=== PATIENT | female | born 1960 | race Caucasian/White ===

== ENCOUNTER → 2017-01-16 | Outpatient (CLI) | payer BC ==
[~2017-01-16] MED LIST: ESTCR VA
--- NOTE | 2017-01-17 07:39 | MAMMOGRAPHY REPORT ---
BILATERAL DIGITAL SCREENING MAMMOGRAM TOMOSYNTHESIS WITH CAD: 01/16/2017 CLINICAL HISTORY: Routine screening. Patient has no complaints. TECHNIQUE: Breast tomosynthesis in addition to standard 2D mammography was performed. Current study was also evaluated with a Computer Aided Detection (CAD) system. COMPARISON: Comparison is made to exams dated: 01/11/2016 mammogram, 01/07/2015 mammogram, 01/05/2014 josé luis mogram, 01/02/2013 mammogram, 01/02/2012 mammogram, and 12/28/2010 mammogram - [facility] ter. BREAST COMPOSITION: The tissue of both breasts is heterogeneously dense, which may obscure small mas ses. FINDINGS: The parenchymal pattern is unchanged. No developing mass, architectural distortion or clus ter of suspicious microcalcifications is seen in either breast. IMPRESSION: ACR BI-RADS CATEGORY 2: BENIGN There is no mammographic evidence of malignancy. A 1 year screening mammogram is recommended. The pa tient will receive written notification of the results. Approximately 10% of breast cancers are not detected with mammography. A negative mammographic report should not delay biopsy if a clinically suggestive mass is present. Rhoda Grajeda M.D. ay/:01/16/2017 16:22:47 Housing Project Manager: Tammy DAVIS(Andie)(M), [facility] letter sent: Normal 1/2 BI-RADS Code: ACR BI-RADS Category 2: Benign
== END | disposition home or self-care (01) ==
LOC: C.MAMM 09:01
PROVIDERS: ATTEND Obstetrics & Gynecology
DX: Z12.31 Encounter for screening mammogram for malignant neoplasm of breast (principal)

== ENCOUNTER 2018-10-25 01:44 | Observation (INO) ==
[2018-10-25] MEDS ORDERED: NITROGLYCERIN 2% OINTMENT 30GM TUBE EXT STA (01:59)
[2018-10-25] MEDS ORDERED: ASPIRIN CHEW 324 MG PO STA (01:59)
[2018-10-25 02:22] LABS: Hematocrit (blood only) 43.1 % (37-47); Hemoglobin 15.1 g/dL (12.0-16.0); Mean Platelet Volume 10.1 fL (7.4-10.4); Platelet Count 284 K/uL (130-400); RDW Coefficient of Variation 13.4 % (11.5-14.5); RDW Standard Deviation 43.4 fL (36.4-46.3); White Blood Count 6.54 K/uL (4.8-10.8)
[2018-10-25 02:31] LABS: iSTAT Hemoglobin 14.6 g/dl (12.0-16.0); iSTAT Ionized Calcium 1.2 mmol/l (1.12-1.32)
[2018-10-25 02:34] LABS: INR 1.2 (0.9-1.1); Partial Thromboplastin Time 28.3 Seconds (21.0-31.0); Prothrombin Time 11.9 Seconds (9.0-12.0)
[2018-10-25 02:44] LABS: Alanine Aminotransferase 34 U/L (12-78); Albumin Level 3.8 gm/dl (3.4-5.0); Aspartate Aminotransferase 26 U/L (15-37); BUN Creatinine Ratio 25.7 (10-20); Blood Urea Nitrogen 27 mg/dl (7-18); Calcium 9.2 mg/dl (8.5-10.1); Carbon Dioxide 28 mmol/L (21-32); Chloride 103 mmol/L (98-107); Creatinine Clr Calc Pharmacy 59.2 ml/min; Est GFR (African American) 67.3; Est GFR (Non-African American) 58.1; Glucose 93 mg/dl (70-99); Potassium 3.8 mmol/L (3.5-5.1); Sodium 136 mmol/L (136-145)
[2018-10-25 02:48] LABS: ALC (manual) 3.76 K/uL (1.2-3.4); Basophils # (manual) 0.17 K/uL (0-0.2); Basophils % (manual) 2.6 %; Eosinophils # (manual) 0.11 K/uL (0-0.5); Eosinophils % (manual) 1.7 %; Lymphocytes # (manual) 2.68 K/uL (1.2-3.4); Monocytes # (manual) 0.68 K/uL (0.11-0.59); Monocytes % (manual) 10.4 %; Neutrophils % (manual) 27.8 %; RBC Morphology Unremarkable; Reactive Lymphocytes # (manual) 1.08 K/uL
[2018-10-25 02:55] LABS: Albumin Globulin Ratio 0.9 (0.9-2); Alkaline Phosphatase 172 U/L (45-117); Bilirubin,Total 0.2 mg/dl (0.2-1); Globulin 4.1 gm/dl (2.5-4.0); Total Protein 7.9 gm/dl (6.4-8.2); Troponin I < 0.015 ng/ml (0-0.045)
[2018-10-25 03:07] LABS: T4 Free Thyroxine 1.15 ng/dl (0.8-1.6)
[2018-10-25 03:53] LABS: D Dimer 240 ug/L FEU (0-500)
--- NOTE | 2018-10-25 04:27 | Emergency Department Note ---
History of Present Illness General Chief complaint: Arrhythmia/Palpitations Stated complaint: HEART RACING Time Seen by Provider: 10/25/18 01:51 History of Present Illness Maximum Pain Intensity: 6 This is a 58-year-old female that presents to the emergency department with a past medical history for that of hypertension and hypercholesterolemia with complaints of "heart racing". The patient notes that around 11:30 PM she was awoken from sleep feeling short of breath, a pounding sensation in her chest and chest pressure that extended up to the left side of the jaw. She states that she has had something similar a few years ago but not this severe. She notes that her mother had her first heart attack in her late 50s and early 60s. She currently rates the discomfort in the region as a 6/10. She notes a pressure sensation in the chest. Home Medications Home Medications Medication Instructions Recorded Confirmed Type Multiple Suppliments/Vitamins 1 dose PO DAILY 10/25/18 10/25/18 History conjugated estrogens [Premarin] 1 dose VAGINAL DIRECTED 10/25/18 10/25/18 History mupirocin 1 applic TOPICAL BID PRN 10/25/18 10/25/18 History Allergies Allergy/AdvReac Type Severity Reaction Status Date / Time iodine Allergy Intermediate rash Verified 10/25/18 02:18 adhesive Allergy Mild SKIN Verified 10/25/18 02:18 IRRITATION Past Med/Surg History Medical History HTN (hypertension) (Chronic) Hypercholesterolemia Surgical History Previous section (Resolved) Social History Feels Safe at Home: Yes Smoking Status: Former smoker Review of Systems A total of 10 systems reviewed and were otherwise negative Physical Exam Vital Signs Vital Signs - 24 hr 10/25/18 01:48 10/25/18 02:10 10/25/18 02:49 Temperature 36.8 C Temperature Source Oral Sepsis Action Taken by Nursing No Action Required Pulse Rate 83 Pulse Rate [Apical] 71 Respiratory Rate 18 16 Respiratory Effort / Characteristics Non-Labored Spontaneous Respiratory Depth Normal Respiratory Pattern Regular Blood Pressure 136/72 Blood Pressure [Right Arm] 136/96 Blood Pressure Mean 93 Blood Pressure Mean [Right Arm] 109 Blood Pressure Position Sitting Pulse Oximetry 97 96 Oxygen Delivery Method Room Air Room Air 10/25/18 04:22 10/25/18 05:23 Temperature Temperature Source Sepsis Action Taken by Nursing Pulse Rate Pulse Rate [Apical] 63 71 Respiratory Rate 18 16 Respiratory Effort / Characteristics Respiratory Depth Respiratory Pattern Blood Pressure Blood Pressure [Right Arm] 145/90 H 125/81 Blood Pressure Mean Blood Pressure Mean [Right Arm] 108 95 Blood Pressure Position Pulse Oximetry 96 100 Oxygen Delivery Method Room Air Room Air VITAL SIGNS - Vital signs and nursing notes were reviewed. Stable and afebrile. GENERAL - 58-year-old female appearing her stated age who is in no acute distress but appears anxious and tearful. Communicates well with provider and answers questions appropriately. SKIN - Without rashes. HEAD - NC/AT. EYES - PERRL with EOMI bilaterally. Sclera anicteric. EARS - No deformities of external structures noted on gross examination bilaterally. No pain elicited with palpation of the tragus bilaterally. MOUTH/OROPHARYNX - Without perioral cyanosis. Buccal mucosa pink and moist and without leukoplakia. Tongue midline with equal elevation of palate bilaterally. No tonsillar hypertrophy, erythema, or exudates noted. Good dentition noted. NECK - Neck with FROM. Supple to palpation. No nuchal rigidity. LUNGS - Chest wall symmetric without accessory muscle use, intercostals retractions, or central cyanosis. Normal vesicular breath sounds CTA B/L. No wheezes, rales, or rhonchi appreciated. CARDIAC - RRR with S1/S2. No murmur, rubs, or gallops appreciated. ABDOMEN - Abdominal contour normal without pulsations or visible masses. BS normoactive all four quadrants. No tenderness, palpable masses, hepatosplenomegaly, or ascites noted. EXTREMITIES - No clubbing or peripheral cyanosis. No pretibial edema present. +5/5 strength noted in UE/LE bilaterally. NEUROLOGIC - Cranial nerves II through XII grossly intact. Sensory intact to light touch throughout. PSYCH - A&Ox3 and cooperates fully with examiner. Pt is very pleasant and interacts well with examiner. Course Administered Medications Discontinued Medications Aspirin (Aspirin) 324 mg PO NOW STA Stop: 10/25/18 02:00 Last Admin: 10/25/18 02:21 Dose: 324 mg Documented by: [id number] Nitroglycerin (Nitro-Bid 2%) 0.5 inch EXT NOW STA Stop: 10/25/18 02:00 Last Admin: 10/25/18 02:17 Dose: 0.5 inch Documented by: [id number] Medical Decision Making Laboratory Data Result diagrams: 10/25/18 02:05 10/25/18 02:05 Lab Results 10/25/18 10/25/18 10/25/18 Range/Units 02:05 02:05 02:05 WBC 6.54 (4.8-10.8) K/uL RBC 4.90 (4.2-5.4) M/uL Hgb 15.1 (12.0-16.0) g/dL POC Hgb (12.0-16.0) g/dl Hct 43.1 (37-47) % POC Hct (37-47) % MCV 88.0 (80-100) fL MCH 30.8 (25-34) pg MCHC 35.0 (32-36) g/dL RDW Std Deviation 43.4 (36.4-46.3) fL RDW Coeff of Jaymie 13.4 (11.5-14.5) % Plt Count 284 (130-400) K/uL MPV 10.1 (7.4-10.4) fL Neutrophils % (Manual) 27.8 % Lymphocytes % (Manual) 41.0 % Reactive Lymphs % (Man) 16.5 % Monocytes % (Manual) 10.4 % Eosinophils % (Manual) 1.7 % Basophils % (Manual) 2.6 % Neutrophils # (Manual) 1.82 (1.4-6.5) K/uL Total Absolute Neuts 1.82 (1.4-6.5) K/uL Lymphocytes # (Manual) 2.68 (1.2-3.4) K/uL Reactive Lymphs # 1.08 K/uL Total Abs Lymphocytes 3.76 H (1.2-3.4) K/uL Monocytes # (Manual) 0.68 H (0.11-0.59) K/uL Eosinophils # (Manual) 0.11 (0-0.5) K/uL Basophils # (Manual) 0.17 (0-0.2) K/uL RBC Morphology Unremarkable PT 11.9 (9.0-12.0) Seconds INR 1.2 H (0.9-1.1) APTT 28.3 (21.0-31.0) Seconds PTT Ratio 1.0 D-Dimer (0-500) ug/L FEU POC Sodium (135-144) mEq/L Sodium 136 (136-145) mmol/L POC Potassium (3.3-5.0) mEq/L Potassium 3.8 (3.5-5.1) mmol/L POC Chloride (101-112) mEq/L Chloride 103 (98-107) mmol/L Carbon Dioxide 28 (21-32) mmol/L POC Total CO2 (24-31) mEq/l Anion Gap 5.0 (3-11) POC Anion Gap (16-25) mmol/L POC BUN (7-18) mg/dl BUN 27 H (7-18) mg/dl Creatinine 1.05 (0.6-1.2) mg/dl POC Creatinine (0.6-1.3) mg/dl Est Cr Clr Drug Dosing 59.2 ml/min Est GFR ( Amer) 67.3 Est GFR (Non-Af Amer) 58.1 BUN/Creatinine Ratio 25.7 H (10-20) Glucose 93 (70-99) mg/dl POC Glucose (other) (70-99) mg/dl Calcium 9.2 (8.5-10.1) mg/dl POC Ioniz Calcium Monique (1.12-1.32) mmol/l Total Bilirubin 0.2 (0.2-1) mg/dl AST 26 (15-37) U/L ALT 34 (12-78) U/L Alkaline Phosphatase 172 H (45-117) U/L POC Troponin I (0-0.045) ng/ml Troponin I < 0.015 (0-0.045) ng/ml Total Protein 7.9 (6.4-8.2) gm/dl Albumin 3.8 (3.4-5.0) gm/dl Globulin 4.1 H (2.5-4.0) gm/dl Albumin/Globulin Ratio 0.9 (0.9-2) Lipase 283 (73-393) U/L TSH 4.960 H (0.300-4.500) uIu/ml Free T4 1.15 (0.8-1.6) ng/dl 10/25/18 10/25/18 10/25/18 Range/Units 02:14 02:14 03:36 WBC (4.8-10.8) K/uL RBC (4.2-5.4) M/uL Hgb (12.0-16.0) g/dL POC Hgb 14.6 (12.0-16.0) g/dl Hct (37-47) % POC Hct 43 (37-47) % MCV (80-100) fL MCH (25-34) pg MCHC (32-36) g/dL RDW Std Deviation (36.4-46.3) fL RDW Coeff of Jaymie (11.5-14.5) % Plt Count (130-400) K/uL MPV (7.4-10.4) fL Neutrophils % (Manual) % Lymphocytes % (Manual) % Reactive Lymphs % (Man) % Monocytes % (Manual) % Eosinophils % (Manual) % Basophils % (Manual) % Neutrophils # (Manual) (1.4-6.5) K/uL Total Absolute Neuts (1.4-6.5) K/uL Lymphocytes # (Manual) (1.2-3.4) K/uL Reactive Lymphs # K/uL Total Abs Lymphocytes (1.2-3.4) K/uL Monocytes # (Manual) (0.11-0.59) K/uL Eosinophils # (Manual) (0-0.5) K/uL Basophils # (Manual) (0-0.2) K/uL RBC Morphology PT (9.0-12.0) Seconds INR (0.9-1.1) APTT (21.0-31.0) Seconds PTT Ratio D-Dimer 240 (0-500) ug/L FEU POC Sodium 138 (135-144) mEq/L Sodium (136-145) mmol/L POC Potassium 4.0 (3.3-5.0) mEq/L Potassium (3.5-5.1) mmol/L POC Chloride 100 L (101-112) mEq/L Chloride (98-107) mmol/L Carbon Dioxide (21-32) mmol/L POC Total CO2 25 (24-31) mEq/l Anion Gap (3-11) POC Anion Gap 18.0 (16-25) mmol/L POC BUN 27 H (7-18) mg/dl BUN (7-18) mg/dl Creatinine (0.6-1.2) mg/dl POC Creatinine 1.0 (0.6-1.3) mg/dl Est Cr Clr Drug Dosing ml/min Est GFR ( Amer) Est GFR (Non-Af Amer) BUN/Creatinine Ratio (10-20) Glucose (70-99) mg/dl POC Glucose (other) 98 (70-99) mg/dl Calcium (8.5-10.1) mg/dl POC Ioniz Calcium Monique 1.20 (1.12-1.32) mmol/l Total Bilirubin (0.2-1) mg/dl AST (15-37) U/L ALT (12-78) U/L Alkaline Phosphatase (45-117) U/L POC Troponin I < 0.03 (0-0.045) ng/ml Troponin I (0-0.045) ng/ml Total Protein (6.4-8.2) gm/dl Albumin (3.4-5.0) gm/dl Globulin (2.5-4.0) gm/dl Albumin/Globulin Ratio (0.9-2) Lipase (73-393) U/L TSH (0.300-4.500) uIu/ml Free T4 (0.8-1.6) ng/dl 10/25/18 Range/Units 04:16 WBC (4.8-10.8) K/uL RBC (4.2-5.4) M/uL Hgb (12.0-16.0) g/dL POC Hgb (12.0-16.0) g/dl Hct (37-47) % POC Hct (37-47) % MCV (80-100) fL MCH (25-34) pg MCHC (32-36) g/dL RDW Std Deviation (36.4-46.3) fL RDW Coeff of Jaymie (11.5-14.5) % Plt Count (130-400) K/uL MPV (7.4-10.4) fL Neutrophils % (Manual) % Lymphocytes % (Manual) % Reactive Lymphs % (Man) % Monocytes % (Manual) % Eosinophils % (Manual) % Basophils % (Manual) % Neutrophils # (Manual) (1.4-6.5) K/uL Total Absolute Neuts (1.4-6.5) K/uL Lymphocytes # (Manual) (1.2-3.4) K/uL Reactive Lymphs # K/uL Total Abs Lymphocytes (1.2-3.4) K/uL Monocytes # (Manual) (0.11-0.59) K/uL Eosinophils # (Manual) (0-0.5) K/uL Basophils # (Manual) (0-0.2) K/uL RBC Morphology PT (9.0-12.0) Seconds INR (0.9-1.1) APTT (21.0-31.0) Seconds PTT Ratio D-Dimer (0-500) ug/L FEU POC Sodium (135-144) mEq/L Sodium (136-145) mmol/L POC Potassium (3.3-5.0) mEq/L Potassium (3.5-5.1) mmol/L POC Chloride (101-112) mEq/L Chloride (98-107) mmol/L Carbon Dioxide (21-32) mmol/L POC Total CO2 (24-31) mEq/l Anion Gap (3-11) POC Anion Gap (16-25) mmol/L POC BUN (7-18) mg/dl BUN (7-18) mg/dl Creatinine (0.6-1.2) mg/dl POC Creatinine (0.6-1.3) mg/dl Est Cr Clr Drug Dosing ml/min Est GFR ( Amer) Est GFR (Non-Af Amer) BUN/Creatinine Ratio (10-20) Glucose (70-99) mg/dl POC Glucose (other) (70-99) mg/dl Calcium (8.5-10.1) mg/dl POC Ioniz Calcium Monique (1.12-1.32) mmol/l Total Bilirubin (0.2-1) mg/dl AST (15-37) U/L ALT (12-78) U/L Alkaline Phosphatase (45-117) U/L POC Troponin I (0-0.045) ng/ml Troponin I < 0.015 (0-0.045) ng/ml Total Protein (6.4-8.2) gm/dl Albumin (3.4-5.0) gm/dl Globulin (2.5-4.0) gm/dl Albumin/Globulin Ratio (0.9-2) Lipase (73-393) U/L TSH (0.300-4.500) uIu/ml Free T4 (0.8-1.6) ng/dl Imaging Data My Impression: Chest one view portable per my interpretation: No pneumothorax, consolidation or pneumothorax. No acute process. MDM Narrative Patient was seen and evaluated as above in room B12. Review was performed of nursing notes and vital signs. After obtaining a thorough history and physical examination the above work up was performed. She presents to us today with nuno st pressure that radiates up the left side of the neck. She is nontoxic on exam. Vital signs are stable. She notes a family history, specifically her mother with a heart attack around the same age. A bedside EKG was performed and reveals normal sinus rhythm, rate of 75 bpm. No ectopy or ischemic change. The patient's history is concerning for that of possible ACS/paroxysmal atrial fibrillation. Certainly there are other possible less life-threatening causes such as reflux as well. Decision was made to give aspirin as well as nitroglycerin paste. She was reevaluated with resolution of her symptoms. At this time her heart score is a 4 given the concerning history and family history as well. I will also note that she has a history of hypertension and high cholesterol which although the hypertension at this time is well controlled with diet and exercise still will consider this a risk factor. In review of her labs, there is no leukocytosis or concerning anemia. No evidence of kidney or liver failure. There is no evidence of hypercoagulable state. INR 1.2 d-dimer 240. She is not on anticoagulants. She appears slightly dehydrated. Troponin negative. TSH is elevated. Free T4 appropriate. I did thoroughly discussed with the patient benefit versus risk of inpatient versus outpatient management. At this time it is felt that she would be better served in the inpatient setting for further cardiac workup. Case was discussed with the attending physician and subsequently the hospitalist, Dr. Martin. Please refer to further documentation regarding her stay. In the evaluation and treatment of this patient, the following differential diagnoses were considered: FL, ASC, Dysrhythmia, Angina, Mediastinitis, GERD, Esophagitis, PE, Pneumonia, Bronchitis, Costochondritis, Rib Fracture, Zoster. Impression & Plan Chest pressure, Heart palpitations Discharge Plan Visit Data Chief Complaint: Arrhythmia/Palpitations Stated Complaint: HEART RACING ED Provider: Sean Ann ED Midlevel Provider: Terence Augustine Discharge Problem: Chest pressure, Heart palpitations Patient Disposition: Admitted As Inpatient Condition: Good Discharge Instructions Interventions: ED Discharge Assessment Last Done: 10/25/18 05:39
--- NOTE | 2018-10-25 05:13 | History & Physical Report ---
Date of Service October 25, 2018 Assessment & Plan (1) HTN (hypertension): 58-year-old female with a past medical history of weight controlled hypertension presents with chest tightness and heart palpitations. Patient has a significant family historyMI in her mother and fatal MO in her grandmother. She states that she has borderline hyperlipidemia and exercise controlled hypertension. She denies diabetes. Chest tightness lasted for approximately 2 hours, relieved with nitro. Chest tightness/heart palpitations EKG showed normal sinus rhythm, initial troponins were negative During history the patient was having occasional PVCs on heart monitor Is being admitted to rule out acute coronary syndrometrending troponins, morning EKG Received aspirin 324, Nitropaste Keep the patient n.p.o. DVT prophylaxis SCDs/ambulate CODE STATUS Full (2) Previous section: (3) Heart palpitations: (4) Chest tightness: History of Present Illness Primary Care Provider: Eugene Sutton, 58-year-old female with a past medical history of weight controlled hypertension and borderline hyperlipidemia presents with pressure-like chest tightness and heart palpitations. She states that the symptoms began at 1130 tonight. She describes being suddenly awoken by her who had arrived home from a business tripshortly after she went back to bed and was again awoken with her presenting symptoms. She describes the symptoms as heart palpitations associated with chest tightness that radiates up into her neck. She describes that the symptoms were relieved approximately 2 hours later when she received nitro in the ED. She describes a family history significant for coronary artery diseaseher mother had an MO in her 60s and of CHF, her grandmother had a fatal MO. She describes being under excessive amounts of stress recently and became tearful during the historyshe states that she is taking on a lot at home and at work. Allergies Allergy/AdvReac Type Severity Reaction Status Date / Time iodine Allergy Intermediate rash Verified 10/25/18 02:18 adhesive Allergy Mild SKIN Verified 10/25/18 02:18 IRRITATION Home Medications Home Medications Medication Instructions Recorded Confirmed Type Multiple Suppliments/Vitamins 1 dose PO DAILY 10/25/18 10/25/18 History conjugated estrogens [Premarin] 1 dose VAGINAL DIRECTED 10/25/18 10/25/18 History mupirocin 1 applic TOPICAL BID PRN 10/25/18 10/25/18 History Past Med/Surg History Medical History HTN (hypertension) (Chronic) Hypercholesterolemia Surgical History Previous section (Resolved) Social History Feels Safe at Home: Yes Smoking Status: Former smoker Review of Systems Review of Systems: All systems reviewed & are unremarkable except as noted in HPI & below Physical Exam Constitutional: WD/WN, vitals as above Eyes: PERRL, conjunctivae normal, anicteric sclerae ENMT: external ear and nose normal, oropharynx normal Neck: trachea midline, no thyromegaly Respiratory: normal respiratory effort, lungs clear to auscultation Cardiovascular: RRR, no murmur, no edema Gastrointestinal (Abdomen): normal bowel sounds, soft, nontender, no hepatosplenomegaly Musculoskeletal: no cyanosis or clubbing, extremities motor strength 5/5 Skin: no rashes, warm and dry Neurologic: patellar DTR's 2+ bilat, sensation intact and PERRL, EOMI, accommodation nl, no face palsy, no dysarthria Psychiatric: A+Ox3, euthymic affect Results & Data Vital Signs (Past 12 Hours) Vital Signs Temp Pulse Pulse Resp BP BP Pulse Ox 10/25/18 04:22 63 18 145/90 H 96 10/25/18 02:49 71 16 136/96 96 10/25/18 01:48 36.8 C 83 18 136/72 97 Supervising Physician Co-Signing Physician Notes Attending addendum: I have physically seen this patient, have supervised the medical residents activities, and agree with the H&P unless as otherwise noted. Assessment and Plan: Heart palpitations/chest tightness- The patient will be admitted to telemetry for serial cardiac enzymes, serial EKG's, cardiac rhythm monitoring and a 2-D echocardiogram with Dopplers. Mother with history of coronary disease, father has history of atrial fibrillation. We will assess for acute coronary syndrome, but symptoms are more suggestive of PAF. Continue aspirin and Nitropaste. Order a fasting lipid panel and hemoglobin A1c. Potassium level 4.0. Add magnesium level to ED labs Remainder of orders and notations as noted. Resident Activity Tracking Resident Involvement: Resident Care Provided Care Provided: [facility]
--- NOTE | 2018-10-25 06:22 | XRay Report ---
XR chest 1V portable CLINICAL HISTORY: chest discomfort pain COMPARISON STUDY: 05/12/2013 FINDINGS: The bones soft tissues and hemidiaphragms are normal. The cardiomediastinal silhouette is n ormal. The lungs are clear. The pulmonary vasculature is normal. IMPRESSION: Negative chest. The above report was generated using voice recognition software. It may contain grammatical, syntax or spelling errors. Electronically signed by: Mark Chang M.D. 10/25/2018 6:21 AM
[2018-10-25] MEDS ORDERED: ACETAMINOPHEN 325 MG TAB PO PRN (07:35)
[2018-10-25] MEDS ORDERED: NITROGLYCERIN SL 0.4 MG/TAB TAB SL PRN (07:35)
--- NOTE | 2018-10-25 13:45 | Discharge Summary ---
Date of Service October 25, 2018 Admission HPI Per Admitting Provider 58-year-old female with a past medical history of weight controlled hypertension and borderline hyperlipidemia presents with pressure-like chest tightness and heart palpitations. She states that the symptoms began at 1130 tonight. She describes being suddenly awoken by her who had arrived home from a business tripshortly after she went back to bed and was again awoken with her presenting symptoms. She describes the symptoms as heart palpitations associated with chest tightness that radiates up into her neck. She describes that the symptoms were relieved approximately 2 hours later when she received nitro in the ED. She describes a family history significant for coronary artery diseaseher mother had an DE in her 60s and of CHF, her grandmother had a fatal DE. She describes being under excessive amounts of stress recently and became tearful during the historyshe states that she is taking on a lot at home and at work. Principal Diagnosis Chest pain Discharge Exam Constitutional WD/WN, vitals as above Respiratory normal respiratory effort, lungs clear to auscultation Cardiovascular RRR, no murmur, no edema Gastrointestinal (Abdomen) normal bowel sounds, soft, nontender, no hepatosplenomegaly Musculoskeletal no cyanosis or clubbing, extremities motor strength 5/5 Skin no rashes, warm and dry Neurologic moves all extremities and awake Psychiatric A+Ox3, euthymic affect Discharge Data Allergies Allergy/AdvReac Type Severity Reaction Status Date / Time iodine Allergy Intermediate rash Verified 10/25/18 02:18 adhesive Allergy Mild SKIN Verified 10/25/18 02:18 IRRITATION Consultations 10/25/18 04:07 ED Decision to Admit Stat Hospital Course (1) HTN (hypertension): Chest tightness/heart palpitations EKG showed normal sinus rhythm, troponins negative x3 Occasional PVCs on monitor Received aspirin 324, Nitropaste - D dimer normal at 240 - Stress echo negative for ischemia on stress echo and exercise ECG a 97% MPHR. EF 65%, no wall motion abnormalities. Mild concentric left ventricular hypertrophy. - She did mention having palpitations at times and felt them during her stress test. No inducible arrhythmia during stress test, no cardiomyopathy. Review of telemetry did show brief section of what appears to be artifact. If these palp itations continue, may want to consider a Holter monitor study. - She is no longer having symptoms of sob or chest pain since admission (2) Previous section: (3) Heart palpitations: (4) Chest tightness: Total Time Total Time Spent Total Time Spent (In Minutes): greater than 30 minutes Discharge Plan Discharge Items Patient Disposition: Home - Self-Care Reason For Visit: ACS RULE OUT Discharge Diagnosis: Chest pain Condition: Good Discharge Goals: Diagnostic testing Activity: Resume your previous activity Non-emergency contact: Primary Care Provider Call non-emergency contact if: you have any medication questions and your symptoms worsen Follow-up/Referrals: Eugene Sutton, DO [Primary Care Provider] - Diet: Regular Addtl Provider Instructions: Please follow up with your primary care provider next week. Your stress echo showed that you have good exercise tolerance without any signs of your heart being deprived of oxygen. There was indication of mild effect on your heart muscle due to hypertension. It is important to continue monitoring your blood pressure and working with your provider to keep them well managed. Prescriptions: Continued Premarin 0.625 mg/gram Cream 1 dose vaginal DIRECTED RF: 0 mupirocin 2 % Ointment 1 applic TOPICAL BID PRN (Reason: AFFECTED SKIN AREAS) RF: 0 Multiple Suppliments/Vitamins 1 dose PO DAILY RF: 0 Stand-Alone Forms: [facility] Discharge Orders: Discharge Order (Routine); Ordered 10/25/18 Ordered By: Crissy Sears Admission Data Admit Date/Time: 10/25/18 05:01 Attending Provider: Cruz Herman Admit Provider: Daren Abdullahi Primary Care Provider: Eugene Sutton Other Providers: Cruz Herman Service: Telemetry
== END 2018-10-25 14:34 | disposition home or self-care (01) ==
LOC: ED 01:44 → 2S 01:44

== ENCOUNTER 2019-05-29 12:00 | Inpatient (IN) ==
[2019-05-29] MEDS ORDERED: SODIUM CHLORIDE 0.9% 1000ML 1,000 ML IV SCH (12:30)
[2019-05-29 12:45] LABS: Basophils # (auto) 0.07 K/uL (0-0.2); Basophils % (auto) 1.1 %; Eosinophils # (auto) 0.22 K/uL (0-0.5); Eosinophils % (auto) 3.5 %; Hematocrit (blood only) 41.4 % (37-47); Hemoglobin 14.4 g/dL (12.0-16.0); Immature Granulocytes # (auto) 0.02 K/uL (0.00-0.02); Immature Granulocytes % (auto) 0.3 %; Lymphocytes % (auto) 30.3 %; Mean Corpuscular Hemoglobin 30.7 pg (25-34); Mean Corpuscular Hgb Conc 34.8 g/dL (32-36); Mean Corpuscular Volume 88.3 fL (80-100); Mean Platelet Volume 9.7 fL (7.4-10.4); Monocytes # (auto) 0.62 K/uL (0.11-0.59); Monocytes % (auto) 9.9 %; Neutrophils # (auto) 3.44 K/uL (1.4-6.5); Neutrophils % (auto) 54.9 %; Platelet Count 293 K/uL (130-400); RDW Coefficient of Variation 13.6 % (11.5-14.5); RDW Standard Deviation 43.6 fL (36.4-46.3); Red Blood Count 4.69 M/uL (4.2-5.4); White Blood Count 6.27 K/uL (4.8-10.8)
--- NOTE | 2019-05-29 12:51 | XRay Report ---
XR chest 1V portable CLINICAL HISTORY: 58 years-old Female presenting with Chest Pain. TECHNIQUE: Portable upright AP view of the chest was obtained. COMPARISON: 10/25/2018. FINDINGS: Cardiomediastinal silhouette normal. No focal opacity. No large effusion or pneumothorax. Osseous str uctures normal. Upper abdomen normal. IMPRESSION: 1. No acute cardiopulmonary disease. Electronically signed by: Narciso Dye M.D. 05/29/2019 12:50 PM
[2019-05-29 12:58] LABS: INR 1.3 (0.9-1.1); Partial Thromboplastin Ratio 1.1; Partial Thromboplastin Time 29.3 Seconds (21.0-31.0)
[2019-05-29 13:04] LABS: Albumin Level 4.1 gm/dl (3.4-5.0); BUN Creatinine Ratio 17.8 (10-20); Calcium 9.8 mg/dl (8.5-10.1); Creatinine Clr Calc Pharmacy 54.4 ml/min; Est GFR (African American) 69.7; Est GFR (Non-African American) 60.2; Potassium 3.6 mmol/L (3.5-5.1)
[2019-05-29 13:09] LABS: Bilirubin,Total 0.6 mg/dl (0.2-1); Globulin 4.2 gm/dl (2.5-4.0); Total Protein 8.3 gm/dl (6.4-8.2); Troponin I 0.015 ng/ml (0-0.045)
[2019-05-29] MEDS ORDERED: GI COCKTAIL ED USE PO ONE (14:13)
[2019-05-29] MEDS ORDERED: ASPIRIN CHEW 324 MG PO STA (14:13)
[2019-05-29] MEDS ORDERED: FAMOTIDINE 20 MG TAB PO ONE (14:13)
--- NOTE | 2019-05-29 16:53 | Cardiology Consultation ---
Date of Consultation May 29, 2019 Assessment & Plan (1) Chest pain: I am concerned that this chest discomfort is due to coronary artery disease. She had it earlier this year, now it is recurrent only this time the cardiac enzymes are slightly abnormal and rising. I am not going to do a stress test, I believe she should be treated with intravenous heparin as well as nitrates to try to control her discomfort. With recurrent discomfort and electrocardiographic changes we may want to do an urgent catheterization. If the discomfort is relieved with medical therapy I would still plan on doing catheterization, probably tomorrow morning. History of Present Illness Reason for Consultation: Chest pain History of Present Illness This is a 58-year-old woman who has a history of hypertension as well as a strong family history of heart disease. She developed chest discomfort in October 2018 and presented here, her symptoms were relieved after about 2 hours in the ED. Her troponin measurements at that time were unremarkable and she went on to have a treadmill stress echocardiogram which was normal. She presents now with recurrent chest discomfort which she describes as a burning sensation in her chest. It had been relieved after her initial presentation, and her initial troponins were below the abnormal range although the second was slightly increased compared to the first therefore we contemplated a stress test following a third enzyme. The enzymes were drawn close together, however the third enzyme reading is 0.047, technically positive, therefore we canceled the stress test. I saw her in the echo lab. She is complaining of the substernal burning type sensation. This started several days ago, however this morning she noticed that it was much more pronounced and if she would exert herself such as walking it would tend to be present, if she stopped and rested and did not move it would tend to resolve. She therefore came into the emergency room. The episodes would probably last about 20 minutes or less when she had them. Recently she was in [place] and was bike riding and did not have any difficulty, she has not been walking very much because she is having trouble with her feet at the moment. When she came up to the lab she was having a little bit of that burning sensation, but time we finish the echo that had resolved. Allergies Allergy/AdvReac Type Severity Reaction Status Date / Time iodine Allergy Intermediate rash Verified 05/29/19 13:51 adhesive Allergy Mild SKIN Verified 05/29/19 13:51 IRRITATION Home Medications Home Medications Medication Instructions Recorded Confirmed Type Premarin 1 dose VAGINAL DIRECTED 10/25/18 05/29/19 History mupirocin 1 applic TOPICAL BID PRN 10/25/18 05/29/19 History calcium carb-magnesium oxide-vit 1 tab PO BID tab 04/01/19 05/29/19 History D3 400 mg-167 mg-133 unit tablet coenzyme Q10 100 mg capsule 100 mg PO QAM cap 04/01/19 05/29/19 History vitamin A 8,000 unit capsule 8,000 unit PO QAM cap 04/01/19 05/29/19 History vitamin B complex 1 cap PO QPM 04/01/19 05/29/19 History vitamin E (dl, acetate) 400 unit 400 units PO HS 04/01/19 05/29/19 History capsule Vitamin D Drops 1 drp PO DAILY 05/29/19 05/29/19 History ascorbic [id number] 1,000 mg PO QAM 05/29/19 05/29/19 History [Emergen-C] Patient History Medical History (Updated 05/29/19 @ 16:51 by Jose Butterfield MD) Anorexia nervosa Diverticulosis Dysfunctional uterine bleeding Heart palpitations (Acute) HTN (hypertension) (Chronic) Hypercholesterolemia Macular edema Migraine Spinal stenosis (Acute) Spondylolisthesis, acquired (Acute) Surgical History (Updated 05/08/19 @ 09:25 by Sana Sen MD, FACOG) Cataract H/O foot surgery H/O hand surgery History of colposcopy History of dental surgery History of dilation and curettage Previous section (Resolved) S/P tonsillectomy S/P tubal ligation Family History (Updated 04/01/19 @ 09:07 by Tammy Shukla) Aunt Breast cancer paternal Uncle Breast cancer maternal Mother Heart disease Hypertension Kidney disease Myocardial infarction Sister Kidney disease Father Lung cancer Social History (Updated 05/08/19 @ 09:03 by Lisa Scott) Preferred Language: Polish Communication Ability: Effective Beliefs That Will Affect Care: None Current Living Situation: Spouse Feels Safe at Home: Yes Smoking Status: Former smoker Hx Alcohol Use: No Hx Substance Use: No Dental Care, Regularly: Yes Physical Exam Physical Exam: Constitutional: Alert, cooperative and in no distress. HEENT: Unremarkable Neck: No jugular venous distention, carotid pulses are normal and equal bilaterally without bruits. Pulmonary: Clear to auscultation bilaterally. Cardiac: Regular rhythm with no murmur, gallop or rub. Abdomen: Soft, nontender with normal bowel sounds. Extremities: No edema. Distal pulses intact. Neurologic: No focal findings. Gait is steady. Skin: No rash, ecchymoses or petechiae. Results & Data Vital Signs (Past 12 Hours) Vital Signs Temp Pulse Pulse Resp BP BP Pulse Ox 05/29/19 16:00 62 16 125/75 97 05/29/19 14:00 64 16 136/83 96 05/29/19 12:24 61 16 99 05/29/19 12:19 36.8 C 65 20 167/99 H 100 Diagnostic Findings She has had 2 electrocardiograms here, the first is nearly normal, the second suggest some slight inferior ST-T abnormalities although is not far from normal. PG Care Time/CCT Total # of Minutes Spent Total Time Spent with Patient: Total time spent is greater than 50% in coordination of care (as documented) at patient's floor/unit and/or counseling patient:
[2019-05-29] MEDS ORDERED: HEPARIN SODIUM/DEXTROSE 25,000 UNITS/500 ML BAG IV SCH ×2 (17:00→18:30)
--- NOTE | 2019-05-29 17:29 | History & Physical Report ---
Date of Service May 29, 2019 Assessment & Plan (1) Chest pain: Sublingual nitroglycerin as needed basis. Patient will be monitored on the telemetry floor. Rule out WI. Add Nitropaste. Present on Admission?: Yes (2) ACS (acute coronary syndrome): Monitor EKG and cardiac enzymes per protocol Cardiology consulted. Plan for cardiac cath in a.m. Patient started on IV heparin drip. Present on Admission?: Yes (3) Anxiety: Ativan as needed basis (4) HTN (hypertension): Add beta-blockers (5) Dyslipidemia: Check fasting lipid profile in am. History of Present Illness Chief Complaint: Chest pain Primary Care Provider: Eugene Sutton, This is a 58-year-old woman who has a history of borderline hypertension as well as a strong family history of heart disease. She developed chest discomfort in October 2018 and presented here, her symptoms were relieved after about 2 hours in the ED. Her troponin measurements at that time were unremarkable and she went on to have a treadmill stress echocardiogram which was normal. She presents now with recurrent chest discomfort which she describes as a burning sensation in her chest, which started last evening. It had been relieved after her initial presentation, and her initial troponins were below the abnormal range although the second was slightly increased compared to the first therefore we contemplated a stress test following a third enzyme. The enzymes were drawn close together, however the third enzyme reading is 0.047, technically positive. She is complaining of the substernal burning type sensation. This started several days ago, however this morning she noticed that it was much more pronounced and if she would exert herself such as walking it would tend to be present, if she stopped and rested and did not move it would tend to resolve. She therefore came into the emergency room. The episodes would probably last about 20 minutes or less when she had them. Recently she was in [place] and was bike riding and did not have any difficulty, she has not been walking very much because she is having trouble with her feet at the moment. She will be admitted for further evaluation and management. Cardiology was consulted and plan is for cardiac cath in the a.m. Allergies Allergy/AdvReac Type Severity Reaction Status Date / Time iodine Allergy Intermediate rash Verified 05/29/19 13:51 adhesive Allergy Mild SKIN Verified 05/29/19 13:51 IRRITATION Home Medications Home Medications Medication Instructions Recorded Confirmed Type Premarin 1 dose VAGINAL DIRECTED 10/25/18 05/29/19 History mupirocin 1 applic TOPICAL BID PRN 10/25/18 05/29/19 History calcium carb-magnesium oxide-vit 1 tab PO BID tab 04/01/19 05/29/19 History D3 400 mg-167 mg-133 unit tablet coenzyme Q10 100 mg capsule 100 mg PO QAM cap 04/01/19 05/29/19 History vitamin A 8,000 unit capsule 8,000 unit PO QAM cap 04/01/19 05/29/19 History vitamin B complex 1 cap PO QPM 04/01/19 05/29/19 History vitamin E (dl, acetate) 400 unit 400 units PO HS 04/01/19 05/29/19 History capsule Vitamin D Drops 1 drp PO DAILY 05/29/19 05/29/19 History ascorbic [id number]-iln 1,000 mg PO QAM 05/29/19 05/29/19 History [Emergen-C] Past Med/Surg History Medical History (Updated 05/29/19 @ 17:52 by Michael Chang MD) Anorexia nervosa Anxiety Diverticulosis Dysfunctional uterine bleeding Dyslipidemia Heart palpitations (Acute) HTN (hypertension) (Chronic) HTN (hypertension) Hypercholesterolemia Macular edema Migraine Spinal stenosis (Acute) Spondylolisthesis, acquired (Acute) Surgical History Cataract H/O foot surgery H/O hand surgery History of colposcopy History of dental surgery History of dilation and curettage Previous section (Resolved) S/P tonsillectomy S/P tubal ligation Family History Aunt Breast cancer paternal Uncle Breast cancer maternal Mother Heart disease Hypertension Kidney disease Myocardial infarction Sister Kidney disease Father Lung cancer Social History Preferred Language: Slovak Communication Ability: Effective Beliefs That Will Affect Care: None Current Living Situation: Spouse Feels Safe at Home: Yes Smoking Status: Former smoker Hx Alcohol Use: No Hx Substance Use: No Dental Care, Regularly: Yes Review of Systems Review of Systems: All systems reviewed & are unremarkable except as noted in HPI & below Physical Exam Physical Exam: GENERAL : No acute distress EYES: No icterus, gaze conjugate NOSE: No evidence of epistaxis MOUTH: No lesions or candidiasis, mucosa moist NECK: Supple LUNGS: CTA B/L, no wheezes, rales or rhonchi HEART: Regular, rate controlled ABDOMEN: Soft, NT, ND, BS Present EXTREMITIES: No LE edema, pedal pulses intact NEURO: A&OX3 Results & Data Vital Signs (Past 12 Hours) Vital Signs Temp Pulse Pulse Resp BP BP Pulse Ox 05/29/19 16:00 62 16 125/75 97 05/29/19 14:00 64 16 136/83 96 05/29/19 12:24 61 16 99 05/29/19 12:19 98.2 F 65 20 167/99 H 100 Laboratory Results 05/29/19 12:34 05/29/19 12:34 Diagnostic Findings XR chest 1V portable CLINICAL HISTORY: 58 years-old Female presenting with Chest Pain. TECHNIQUE: Portable upright AP view of the chest was obtained. COMPARISON: 10/25/2018. FINDINGS: Cardiomediastinal silhouette normal. No focal opacity. No large effusion or pneumothorax. Osseous structures normal. Upper abdomen normal. IMPRESSION: 1. No acute cardiopulmonary disease. Code Status & VTE Plan Code Status full code VTE Prophylaxis Plan VTE Prophylaxis will be ordered: Yes PG Care Time/CCT Total # of Minutes Spent Total Time Spent with Patient: Total time spent is greater than 50% in coordination of care (as documented) at patient's floor/unit and/or counseling patient:
[2019-05-29] MEDS ORDERED: ACETAMINOPHEN 325 MG TAB PO PRN (18:23)
[2019-05-29] MEDS ORDERED: MAGNESIUM HYDROXIDE SUSP 30 ML UDC PO PRN (18:23)
[2019-05-29] MEDS ORDERED: MUPIROCIN 2% OINT 22 GM TUBE EXT PRN (18:23)
[2019-05-29] MEDS ORDERED: ZOLPIDEM TARTRATE 5 MG TAB PO PRN (18:23)
[2019-05-29] MEDS ORDERED: NITROGLYCERIN SL 0.4 MG/TAB TAB SL PRN (18:23)
[2019-05-29] MEDS ORDERED: ONDANSETRON INJ 2 MG/ML 2 ML VIAL IV PRN (18:23)
[2019-05-29] MEDS ORDERED: LORazepam 1 MG TAB PO PRN (18:23)
[2019-05-29] MEDS ORDERED: POLYETHYLENE (MIRALAX) 17 GM PACK PO PRN (18:23)
[2019-05-29] MEDS ORDERED: ALUMINUM/MAGNESIUM SUSP 30 ML UDC PO PRN (18:23)
[2019-05-29] MEDS ORDERED: HEPARIN IV BOLUS 5,000 UNITS in SYRINGE 0 ML IV STA (18:30)
--- NOTE | 2019-05-29 19:06 | Emergency Department Note ---
Entered by Aparan Beth acting as a scribe for Walker Grace MD History of Present Illness General Chief complaint: Chest Pain Stated complaint: SOB CHEST PAIN TINGLING DOWN ARM AND UP NECK Time Seen by Provider: 05/29/19 12:23 Source: patient History of Present Illness Onset (ago): day(s) (last night) Location: chest Radiation: back and other (left shoulder, left armpit) Pain Consistency: + intermittent Maximum Pain Intensity: 4 Relieved By: + rest Exacerbated By: + movement (exertion) Associated symptoms: + other (upper abdominal discomfort); no cough, no diaphoresis, no fever/chills (fever) and no nausea/vomiting The patient is a 58 year old female w/ PMHx anorexia nervosa, anxiety, diverticulosis, dyslipidemia, HTN, hypercholesterolemia, macular edema, spinal stenosis, and tubal ligation who presents to the ED w/ CC of intermittent chest pain starting last night. The patient states that last night she noticed this left sided chest pain that radiates into her left shoulder, left armpit, and back. She reports that she didnt think much of it, but this morning, anytime she would exert herself, she would have the pain. She notes that it is more intense than it was last night. She states that even walking across the room it came on. The patient notes that rest makes it better. The patient notes that her mother did have an SC at the age of 58. The patient complains of a little upper abdominal discomfort this morning. The patient notes that she does drink a lcohol occasionally. The patient denies a history of a heart attack, a history of blood clots, a cough, fever, nausea, vomiting, diaphoresis, and ever being a smoker. Home Medications Home Medications Medication Instructions Recorded Confirmed Type Premarin 1 dose VAGINAL 2XWK 10/25/18 05/29/19 History mupirocin 1 applic TOPICAL BID PRN 10/25/18 05/29/19 History calcium carb-magnesium oxide-vit 1 tab PO BID tab 04/01/19 05/29/19 History D3 400 mg-167 mg-133 unit tablet coenzyme Q10 100 mg capsule 100 mg PO QAM cap 04/01/19 05/29/19 History vitamin A 8,000 unit capsule 8,000 unit PO QAM cap 04/01/19 05/29/19 History vitamin B complex 1 cap PO QPM 04/01/19 05/29/19 History vitamin E (dl, acetate) 400 unit 400 units PO HS 04/01/19 05/29/19 History capsule Vitamin D Drops 1 drp PO DAILY 05/29/19 05/29/19 History ascorbic uvst-nphygsar-nky 1,000 mg PO QAM 05/29/19 05/29/19 History [Emergen-C] Allergies Allergy/AdvReac Type Severity Reaction Status Date / Time iodine Allergy Intermediate rash Verified 05/29/19 13:51 adhesive Allergy Mild SKIN Verified 05/29/19 13:51 IRRITATION Past Med/Surg History Medical History Anorexia nervosa Anxiety Diverticulosis Dysfunctional uterine bleeding Dyslipidemia Heart palpitations (Acute) HTN (hypertension) (Chronic) HTN (hypertension) Hypercholesterolemia Macular edema Migraine Spinal stenosis (Acute) Spondylolisthesis, acquired (Acute) Surgical History Cataract H/O foot surgery H/O hand surgery History of colposcopy History of dental surgery History of dilation and curettage Previous section (Resolved) S/P tonsillectomy S/P tubal ligation Family History Aunt Breast cancer paternal Uncle Breast cancer maternal Mother Heart disease Hypertension Kidney disease Myocardial infarction Sister Kidney disease Father Lung cancer Social History Preferred Language: Upper Sorbian Communication Ability: Effective 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 and A total of 10 systems reviewed and were otherwise negative Physical Exam Vital Signs Vital Signs - 24 hr 05/29/19 12:19 05/29/19 12:24 05/29/19 14:00 Temperature 36.8 C Temperature Source Oral Pulse Rate 65 61 Pulse Rate [Apical] 64 Pulse Rhythm Regular Pulse Rhythm [Apical] Regular Pulse Strength [Apical] Normal Respiratory Rate 20 16 16 Respiratory Effort / Characteristics Non-Labored Spontaneous Respiratory Depth Normal Respiratory Pattern Regular Blood Pressure 167/99 H Blood Pressure [Right Arm] 136/83 Blood Pressure Mean 121 Blood Pressure Mean [Right Arm] 100 Blood Pressure Position [Right Arm] Pulse Oximetry 100 99 96 Oxygen Delivery Method Room Air Room Air Room Air Sepsis Recent Fever Within 48 Hours No Sepsis Action Taken by Nursing No Action Required 05/29/19 16:00 Temperature Temperature Source Pulse Rate Pulse Rate [Apical] 62 Pulse Rhythm Pulse Rhythm [Apical] Regular Pulse Strength [Apical] Normal Respiratory Rate 16 Respiratory Effort / Characteristics Non-Labored Spontaneous Respiratory Depth Normal Respiratory Pattern Regular Blood Pressure Blood Pressure [Right Arm] 125/75 Blood Pressure Mean Blood Pressure Mean [Right Arm] 91 Blood Pressure Position [Right Arm] Lying Pulse Oximetry 97 Oxygen Delivery Method Room Air Sepsis Recent Fever Within 48 Hours Sepsis Action Taken by Nursing GENERAL: Well appearing, well nourished, NAD, non-toxic. EYE EXAM: Normal conjunctiva. PERRL, no anisocoria and EOM's grossly intact w/o pain. OROPHARYNX: Moist mucous membranes. Grossly normal dentition. NECK: Supple, no nuchal rigidity, no adenopathy, non-tender. No signs of meningismus. LUNGS: Clear to auscultation. Normal chest wall mechanics. HEART: NSR, no MRG. ABDOMEN: Abdomen soft, non-tender, normo-active bowel sounds, no masses, no rebound or guarding. BACK: No CVA TTP. SKIN: No rashes and no bruising. UPPER EXTREMITIES: Upper extremities are grossly normal. LOWER EXTREMITIES: No pitting edema. No calf pain. Negative Nela's sign. NEURO EXAM: A&O x3, cranial nerves II-XII grossly intact, normal speech, moves all 4 extremities on command w/o issue. Course Course 1223: I reviewed the EMR at this time. In October 2018, the patient had a negative stress echo, 97% of MPHR, and an EF of 60-65%. 1235: The patient was evaluated in room A3. A complete history and physical exam was performed. 1237: Orders were placed and the patient was placed on a equipment monitor phototypesetting. 1402: I reevaluated the patient and updated her on the results of her EKG. 1447: I discussed the patient's case with Dr. Butterfield- Cardiology. He would like to do another repeat troponin and order the stress echo at this time. 1532: I reevaluated the patient and updated her on her test results. 1644: I discussed the patient's case with Dr. [facility]. He recommends that since her troponin is positive, to start her on Heparin and admit her. She is getting her echo done now. 1723: I discussed the patient's case with Dr. Chang- [facility]. He will evaluate the patient for further management. 1727: I reevaluated the patient and updated her on her test results. I discussed the treatment plan with her. She verbally agrees and understands. Administered Medications Discontinued Medications Al Hydrox/Mg Hydrox/Simethicone () 1 dose PO ONE ONE Stop: 05/29/19 14:14 Last Admin: 05/29/19 14:42 Dose: 1 dose Documented by: [id number] Aspirin (Aspirin) 324 mg PO NOW STA Stop: 05/29/19 14:14 Last Admin: 05/29/19 14:42 Dose: 324 mg Documented by: [id number] Famotidine (Pepcid) 20 mg PO NOW ONE Stop: 05/29/19 14:14 Last Admin: 05/29/19 14:42 Dose: 20 mg Documented by: [id number] Sodium Chloride (Nss 1000ml) 1,000 mls @ 999 mls/hr IV .Q1H1M JOSE LUIS Stop: 05/29/19 13:30 Last Infusion: 05/29/19 14:07 Dose: 0 mls/hr Documented by: [id number] Admin: 05/29/19 12:59 Dose: 999 mls/hr Documented by: [id number] Critical Care Time Critical Care Time: Yes Total Critical Care Time: 82 I have personally spent 120 minutes of critical care time in the direct management of this patient. This includes bedside care, interpretation of diagnostic studies, and testing, discussion with consultants, patient, and family members, and other required patient management activities. This 120 minutes is in excess of all separately billable procedures. Medical Decision Making Differential Diagnosis Differential diagnoses includes but is not limited to acute coronary syndrome, myocardial infarction, pericarditis, pulmonary embolus, aortic dissection, pneumonia, pneumothorax, musculoskeletal, shingles, esophageal. Medical Records Attestation: I reviewed the patient's medical records. Home Medications Current Medication List: was personally reviewed by me Laboratory Data Attestation: I reviewed the patient's lab results. Result diagrams: 05/29/19 12:34 05/29/19 12:34 Lab Results 05/29/19 05/29/19 05/29/19 Range/Units 12:34 12:34 12:34 WBC 6.27 (4.8-10.8) K/uL RBC 4.69 (4.2-5.4) M/uL Hgb 14.4 (12.0-16.0) g/dL Hct 41.4 (37-47) % MCV 88.3 (80-100) fL MCH 30.7 (25-34) pg MCHC 34.8 (32-36) g/dL RDW Std Deviation 43.6 (36.4-46.3) fL RDW Coeff of Jaymie 13.6 (11.5-14.5) % Plt Count 293 (130-400) K/uL MPV 9.7 (7.4-10.4) fL Immature Gran % (Auto) 0.3 % Neut % (Auto) 54.9 % Lymph % (Auto) 30.3 % Greer % (Auto) 9.9 % Eos % (Auto) 3.5 % Baso % (Auto) 1.1 % Immature Gran # (Auto) 0.02 (0.00-0.02) K/uL Neut # (Auto) 3.44 (1.4-6.5) K/uL Lymph # (Auto) 1.90 (1.2-3.4) K/uL Greer # (Auto) 0.62 H (0.11-0.59) K/uL Eos # (Auto) 0.22 (0-0.5) K/uL Baso # (Auto) 0.07 (0-0.2) K/uL PT 13.0 H (9.0-12.0) Seconds INR 1.3 H (0.9-1.1) APTT 29.3 (21.0-31.0) Seconds PTT Ratio 1.1 Sodium 134 L (136-145) mmol/L Potassium 3.6 (3.5-5.1) mmol/L Chloride 101 (98-107) mmol/L Carbon Dioxide 26 (21-32) mmol/L Anion Gap 8.0 (3-11) BUN 18 (7-18) mg/dl Creatinine 1.02 (0.6-1.2) mg/dl Est Cr Clr Drug Dosing 54.4 ml/min Est GFR ( Amer) 69.7 Est GFR (Non-Af Amer) 60.2 BUN/Creatinine Ratio 17.8 (10-20) Glucose 85 (70-99) mg/dl Calcium 9.8 (8.5-10.1) mg/dl Total Bilirubin 0.6 (0.2-1) mg/dl AST 27 (15-37) U/L ALT 38 (12-78) U/L Alkaline Phosphatase 98 (45-117) U/L Troponin I 0.015 (0-0.045) ng/ml Total Protein 8.3 H (6.4-8.2) gm/dl Albumin 4.1 (3.4-5.0) gm/dl Globulin 4.2 H (2.5-4.0) gm/dl Albumin/Globulin Ratio 1.0 (0.9-2) Lipase 245 (73-393) U/L 05/29/19 05/29/19 Range/Units 13:28 15:55 WBC (4.8-10.8) K/uL RBC (4.2-5.4) M/uL Hgb (12.0-16.0) g/dL Hct (37-47) % MCV (80-100) fL MCH (25-34) pg MCHC (32-36) g/dL RDW Std Deviation (36.4-46.3) fL RDW Coeff of Jaymie (11.5-14.5) % Plt Count (130-400) K/uL MPV (7.4-10.4) fL Immature Gran % (Auto) % Neut % (Auto) % Lymph % (Auto) % Greer % (Auto) % Eos % (Auto) % Baso % (Auto) % Immature Gran # (Auto) (0.00-0.02) K/uL Neut # (Auto) (1.4-6.5) K/uL Lymph # (Auto) (1.2-3.4) K/uL Greer # (Auto) (0.11-0.59) K/uL Eos # (Auto) (0-0.5) K/uL Baso # (Auto) (0-0.2) K/uL PT (9.0-12.0) Seconds INR (0.9-1.1) APTT (21.0-31.0) Seconds PTT Ratio Sodium (136-145) mmol/L Potassium (3.5-5.1) mmol/L Chloride (98-107) mmol/L Carbon Dioxide (21-32) mmol/L Anion Gap (3-11) BUN (7-18) mg/dl Creatinine (0.6-1.2) mg/dl Est Cr Clr Drug Dosing ml/min Est GFR ( Amer) Est GFR (Non-Af Amer) BUN/Creatinine Ratio (10-20) Glucose (70-99) mg/dl Calcium (8.5-10.1) mg/dl Total Bilirubin (0.2-1) mg/dl AST (15-37) U/L ALT (12-78) U/L Alkaline Phosphatase (45-117) U/L Troponin I 0.033 0.047 H* (0-0.045) ng/ml Total Protein (6.4-8.2) gm/dl Albumin (3.4-5.0) gm/dl Globulin (2.5-4.0) gm/dl Albumin/Globulin Ratio (0.9-2) Lipase (73-393) U/L Imaging Data Radiologist's Impression: Radiology results as stated below per my review and the radiologist's interpretation: XR chest 1V portable CLINICAL HISTORY: 58 years-old Female presenting with Chest Pain. TECHNIQUE: Portable upright AP view of the chest was obtained. COMPARISON: 10/25/2018. FINDINGS: Cardiomediastinal silhouette normal. No focal opacity. No large effusion or pneumothorax. Osseous structures normal. Upper abdomen normal. IMPRESSION: 1. No acute cardiopulmonary disease. Electronically signed by: Narciso Dye M.D. 05/29/2019 12:50 PM ECG Data Attestation: I personally reviewed and interpreted this ECG as follows: Indication: + chest pain Rate (beats per minute): 62 Rhythm: + normal sinus ECG [place]: + Normal ECG ST segments: no ST depression and no ST elevation ECG Findings: + Other (normal intervals) Additional Comments: REPEAT EKG: Normal sinus rhythm at a rate of 63. Normal intervals. Normal axis. No acute ischemic changes. Blood Pressure Blood Pressure Findings: Elevated blood pressure Blood Pressure Disposition: further management by hospitalist MDM Narrative The patient is a 58 year old female w/ PMHx anorexia nervosa, anxiety, diverticulosis, dyslipidemia, HTN, hypercholesterolemia, macular edema, spinal stenosis, and tubal ligation who presents to the ED w/ CC of intermittent chest pain starting last night. Patient was seen and evaluated the bedside. The patient was complaining some exertional chest pain left-sided with radiation. No diaphoresis nausea vomiting. The patient is a family history of heart attack with her mother hav ing an SC in her 50s. Patient did have a negative stress echo with a normal EF back in October this past year. Patient did a blood work completed along with an EKG and troponin. EKG is nonischemic. No active chest pain. The patient did have some burning discomfort and a repeat EKG was obtained. No obvious ischemic changes at this time. The patient was given some medications. I did speak the on-call damper fitter who wanted a third troponin and subsequently we discussed a stress test. Stress test was ordered empirically. Patient's was about to go for a stress echo repeat troponin showed that the patient's troponin has continued to rise and is not technically elevated. I did order heparin. I did speak with the on-call hospitalist agreed to further evaluate treat the patient. Patient was subsequently admitted to the medicine service. Observation: Patient has recent CC of chest pain. Observation began at 1223 and was necessary in order to rule out, monitor, reassess and mitigate the risk of the patient, ensure their relative safety, and potentially avoid an admission. Upon re- evaluation, observation revealed that the patient could not be safely discharged at this time after repeat troponins x 3 resulted in elevatd troponin. Heparin was ordered. Patient was admitted to the medicine service 1723. Impression & Plan Non-ST elevation SC (NSTEMI), Chest pain Discharge Plan Visit Data *Final* Discharge Date/Time: 05/29/19 18:09 Chief Complaint: Chest Pain Stated Complaint: SOB CHEST PAIN TINGLING DOWN ARM AND UP NECK ED Provider: Walker Grace Discharge Problem: Non-ST elevation SC (NSTEMI), Chest pain Patient Disposition: Being Evaluated by Hospitalist Discharge Instructions Interventions: ED Discharge Assessment Last Done: 05/29/19 18:09 Discharge Problem: Chest pain Qualifiers: Chest pain type: unspecified Qualified Code(s): R07.9 - Chest pain, unspecified The scribe's documentation has been prepared under my direction and personally reviewed by me in its entirety. I confirm that the note above accurately reflects all work, treatment, procedures, and medical decision making performed by me.
[2019-05-29] MEDS: METOPROLOL TARTRATE 25 MG TAB PO SCH ×2 (19:48→21:39)
[2019-05-29] MEDS: NITROGLYCERIN 2% OINTMENT 30GM TUBE EXT SCH (19:48)
[2019-05-29] MEDS: VITAMIN B COMPLEX TAB PO SCH (19:48)
[2019-05-29] MEDS: CALCIUM 600MG + VIT D 400 IU TAB PO SCH (19:48)
[2019-05-29] MEDS: TOCOPHERYL, DL-ALPHA 400 UNITS CAP PO SCH (19:48)
[2019-05-30 01:45] LABS: Hematocrit (blood only) 36.9 % (37-47); Hemoglobin 12.9 g/dL (12.0-16.0); Mean Corpuscular Hemoglobin 30.5 pg (25-34); Mean Corpuscular Volume 87.2 fL (80-100); Mean Platelet Volume 9.3 fL (7.4-10.4); Platelet Count 254 K/uL (130-400); RDW Coefficient of Variation 13.5 % (11.5-14.5); RDW Standard Deviation 43.3 fL (36.4-46.3); Red Blood Count 4.23 M/uL (4.2-5.4); White Blood Count 5.63 K/uL (4.8-10.8)
[2019-05-30 02:03] LABS: BUN Creatinine Ratio 15.9 (10-20); Calcium 9.4 mg/dl (8.5-10.1); Creatinine Clr Calc Pharmacy 61.4 ml/min; Est GFR (African American) 69.2; Est GFR (Non-African American) 59.7; Magnesium 2.1 mg/dl (1.8-2.4); Potassium 3.5 mmol/L (3.5-5.1)
[2019-05-30 02:08] LABS: Partial Thromboplastin Ratio 3.8
[2019-05-30 02:09] LABS: Troponin I 0.291 ng/ml (0-0.045)
[2019-05-30 02:13] LABS: Partial Thromboplastin Time 103.9 Seconds (21.0-31.0)
[2019-05-30] MEDS: NITROGLYCERIN 2% OINTMENT 30GM TUBE EXT SCH ×2 (02:24→09:07)
[2019-05-30] MEDS: MoRPHine SULFATE 2 MG/ML CARP IV PRN ×2 (02:50→04:12)
[2019-05-30] MEDS ORDERED: CLOPIDOGREL BISULFATE 300 MG TAB PO STA (04:34)
[2019-05-30] MEDS ORDERED: NITROGLYCERIN/D5W 100MCG/ML 250 ML IV SCH (04:39)
[2019-05-30] MEDS ORDERED: CLOPIDOGREL BISULFATE 300 MG TAB ONE ×2 (04:40→09:30)
--- NOTE | 2019-05-30 05:19 | Critical Care Consultation ---
Date of Consultation May 30, 2019 Assessment & Plan (1) ACS (acute coronary syndrome): Reason Critically Ill: 59-year-old female being treated for an STEMI with ACS, scheduled to undergo cardiac cath this morning. Neuro - [facility] ICU: Negative Cardiac - N STEMI/ACSpatient undergo cardiac catheterization first case this morning -EKG unchanged this a.m., troponin slightly more elevated -Cardiology following and recommended 300 mg Plavix and nitro drip for ongoing chest pain in addition to heparin drip -Continue ASA and MTP -LDL and cholesterol elevated on lipid panel this a.m., consider statin and lifestyle modifications -Follow cardiology recommendations -Continue to monitor on telemetry Respiratory - Patient stable on room air, monitor GI - N.p.o., will advance to cardiac diet when appropriate RENAL/LYTES - Maximize electrolytes, creatinine stable, monitor with routine BMPs and replete electrolytes as necessary - Strict I's and O's ENDO - No history DM or thyroid disease ICU hyperglycemic protocol HEME - H&H stable, monitor routine CBCs ID - No indication for infectious process at this time LINES/IV ACCESS - Peripheral IVs DVT PROPHYLAXIS - On heparin drip I have personally spent 35 minutes of critical care time in the direct management of this patient. This is a life/limb threatening event. This includes time spent evaluating patient, direct bedside care, chart review, placing orders, interpretation of diagnostic studies, discussion with consultants, patient, and family members, as well as other required patient management activities. This time is exclusive of all separately billable procedures, and teaching time and separate from and in addition to any other critical care service time. Thank you for allowing us to participate in the care of this patient. Please refer to my attending physician's documentation for any further recommendations. (2) Anxiety: (3) Non-ST elevation DC (NSTEMI): (4) Dyslipidemia: (5) HTN (hypertension): Supervising Physician Co-Signing Physician Notes I have personally evaluated and examined this patient. I agree with assessment and plan of Jordan ROACH. I was advised the patient by telephone. I discussed the case with Willie Burgos prior to cardiac cath. History of Present Illness Attending Physician: Michael Chang MD History of Present Illness Ms. Starr is a 59-year-old female with past medical history of HTN, hypercholesterolemia, dyslipidemia, diverticulosis, tubal ligation, and anxiety who initially presented yesterday to the emergency department for ongoing chest discomfort with intermittent jaw pain, which was worsened with activity. She was admitted to telemetry and being treated for NSTEMI was placed on heparin drip, with plans to take to cardiac cath today. During the night the patient had an increase in substernal chest pain with radiation to the right shoulder rated 8 out of 10. She was started on nitro drip and given morphine with significant relief of symptoms. Her EKG did not show any ST elevation. There was moderate elevation of troponin. Dr. Schwab was contacted by the hospitalist, patient was bumped to first case for [employer] this morning and given 300 of Plavix. Patient was then transferred to ICU for further management of vasoactive medications. On arrival to the ICU the patient is calm and cooperative. She denies headache, dizziness, syncope, palpitations, shortness of breath, labored breathing, abdominal pain, nausea or vomiting. Patient does report mild substernal chest pain 07/18. Allergies Allergy/AdvReac Type Severity Reaction Status Date / Time iodine Allergy Intermediate rash Verified 05/29/19 13:51 adhesive Allergy Mild SKIN Verified 05/29/19 13:51 IRRITATION Home Medications Home Medications Medication Instructions Recorded Confirmed Type Premarin 1 dose VAGINAL 2XWK 10/25/18 05/29/19 History mupirocin 1 applic TOPICAL BID PRN 10/25/18 05/29/19 History calcium carb-magnesium oxide-vit 1 tab PO BID tab 04/01/19 05/29/19 History D3 400 mg-167 mg-133 unit tablet coenzyme Q10 100 mg capsule 100 mg PO QAM cap 04/01/19 05/29/19 History vitamin A 8,000 unit capsule 8,000 unit PO QAM cap 04/01/19 05/29/19 History vitamin B complex 1 cap PO QPM 04/01/19 05/29/19 History vitamin E (dl, acetate) 400 unit 400 units PO HS 04/01/19 05/29/19 History capsule Vitamin D Drops 1 drp PO DAILY 05/29/19 05/29/19 History ascorbic cgac-[id number]-dex 1,000 mg PO QAM 05/29/19 05/29/19 History [Emergen-C] Patient History Medical History Anorexia nervosa Anxiety Diverticulosis Dysfunctional uterine bleeding Dyslipidemia Heart palpitations (Acute) HTN (hypertension) (Chronic) HTN (hypertension) Hypercholesterolemia Macular edema Migraine Spinal stenosis (Acute) Spondylolisthesis, acquired (Acute) Surgical History Cataract H/O foot surgery H/O hand surgery History of colposcopy History of dental surgery History of dilation and curettage Previous section (Resolved) S/P tonsillectomy S/P tubal ligation Family History Aunt Breast cancer paternal Uncle Breast cancer maternal Mother Heart disease Hypertension Kidney disease Myocardial infarction Sister Kidney disease Father Lung cancer Social History Preferred Language: Sierra Leonean Communication Ability: Effective Metal Riveter Required: No Beliefs That Will Affect Care: None marital status: Current Living Situation: Spouse Current Living Situation Comment: Van Walter (Son) Feels Safe at Home: Yes Smoking Status: Former smoker Hx Alcohol Use: Yes Alcohol type: wine Alcohol Intake Frequency: Holidays/Special Occasions Hx Substance Use: No Dental Care, Regularly: Yes Review of Systems Review of Systems: All systems reviewed & are unremarkable except as noted in HPI & below Physical Exam Constitutional: cooperative and comfortable Eyes: PERRL, conjunctivae normal, anicteric sclerae ENMT: external ear and nose normal, oropharynx normal Neck: trachea midline, no thyromegaly Respiratory: normal respiratory effort, lungs clear to auscultation Cardiovascular: RRR, no murmur, no edema Rate/Rhythm: regular rate and regular rhythm Heart Sounds: normal S1 and normal S2 Vessels: no JVD Extremities: normal capillary refill; no pedal edema Gastrointestinal (Abdomen): normal bowel sounds, soft, nontender, no hepatosplenomegaly Musculoskeletal: no cyanosis or clubbing, extremities motor strength 5/5 Skin: no rashes, warm and dry Neurologic: PERRL, EOMI, accommodation nl, no face palsy, no dysarthria Psychiatric: A+Ox3, euthymic affect Results & Data Vital Signs (Past 12 Hours) Vital Signs Temp Pulse Resp BP Pulse Ox 05/30/19 02:20 36.9 C 64 18 126/70 98 05/29/19 23:50 36.5 C 64 20 119/65 96 05/29/19 19:30 36.8 C 71 18 123/78 97 05/29/19 18:26 37.0 C 68 16 168/84 H 98 05/29/19 17:31 66 18 168/94 H 98 Laboratory Results Laboratory Results - last 24 hr 05/29/19 05/29/19 05/29/19 12:34 12:34 12:34 WBC 6.27 RBC 4.69 Hgb 14.4 Hct 41.4 MCV 88.3 MCH 30.7 MCHC 34.8 RDW Std Deviation 43.6 RDW Coeff of Jaymie 13.6 Plt Count 293 MPV 9.7 Immature Gran % (Auto) 0.3 Neut % (Auto) 54.9 Lymph % (Auto) 30.3 [place] % (Auto) 9.9 Eos % (Auto) 3.5 Baso % (Auto) 1.1 Immature Gran # (Auto) 0.02 Neut # (Auto) 3.44 Lymph # (Auto) 1.90 [place] # (Auto) 0.62 H Eos # (Auto) 0.22 Baso # (Auto) 0.07 PT 13.0 H INR 1.3 H APTT 29.3 PTT Ratio 1.1 Sodium 134 L Potassium 3.6 Chloride 101 Carbon Dioxide 26 Anion Gap 8.0 BUN 18 Creatinine 1.02 Est Cr Clr Drug Dosing 54.4 Est GFR ( Amer) 69.7 Est GFR (Non-Af Amer) 60.2 BUN/Creatinine Ratio 17.8 Glucose 85 Calcium 9.8 Magnesium Total Bilirubin 0.6 AST 27 ALT 38 Alkaline Phosphatase 98 Troponin I 0.015 Total Protein 8.3 H Albumin 4.1 Globulin 4.2 H Albumin/Globulin Ratio 1.0 Triglycerides Cholesterol LDL Cholesterol, Calc VLDL Cholesterol, Calc HDL Cholesterol Cholesterol/HDL Ratio Lipase 245 Nasal Screen MRSA (PCR) 05/29/19 05/29/19 05/30/19 13:28 15:55 01:32 WBC 5.63 RBC 4.23 Hgb 12.9 Hct 36.9 L MCV 87.2 MCH 30.5 MCHC 35.0 RDW Std Deviation 43.3 RDW Coeff of Jaymie 13.5 Plt Count 254 MPV 9.3 Immature Gran % (Auto) Neut % (Auto) Lymph % (Auto) [place] % (Auto) Eos % (Auto) Baso % (Auto) Immature Gran # (Auto) Neut # (Auto) Lymph # (Auto) [place] # (Auto) Eos # (Auto) Baso # (Auto) PT INR APTT PTT Ratio Sodium Potassium Chloride Carbon Dioxide Anion Gap BUN Creatinine Est Cr Clr Drug Dosing Est GFR ( Amer) Est GFR (Non-Af Amer) BUN/Creatinine Ratio Glucose Calcium Magnesium Total Bilirubin AST ALT Alkaline Phosphatase Troponin I 0.033 0.047 H* Total Protein Albumin Globulin Albumin/Globulin Ratio Triglycerides Cholesterol LDL Cholesterol, Calc VLDL Cholesterol, Calc HDL Cholesterol Cholesterol/HDL Ratio Lipase Nasal Screen MRSA (PCR) 05/30/19 05/30/19 05/30/19 01:32 01:32 04:54 WBC RBC Hgb Hct MCV MCH MCHC RDW Std Deviation RDW Coeff of Jaymie Plt Count MPV Immature Gran % (Auto) Neut % (Auto) Lymph % (Auto) [place] % (Auto) Eos % (Auto) Baso % (Auto) Immature Gran # (Auto) Neut # (Auto) Lymph # (Auto) [place] # (Auto) Eos # (Auto) Baso # (Auto) PT INR APTT 103.9 H* PTT Ratio 3.8 Sodium 139 Potassium 3.5 Chloride 108 H Carbon Dioxide 26 Anion Gap 5.0 BUN 16 Creatinine 1.02 Est Cr Clr Drug Dosing 61.4 Est GFR ( Amer) 69.2 Est GFR (Non-Af Amer) 59.7 BUN/Creatinine Ratio 15.9 Glucose 96 Calcium 9.4 Magnesium 2.1 Total Bilirubin AST ALT Alkaline Phosphatase Troponin I 0.291 H* Total Protein Albumin Globulin Albumin/Globulin Ratio Triglycerides 50 Cholesterol 219 H LDL Cholesterol, Calc 132 VLDL Cholesterol, Calc 10 HDL Cholesterol 77 Cholesterol/HDL Ratio 3 Lipase Nasal Screen MRSA (PCR) Pending Medications Administered Home Medications Premarin 1 dose VAGINAL 2XWK 10/25/18 [History Confirmed 05/29/19] mupirocin 1 applic TOPICAL BID PRN 10/25/18 [History Confirmed 05/29/19] calcium carb-magnesium oxide-vit D3 400 mg-167 mg-133 unit tablet 1 tab PO BID tab 04/01/19 [History Confirmed 05/29/19] coenzyme Q10 100 mg capsule 100 mg PO QAM cap 04/01/19 [History Confirmed 05/29/19] vitamin A 8,000 unit capsule 8,000 unit PO QAM cap 04/01/19 [History Confirmed 05/29/19] vitamin B complex 1 cap PO QPM 04/01/19 [History Confirmed 05/29/19] vitamin E (dl, acetate) 400 unit capsule 400 units PO HS 04/01/19 [History Confirmed 05/29/19] Vitamin D Drops 1 drp PO DAILY 05/29/19 [History Confirmed 05/29/19] ascorbic [id number]-[id number] [Emergen-C] 1,000 mg PO QAM 05/29/19 [History Confirmed 05/29/19] Active Medications Acetaminophen (Tylenol) 650 mg PO Q4H PRN PRN Reason: Pain or Fever Stop: 06/28/19 18:22 Al Hydrox/Mg Hydrox/Simethicone (Maalox) 15 ml PO Q4H PRN PRN Reason: Dyspepsia Stop: 06/28/19 18:22 Ascorbic Acid (Vitamin C) 1,000 mg PO QAM JOSE LUIS Stop: 06/29/19 08:59 Aspirin (Ecotrin Ectab) 81 mg PO QAM JOSE LUIS Stop: 06/29/19 08:59 Heparin Sodium/Dextrose (Heparin Sodium/Dextrose) 25,000 units in 500 mls @ 19 mls/hr IV .Q24H JOSE LUIS; Protocol Stop: 06/28/19 18:29 Last Titration: 05/30/19 03:20 Dose: 950 units/hr, 19 mls/hr Documented by: Nitroglycerin/Dextrose (Nitroglycerin/D5w 100 Mcg/Ml) 250 mls @ 6 mls/hr IV .Q24H JOSE LUIS; Protocol Stop: 06/29/19 04:38 Potassium Chloride (K Marlon / Wtr) 10 meq in 100 mls @ 100 mls/hr IV Q1H JOSE LUIS Stop: 05/30/19 07:44 Lorazepam (Ativan) 1 mg PO BID PRN PRN Reason: Anxiety Stop: 06/28/19 18:22 Magnesium Hydroxide (Milk Of Magnesia) 30 ml PO Q12H PRN PRN Reason: Constipation Stop: 06/28/19 18:22 Metoprolol Tartrate (Lopressor) 12.5 mg PO BID JOSE LUIS Stop: 06/28/19 20:59 Last Admin: 05/29/19 21:39 Dose: Not Given Documented by: Miscellaneous (Icu Protocol For Hyperglycemia) 1 ea N/A PRN PRN; Protocol PRN Reason: Hyperglycemia Protocol Stop: 06/01/19 05:28 Morphine Sulfate (Morphine Sulfate) 2 mg IV Q30M PRN PRN Reason: Chest Pain Stop: 06/12/19 18:22 Last Admin: 05/30/19 04:12 Dose: 2 mg Documented by: Multivitamins/Minerals (Caltrate Plus) 1 tab PO BID JOSE LUIS Stop: 06/28/19 20:59 Last Admin: 05/29/19 19:48 Dose: 1 tab Documented by: Mupirocin (Bactroban 2%) 1 appln EXT BID PRN PRN Reason: eczema Stop: 06/28/19 18:22 Nitroglycerin (Nitrostat) 0.4 mg SL UD PRN PRN Reason: Chest Pain Stop: 06/28/19 18:22 Nitroglycerin (Nitro-Bid 2%) 1 inch EXT Q6H JOSE LUIS Stop: 06/28/19 19:59 Last Admin: 05/30/19 02:24 Dose: 1 inch Documented by: Ondansetron HCl (Zofran) 4 mg IV Q6H PRN PRN Reason: Nausea Stop: 06/28/19 18:22 Polyethylene Glycol (Miralax Powder Packet) 17 gm PO DAILY PRN PRN Reason: Constipation Stop: 06/28/19 18:22 Vitamin B Complex (Vitamin B Complex) 1 tab PO QPM JOSE LUIS Stop: 06/28/19 20:59 Last Admin: 05/29/19 19:48 Dose: 1 tab Documented by: Vitamin E (Vitamin E) 400 units PO HS JOSE LUIS Stop: 06/28/19 20:59 Last Admin: 05/29/19 19:48 Dose: 400 units Documented by: Zolpidem Tartrate (Ambien) 5 mg PO HS PRN PRN Reason: Sleep Stop: 06/28/19 18:22 Coding Level of Care Code New Pt Critical Care 1st 30-74 mins Patient Type New Diagnoses ACS (acute coronary syndrome) I24.9 Anxiety F41.9 Non-ST elevation DC (NSTEMI) I21.4 Dyslipidemia E78.5 HTN (hypertension) I10
[2019-05-30] MEDS ORDERED: ICU PROTOCOL FOR HYPERGLYCEMIA PRN (05:29)
[2019-05-30] MEDS: POTASSIUM CHLORIDE / WTR 10 MEQ/100 ML PLCT IV SCH ×2 (05:48→07:33)
--- NOTE | 2019-05-30 07:33 | Progress Note ---
Date of Service May 30, 2019 Subjective Called by RN around 2am in reference to patient having persistent chest pain despite nitropaste Repeat EKG ordered and order for morphine 2mg IV x 1 placed EKG unchanged in the setting of uptrending troponin of 0.29 Called around 4am again in reference to patients pain returning and worsening - now radiating to L arm and 6/10 Patient evaluated - pt reported cramping like chest pain L sided radiating to L arm, also involved L shoulder region 12/16. Pt denied tearing-like chest pain Vitals were stable Exam: RRR, no m/r/g; CTAB equal breath sounds bilaterally, equal and 2+ radial pulses, femoral pulses and DP pulses 2nd morphine 2mg IV dose provided - improved pain to 2/10 and pain was no longer radiating to L arm. Patient appeared more comfortable Parole Agent Dr. Ruiz consulted in the setting of pain still being symptomatic Recommended plavix 300mg x 1 and nitro drip starting at 10mcg and uptitrating until chest pain relieved Needed to transfer pt to ICU for drip - spoke to OUTDOOR LANDSCAPE ARCHITECT, Terence and signed out pt Also recommended calling slab grinder at [phone] around 6:30 to ensure patient is first case of the day - slab grinder was called and RN acknowledged request Results & Data Vital Signs (Past 12 Hours) Vital Signs Temp Pulse Resp BP Pulse Ox 05/30/19 06:47 62 16 128/81 100 05/30/19 06:31 69 18 135/83 99 05/30/19 06:15 68 16 137/86 98 05/30/19 06:00 58 L 16 119/76 100 05/30/19 05:50 58 L 18 136/85 100 05/30/19 05:30 61 20 145/82 H 99 05/30/19 05:10 58 L 16 145/83 H 100 05/30/19 04:55 67 20 129/90 99 05/30/19 02:20 36.9 C 64 18 126/70 98 05/29/19 23:50 36.5 C 64 20 119/65 96 05/29/19 19:30 36.8 C 71 18 123/78 97 PG Care Time/CCT Total # of Minutes Spent Total Time Spent with Patient: Total time spent is greater than 50% in coordination of care (as documented) at patient's floor/unit and/or counseling patient: Resident Activity Tracking Resident Involvement: Resident Care Provided Care Provided: Adult [facility] Medicine
[2019-05-30] MEDS ORDERED: MIDAZOLAM HCL 1 MG/ML 2ML VIAL ONE ×2 (08:07→09:16)
[2019-05-30] MEDS ORDERED: fentaNYL citrate 100 MCG/2 ML VIAL ONE (08:07)
[2019-05-30] MEDS ORDERED: HEPARIN (PORCINE) 1000 UNIT/ML 10 ML (CATH LAB USE ONLY) ONE ×2 (08:07→09:07)
[2019-05-30] MEDS ORDERED: NiCARDipine HCL INJ 2.5 MG/ML 10 ML AMP ONE (08:07)
[2019-05-30] MEDS ORDERED: NITROGLYCERIN/D5W 100MCG/ML 20ML SYR ONE (08:08)
[2019-05-30] MEDS ORDERED: methylPREDNISolone 40 MG in SYRINGE 0 ML IV STA (08:18)
[2019-05-30] MEDS ORDERED: FAMOTIDINE 20 MG in SYRINGE 3 ML IV ONE (08:18)
[2019-05-30] MEDS ORDERED: DiphenhydrAMINE HCL 50 MG/ML VIAL IV ONE ×2 (08:18→14:05)
--- NOTE | 2019-05-30 08:22 | Pre Anesthesia Assessment ---
Date of Service May 30, 2019 Pre Sedation Assessment Vital Signs Temp Pulse Pulse Resp BP BP Pulse Ox 05/30/19 06:47 62 16 128/81 100 05/30/19 06:31 69 18 135/83 99 05/30/19 06:15 68 16 137/86 98 05/30/19 06:00 58 L 16 119/76 100 05/30/19 05:50 58 L 18 136/85 100 05/30/19 05:30 61 20 145/82 H 99 05/30/19 05:10 58 L 16 145/83 H 100 05/30/19 04:55 67 20 129/90 99 05/30/19 02:20 36.9 C 64 18 126/70 98 05/29/19 23:50 36.5 C 64 20 119/65 96 05/29/19 19:30 36.8 C 71 18 123/78 97 05/29/19 18:26 37.0 C 68 16 168/84 H 98 05/29/19 17:31 66 18 168/94 H 98 05/29/19 16:00 62 16 125/75 97 05/29/19 14:00 64 16 136/83 96 05/29/19 12:24 61 16 99 05/29/19 12:19 36.8 C 65 20 167/99 H 100 Cardiovascular + regular rate Respiratory + respiratory effort normal Pre-Sedation Airway Assessment Smoking Status: Former smoker Hx Sleep Apnea: No Hx Difficult Intubation: No Short, Thick Neck: No Thyromental Distance: > or= 3.5 Finger Breadths Oral Cavity: + WNL Mallampati Class: III ASA: ASA3 Procedure Planning Contraindications for Sedation: none Current Medications Reviewed: Yes Notes The planned sedation has been discussed with the patient. Informed Consent was obtained. I have identified the patient, determined the appropriateness of s edation and have assessed the patient immediately prior to the procedure. All medicine(s) and interventions are by my order.
[2019-05-30] MEDS ORDERED: methylPREDNISolone 125 MG/2 ML VIAL ONE (08:36)
[2019-05-30] MEDS ORDERED: raNITIdine HCl 25 MG/ML VIAL IV ONE (08:37)
[2019-05-30] MEDS ORDERED: NON-FORMULARY MEDICATION (Coenzyme Q10 100 MG) PO SCH (09:00)
[2019-05-30] MEDS ORDERED: NON-FORMULARY MEDICATION (Vitamin A 8,000 UNITS) PO SCH (09:00)
[2019-05-30] MEDS ORDERED: VITAMIN D PO SCH (09:00)
--- NOTE | 2019-05-30 09:11 | Post Operative Brief Note ---
Cardiology Brief Post Op Date of Surgery May 30, 2019 Pre & Post Diagnosis Operation Date: 05/30/19 12:00 <No data on this case meets the specified criteria> Procedure LHC, coronaries Perch Machine Inspector Osmin Iniguez MD First Crusher none Estimated Blood Loss 10 Findings See Below Normal LM, LAD and LCX Right dominant coronary system 99% mid RCA lesion Complications none Disposition Accompanied Patient To Recovery: No Disposition: PCU Overlapping Procedure I was immediately available: during the entire case.
--- NOTE | 2019-05-30 10:47 | Post Anesthesia Assessment ---
Date of Service May 30, 2019 Post Sedation Assessment Vital Signs Temp Pulse Pulse Resp BP BP Pulse Ox 05/30/19 10:40 67 66 16 117/72 95 05/30/19 10:25 63 62 16 115/66 95 05/30/19 10:10 63 63 16 118/77 94 05/30/19 09:55 64 64 16 120/73 94 05/30/19 09:50 64 64 16 120/71 94 05/30/19 09:45 68 66 16 124/72 94 05/30/19 09:40 66 67 16 130/75 95 05/30/19 08:16 74 30 H 108/73 100 05/30/19 08:15 67 22 100 05/30/19 08:00 67 16 108/67 100 05/30/19 07:45 98.2 F 61 16 109/65 99 05/30/19 07:31 69 17 132/57 L 98 05/30/19 07:00 65 15 131/80 96 05/30/19 06:47 62 16 128/81 100 05/30/19 06:31 69 18 135/83 99 05/30/19 06:15 68 16 137/86 98 05/30/19 06:00 58 L 16 119/76 100 05/30/19 05:50 58 L 18 136/85 100 05/30/19 05:30 61 20 145/82 H 99 05/30/19 05:10 58 L 16 145/83 H 100 05/30/19 04:55 67 20 129/90 99 05/30/19 02:20 98.4 F 64 18 126/70 98 05/29/19 23:50 97.7 F 64 20 119/65 96 05/29/19 19:30 98.3 F 71 18 123/78 97 05/29/19 18:26 98.6 F 68 16 168/84 H 98 05/29/19 17:31 66 18 168/94 H 98 05/29/19 16:00 62 16 125/75 97 05/29/19 14:00 64 16 136/83 96 05/29/19 12:24 61 16 99 05/29/19 12:19 98.2 F 65 20 167/99 H 100 Recovery Score Activity: Moves 4 extremities Respiration: Deep Breath/Cough Circulation: +/-20% PreAnes Value Consciousness: Fully Awake Oxygen Saturation: > 92% On Room Air Post Anesthesia Score: 10 Discharge Sedation Level of Care: Fast Track Phase II Post Sedation Plan On clinical assessment, the patient appears to have tolerated the sedation without complications. Patient is recovering as anticipated. Patient will continue to be monitored by nursing and may be discharged when sedation discharge criteria are met per below protocol. Upon Completions of procedure up to 15 minutes continue every 5 minute vital signs and the P.A.R. score; then discharge to a Phase I or Fast Track to Phase II per the following guidelines: * Discharge Patient to appropriate Phase II area if PAR is 8 or greater or return to pre- procedure baseline. The post - procedure orders will be as directed. * If PAR score is less than 8 or not return to pre-procedure baseline then patient will follow Phase I monitoring till PAR is reached for Phase II. The Phase I may be done in procedure room or may call to secure a Phase I area. * If naloxone or flumazenil are used for reversal, hold in Phase I for continued monitoring from when last reversal dose was given for a minimum of 60 minutes or longer pending the nurse and/or physician discretion of patient condition before discharge to Phase II. Please call the Sedation Physician to re-evaluate and complete post-note for discharge to Phase II area. Do NOT discharge from procedure sedation or Phase 1 until post- sedation evaluation note is complete by procedure /sedation MD Sedation Discharge Instructions to be given to the patient at discharge to home.
--- NOTE | 2019-05-30 10:54 | Cardiac Catheterization ---
ACC Data: Clarifier Operator Cardiac Status Clinical evaluation leading to the procedure CAD Presenation: Non STEMI Anginal Classification: CCS IV Heart Failure: No Cardiogenic Shock within 24 Hours: No Cardiac Arrest within 24 Hours: No Imaging Studies Past 6 Months: No Stress Studies Past 6 Months: No Diagnostic Physicians Name: Osmin Burgos MD Status: Urgent Closure Device Percutaneous Entry Location: Radial Closure Device: Radial Band Recommendations: PCI without planned CABG PCI Indication: PCI for high risk Non-GUERLINE Lesion Segment Name: Mid RCA Culprit Artery: Yes Stenosis Prior to Rx (%): 95 Chronic Total Occlusion: No IVUS: No FFR: No Pre-Procedure FANY Flow: 3 Previously Treated Lesion: No Lesion Complexity: Non-High/Non-C Lesion Length (mm): 12 Thrombus Present: Yes Bifurcation Lesion: No Guidewire Across Lesion: Stenosis Post-Procedure (%): 0 Post-Procedure FANY Flow: 3 Devices(s) Deployed: Yes Yes Intraprocedure Events Significant Disection: No Perforation: No Cardiac Cath Procedure Full Procedure Date May 30, 2019 Pre-Procedure Diagnosis Pre-Procedure Diagnosis: Non STEMI AUC Score AUC Score: 8 Post-Procedure Diagnosis Post-Procedure Diagnosis: Severe CAD and Successful PCI Procedure(s) Performed Procedure(s) Performed: Coronary Angiography, Left Heart Cath and Drug Eluting Stent Finish Sander Osmin Burgos MD Wool Sorter(s) Odell Estimated Blood Loss Estimated Blood Loss: 10 Medication(s) Medication(s): Fentanyl, Heparin, Lidocaine 1%, Nicardipine, Nitroglycerin and Versed Summary of Findings Indication: High risk NSTEMI Access: 6 Fr right radial artery Catheters: JR4 guide Findings: For full details of patient's coronary angiography please cath report dictated by Dr. Iniguez. Briefly, patient found to have severe single vessel disease with a 95% focal mid RCA lesion Decision to proceed with PCI. -- PCI -- Antithrombotic therapy: Heparin, clopidogrel Procedure: RCA cannulated with JR4 guide BMW wire passed across lesion into distal vessel Mid RCA lesion predilated with 2.5 compliant balloon Dilated lesion stented with 4.0 x 15 mm [place] drug-eluting stent Stent post-dilated with 4.0 noncompliant balloon IC vasodilators administered for spasm Post procedure FANY 3 flow, stent well expanded with minimal residual stenosis and no apparent cardiac complications. Arterial Closure: TR band Summary: 1. Successful PCI of mid RCA with single drug-eluting stent (4.0 x 15 mm [place]). Recommendations: To PCU for continued monitoring Reloaded with clopidogrel 300 mg in laborer [place] Continue dual-antiplatelet therapy for at least one year Continue statin, and ASCVD risk factor modification Consult cardiac Rehab Recommendations Recommendations: PCI without planned CABG Specimens Specimens: None Drains Drains: None Anesthesia Moderate Procedural Complication(s) None Disposition PCU I attest to the content of the Intraoperative Record and any orders documented therein. Any exceptions are noted below.
[2019-05-30] MEDS ORDERED: SODIUM CHLORIDE 0.9% 1000ML 1,000 ML IV SCH (11:00)
--- NOTE | 2019-05-30 12:46 | Hospitalist Progress Note ---
Date of Service May 30, 2019 Assessment & Plan (1) Non-ST elevation [place] (NSTEMI): 59 yo F no PMHx here for chest pain and found to have NSTEMI. Following catheterization with dysarthria but without findings on CTH. Followed by ICU at this time. NSTEMI s/p CLARISA RCA 05/30/19 - Had cardiac catheterization this AM which showed 99% occlusion of the RCA for which a drug eluting stent was placed. - Patient is now chest pain free post-catheterization. Received Plavix load 300mg. - Cards rec's: Continue dual-antiplatelet therapy for at least one year, Continue statin, and ASCVD risk factor modification. - Now on metoprolol 12.5mg PO BID, lisinopril 5mg PO daily, Plavix 75mg PO daily, atorvastatin 40mg PO daily, asa 81 PO daily. Dysarthria / Slurred Speech due to ?TIA vs. Atypical Migraine - Pt had stat CTH due to dysarthria following cardiac catheterization which was negative for intracranial pathology. - Pt's dysarthria had improved by the time CT head was completed; and pt now with classic symptoms of migraine headache (photophobia, phonophobia, N/V). - Treated with compazine and benadryl, will reevaluate. Code Status: FULL CODE Diet: Heart Healthy DVT ppx: Heparin Dispo: ICU (2) Dysarthria: (3) Migraine: Supervising Physician Co-Signing Physician Notes Resident Physician Supervision Note: I independently interviewed and examined the patient and verified the spencer history and physical, reviewed labs and image studies, discussed the case with the resident Dr. Childs and agree with the findings and care plan. Subjective Pt with continued chest pain early this AM despite nitropaste; given morphine and had catheterization this AM showing 99% occlusion of the RCA for whic kim drug-eluting stent was placed. Reports that now she is without chest pain, but has some headache and feels that her speech is slurred and she is having difficulty "finding her words". Family in the room reports this is unusual for her. Did receive lorazepam, fentanyl, and morphine this AM none of which she is used to taking. No weakness of limbs or face. No dizziness. No changes in vision. Review of Systems Constitutional: no fever, no chills and no weakness Respiratory: no cough, no dyspnea and no wheezing Cardiovascular: no chest pain, no palpitations and no edema Gastrointestinal: no abdominal pain, no nausea and no vomiting Neurologic: + headache(s) and + abnormal speech; no localized weakness, no loss of sensation and no tingling Physical Exam Constitutional: WD/WN, vitals as above Respiratory: normal respiratory effort, lungs clear to auscultation Cardiovascular: RRR, no murmur, no edema Gastrointestinal (Abdomen): normal bowel sounds, soft, nontender, no hepatosplenomegaly Skin: no rashes, warm and dry Neurologic: CN's II-XI intact bilaterally and plantar reflexes intact bilaterally; no focal motor deficits Speech / Cognition: + abnormal speech Motor/Sensory: no tremor sensation intact on face, upper and lower extremities Psychiatric: A+Ox3, euthymic affect Results & Data Vital Signs (Past 12 Hours) Vital Signs Temp Pulse Pulse Resp BP BP BP 05/30/19 12:00 69 15 128/80 05/30/19 11:30 70 16 128/81 05/30/19 11:00 36.8 C 77 77 18 119/77 05/30/19 10:52 67 71 16 124/68 05/30/19 10:40 67 66 16 117/72 05/30/19 10:25 63 62 16 115/66 05/30/19 10:10 63 63 16 118/77 05/30/19 09:55 64 64 16 120/73 05/30/19 09:50 64 64 16 120/71 05/30/19 09:45 68 66 16 124/72 05/30/19 09:40 66 67 16 130/75 05/30/19 08:16 74 30 H 108/73 05/30/19 08:15 67 22 05/30/19 08:00 67 16 108/67 05/30/19 07:45 36.8 C 61 16 109/65 05/30/19 07:31 69 17 132/57 L 05/30/19 07:00 65 15 131/80 05/30/19 06:47 62 16 128/81 05/30/19 06:31 69 18 135/83 05/30/19 06:15 68 16 137/86 05/30/19 06:00 58 L 16 119/76 05/30/19 05:50 58 L 18 136/85 05/30/19 05:30 61 20 145/82 H 05/30/19 05:10 58 L 16 145/83 H 05/30/19 04:55 67 20 129/90 05/30/19 02:20 36.9 C 64 18 126/70 Pulse Ox 05/30/19 12:00 95 05/30/19 11:30 96 05/30/19 11:00 97 05/30/19 10:52 95 05/30/19 10:40 95 05/30/19 10:25 95 05/30/19 10:10 94 05/30/19 09:55 94 05/30/19 09:50 94 05/30/19 09:45 94 05/30/19 09:40 95 05/30/19 08:16 100 05/30/19 08:15 100 05/30/19 08:00 100 05/30/19 07:45 99 05/30/19 07:31 98 05/30/19 07:00 96 05/30/19 06:47 100 05/30/19 06:31 99 05/30/19 06:15 98 05/30/19 06:00 100 05/30/19 05:50 100 05/30/19 05:30 99 05/30/19 05:10 100 05/30/19 04:55 99 05/30/19 02:20 98 Resident Activity Tracking Resident Involvement: Resident Care Provided Care Provided: Adult Hospital Medicine
--- NOTE | 2019-05-30 12:54 | Cardiac Catheterization ---
ACC Data: Sheet Rock Installer Cardiac Status Clinical evaluation leading to the procedure CAD Presenation: Unstable angina Diagnostic Physicians Name: Osmin Iniguez MD Closure Device Recommendations: PCI without planned CABG Cardiac Cath Procedure Full Procedure Date May 30, 2019 Pre-Procedure Diagnosis Pre-Procedure Diagnosis: Non STEMI AUC Score AUC Score: 8 Post-Procedure Diagnosis Post-Procedure Diagnosis: Severe CAD and Successful PCI Procedure(s) Performed Procedure(s) Performed: Coronary Angiography, Left Heart Cath and Drug Eluting Stent Paper Conservator Osmin Iniguez MD Swing Type Lathe Operator(s) Odell Estimated Blood Loss Estimated Blood Loss: 10 Medication(s) Medication(s): Fentanyl, Heparin, Lidocaine 1%, Nicardipine, Nitroglycerin and Versed Summary of Findings Equipment used: 5 Hebrew tiger 4 Findings: Left main: Left main was normal in size and caliber and bifurcated normally into the left anterior descending left circumflex arteries there is no disease in this distribution Left anterior descending: Left anterior descending was a large transapical vessel. It produced a large diagonal branch and several additional diminutive diagonal branches. There is no significant disease in this vessel Left circumflex: Left circumflex artery was a non dominant vessel. There produced a large branching 1st OM system and a very small ongoing AV groove vessel. There is no significant disease in this vessel Right coronary artery: Right coronary artery was a normal sized dominant vessel. Approximately 30 percent irregular stenosis in its proximal portion and a 99 percent discrete stenosis in its midportion. Hemodynamics Rest Ao:: 109/60 millimeters of mercury Final Ao: 111/66 millimeters of mercury LV: 110/9 millimeters of mercury with left ventricular end-diastolic pressure of 10 millimeters of mercury Recommendations Recommendations: PCI without planned CABG Specimens Specimens: None Radiation Exposure (mGy) q Contrast (mls) q Drains Drains: None Anesthesia Moderate Procedural Complication(s) None Disposition PCU I attest to the content of the Intraoperative Record and any orders documented therein. Any exceptions are noted below.
[2019-05-30] MEDS: METOPROLOL TARTRATE 25 MG TAB PO SCH ×2 (13:33→20:30)
[2019-05-30] MEDS: ASCORBIC ACID 500 MG TAB PO SCH (13:33)
[2019-05-30] MEDS: ASPIRIN 81 MG ECTAB PO SCH (13:33)
[2019-05-30] MEDS: CALCIUM 600MG + VIT D 400 IU TAB PO SCH ×2 (13:33→20:30)
--- NOTE | 2019-05-30 14:05 | CT Scan Report ---
HEAD CT NONCONTRAST CT DOSE: 537.48 mGy.cm HISTORY: slurred speech s/p cath this AM TECHNIQUE: Multiaxial CT images of the head were performed without the use of intravenous contrast. A utomated exposure control was utilized for this study. A dose lowering technique was utilized adheri ng to the principles of ALARA. Comparison: Head CT 02/07/2007. Findings: The paranasal sinuses and mastoid air cells are clear. The calvarium and skull base are int act. There is no mass, hematoma, midline shift, acute infarct. White matter hypodensity is nonspecifi c but suggestive of microvascular ischemic change. The ventricles and sulci demonstrate mild age-rela mariusz involutional changes. Old punctate lacunar infarct within the left basal ganglia. Impression: No acute intracranial abnormality. Atrophy and microvascular ischemic changes. Electronically signed by: Miguel Blankenship M.D. 05/30/2019 2:04 PM
[2019-05-30] MEDS ORDERED: PROCHLORPERAZINE 10 MG in SYRINGE 8 ML IV ONE (14:10)
--- NOTE | 2019-05-30 14:14 | Progress Note ---
Date of Service May 30, 2019 During a routine recheck, patient stated that she felt like her speech was slurred. She said she thinks it started shortly after her PCI earlier this morning. During that initial questioning, she denied any headache, difficulties with swallowing, problems with extremity weakness/numbness/tingling, blurry vision, or other acute concerns (including any return of her chest pain). Vitals reviewed. Patient was awake, conversing fluently but questionable slurred speech. Family members in the room agreed that her speech sounded slurred (as compared to baseline). Normal symmetric smile and extremity movement. The patient was sent for an emergent CT scan of her head. This was read by radiology as "No acute intracranial abnormality. Atrophy and microvascular ischemic changes." Patient returned to the ICU shortly after scan. At that time, patient stated that her slurred speech felt like it was resolved. However, she states now that she thinks that she has one of her typical "migraines". She describes it as a discomfort behind her left eye with associated photophobia and nausea, rates it 7/10 pain scale. She says that this current headache feels very similar to previous headaches. She says this headache is been building ever since her PCI earlier this morning. Vitals reviewed. Patient continues to have no focal deficits on CN II-XII (IX not tested) as well as normal bilateral four slide machine setter strength, plantarflexion, and distal extremity sensation. She continues to speak very fluently and her speech sounds unchanged. Family members at bedside say that it sounds like her slurred speech has now resolved. Plan: - Will treat her headache acutely with compazine and benadryl, then re-evaluate. - Continue to monitor. Kaley Dale, PGY3 ICU Resident Supervising Physician Co-Signing Physician Notes Dr. Dale was resident physician during care of patient. I separately evaluated patient for spencer portions of the history and the exam. I was present during the critical portion of medical decision making, and I discussed the case with the resident. I generally agree with the findings and plan. Discussed with Willie Burgos, patient stable for downgrade out of ICU to telemetry status. Results & Data Vital Signs (Past 12 Hours) Vital Signs Temp Pulse Pulse Resp BP BP BP 05/30/19 13:00 36.7 C 70 19 130/85 05/30/19 12:00 69 15 128/80 05/30/19 11:30 70 16 128/81 05/30/19 11:00 36.8 C 77 77 18 119/77 05/30/19 10:52 67 71 16 124/68 05/30/19 10:40 67 66 16 117/72 05/30/19 10:25 63 62 16 115/66 05/30/19 10:10 63 63 16 118/77 05/30/19 09:55 64 64 16 120/73 05/30/19 09:50 64 64 16 120/71 05/30/19 09:45 68 66 16 124/72 05/30/19 09:40 66 67 16 130/75 05/30/19 08:16 74 30 H 108/73 05/30/19 08:15 67 22 05/30/19 08:00 67 16 108/67 05/30/19 07:45 36.8 C 61 16 109/65 05/30/19 07:31 69 17 132/57 L 05/30/19 07:00 65 15 131/80 05/30/19 06:47 62 16 128/81 05/30/19 06:31 69 18 135/83 05/30/19 06:15 68 16 137/86 05/30/19 06:00 58 L 16 119/76 05/30/19 05:50 58 L 18 136/85 05/30/19 05:30 61 20 145/82 H 05/30/19 05:10 58 L 16 145/83 H 05/30/19 04:55 67 20 129/90 05/30/19 02:20 36.9 C 64 18 126/70 Pulse Ox 05/30/19 13:00 96 05/30/19 12:00 95 05/30/19 11:30 96 05/30/19 11:00 97 05/30/19 10:52 95 05/30/19 10:40 95 05/30/19 10:25 95 05/30/19 10:10 94 05/30/19 09:55 94 05/30/19 09:50 94 05/30/19 09:45 94 05/30/19 09:40 95 05/30/19 08:16 100 05/30/19 08:15 100 05/30/19 08:00 100 05/30/19 07:45 99 05/30/19 07:31 98 05/30/19 07:00 96 05/30/19 06:47 100 05/30/19 06:31 99 05/30/19 06:15 98 05/30/19 06:00 100 05/30/19 05:50 100 05/30/19 05:30 99 05/30/19 05:10 100 05/30/19 04:55 99 05/30/19 02:20 98
[2019-05-30] MEDS: VITAMIN B COMPLEX TAB PO SCH (20:30)
[2019-05-30] MEDS: TOCOPHERYL, DL-ALPHA 400 UNITS CAP PO SCH (20:30)
[2019-05-31 05:57] LABS: Basophils # (auto) 0.02 K/uL (0-0.2); Basophils % (auto) 0.2 %; Eosinophils # (auto) 0.04 K/uL (0-0.5); Eosinophils % (auto) 0.4 %; Hematocrit (blood only) 39.8 % (37-47); Hemoglobin 13.8 g/dL (12.0-16.0); Immature Granulocytes # (auto) 0.01 K/uL (0.00-0.02); Immature Granulocytes % (auto) 0.1 %; Lymphocytes # (auto) 2.53 K/uL (1.2-3.4); Lymphocytes % (auto) 22.9 %; Mean Corpuscular Hemoglobin 30.1 pg (25-34); Mean Corpuscular Hgb Conc 34.7 g/dL (32-36); Mean Corpuscular Volume 86.9 fL (80-100); Mean Platelet Volume 9.4 fL (7.4-10.4); Monocytes % (auto) 11.8 %; Neutrophils # (auto) 7.15 K/uL (1.4-6.5); Neutrophils % (auto) 64.6 %; Platelet Count 285 K/uL (130-400); RDW Coefficient of Variation 13.8 % (11.5-14.5); RDW Standard Deviation 43.7 fL (36.4-46.3); Red Blood Count 4.58 M/uL (4.2-5.4); White Blood Count 11.05 K/uL (4.8-10.8)
[2019-05-31 06:32] LABS: BUN Creatinine Ratio 11.8 (10-20); Calcium 9.4 mg/dl (8.5-10.1); Creatinine Clr Calc Pharmacy 72.8 ml/min; Est GFR (African American) 85.1; Est GFR (Non-African American) 73.4; Phosphorus 3.1 mg/dl (2.5-4.9); Potassium 3.9 mmol/L (3.5-5.1)
[2019-05-31] MEDS: CALCIUM 600MG + VIT D 400 IU TAB PO SCH (08:59)
[2019-05-31] MEDS ORDERED: LISINOPRIL 5 MG TAB PO SCH (09:00)
[2019-05-31] MEDS ORDERED: PREMARIN VAG CRM 14 APPLN/30 GM TUBE PV SCH (09:00)
[2019-05-31] MEDS ORDERED: CLOPIDOGREL BISULFATE 75 MG TAB PO SCH (09:00)
[2019-05-31] MEDS: ASPIRIN 81 MG ECTAB PO SCH (09:00)
[2019-05-31] MEDS ORDERED: ATORVASTATIN 40 MG TAB PO SCH (09:00)
[2019-05-31] MEDS: ASCORBIC ACID 500 MG TAB PO SCH (09:00)
[2019-05-31] MEDS: METOPROLOL TARTRATE 25 MG TAB PO SCH (09:02)
--- NOTE | 2019-05-31 12:07 | Hospitalist Progress Note ---
Date of Service May 31, 2019 Assessment & Plan (1) Non-ST elevation [place] (NSTEMI): 59 yo F no PMHx here for chest pain and found to have NSTEMI. NSTEMI s/p PCI with placement to the CLARISA RCA Patient was evaluated in the emergency department for chest pain on 05/30 cardiac enzymes showed demonstrated elevated troponin to 0.291 EKG was negative for ST changes. Cardiology was consulted and recommended cardiac catheterization which demonstrated 99% occlusion of the RCA. Interventional cardiology was consulted for successful placement of a drug-eluting stent to the RCA. Patient received a loading dose of Plavix 300 mg intraoperatively, she reported being chest pain-free postoperatively. Cardiology recommends she continue dual antiplatelet therapy for at least one year with Plavix and a baby aspirin, atorvastatin 40 mg p.o. daily, lisinopril 5 mg daily, metoprolol 12.5 mg p.o. twice daily. Patient was monitored overnight in the ICU where she did well and was subsequently transferred to the telemetry floor. - Continue metoprolol 12.5mg PO BID, lisinopril 5mg PO daily, Plavix 75mg PO daily, atorvastatin 40mg PO daily, asa 81 PO daily. -Postop care per cardiology -Downgrade to telemetry Dysarthria / Slurred Speech due to Atypical Migraine In the immediate postoperative. Patient experienced dysarthria, CT head was obtained and was negative for intracranial pathology. Patient symptoms have completely resolved at times CT head was completed. Patient then reported symptoms of photo and phonophobia along with head pain and nausea and vomiting all symptoms of migraine. She was provided with Compazine and Benadryl and her symptoms improved. Given negative CT head and improvement with traditional migraine therapy her symptoms were most likely secondary to an atypical migraine. -Monitor for signs and symptoms of recurrence -Should the symptoms recur can attempt abortive medication with Compazine and Benadryl. Code Status: FULL CODE Diet: Heart Healthy DVT ppx: Heparin Dispo: tele d/c per cards (2) Dysarthria: (3) Migraine: Supervising Physician Co-Signing Physician Notes Resident Physician Supervision Note: I independently interviewed and examined the patient and verified the spencer history and physical, reviewed labs and image studies, discussed the case with the resident Dr. Reyna and agree with the findings and care plan. Subjective Patient sitting in bed this morning in no acute distress. Reports doing well overnight, is tolerating her diet, voiding on her own, slept well, no bowel movement yet. Patient reports no symptoms of chest pain chest pressure shortness of breath or any other essentially cardiac related symptoms. Patient reports overall feeling better status post her procedure and no longer experiencing the symptoms that caused her to present. Had a lengthy conversation with the patient regarding diet and exercise and lifestyle modifications she can make to prevent further foot complications or further exacerbations of her cardiac symptoms. Furthermore we had a discussion about the importance of cardiac medications, and adhering to the therapy prescribed by her materials management manager. She described to me that she likes to use natural supplements at home, I advised her to discuss these with her materials management manager to ensure there is no interactions. All questions answered no acute concerns. Patient for downgrade from ICU to telemetry Physical Exam Physical Exam: General: No acute distress HEENT: Normocephalic atraumatic Neck: No significant lymphadenopathy, trachea midline, normal to visual inspection Cardiac: Regular rate and rhythm, normal S1, normal S2, I did not appreciated any significant murmurs rubs or gallops, I did not appreciate any significant pedal edema, No calf tenderness, capillary refill is less than 3 seconds Respiratory: Clear to auscultation bilaterally with symmetrical chest rise, I did not appreciate any significant wheezes, rales, rhonchi, no increased work of breathing GI: Normal bowel sounds, soft, nontender in all 4 quadrants, nondistended MSK: No sensory or motor changes, moves all extremities without issue, extremities are warm and well-perfused Skin: [place], clean, dry, intact. Surgical site clean dry and intact Neuro: Alert and oriented x4 Psych: Calm, cooperative, logical thought process Results & Data Vital Signs (Past 12 Hours) Vital Signs Temp Pulse Pulse Resp BP BP Pulse Ox 05/31/19 11:01 36.8 C 57 L 18 142/86 H 97 05/31/19 10:35 59 L 05/31/19 09:02 64 18 122/69 05/31/19 08:22 31 H 126/78 05/31/19 07:00 57 L 18 113/70 96 05/31/19 06:40 52 L 05/31/19 06:00 54 L 13 130/74 97 05/31/19 05:41 60 14 119/76 97 05/31/19 05:00 60 17 122/70 97 05/31/19 04:00 36.8 C 57 L 20 115/65 95 05/31/19 03:00 64 18 99/68 L 93 05/31/19 02:00 63 12 121/74 94 05/31/19 01:00 67 16 119/73 97 05/31/19 00:08 36.7 C 65 30 H 124/76 96 05/31/19 00:07 93 Laboratory Results 05/31/19 05/31/19 05/31/19 Range/Units 05:36 05:36 00:09 WBC 11.05 H (4.8-10.8) K/uL RBC 4.58 (4.2-5.4) M/uL Hgb 13.8 (12.0-16.0) g/dL Hct 39.8 (37-47) % MCV 86.9 (80-100) fL MCH 30.1 (25-34) pg MCHC 34.7 (32-36) g/dL RDW Std Deviation 43.7 (36.4-46.3) fL RDW Coeff of Jaymie 13.8 (11.5-14.5) % Plt Count 285 (130-400) K/uL MPV 9.4 (7.4-10.4) fL Immature Gran % (Auto) 0.1 % Neut % (Auto) 64.6 % Lymph % (Auto) 22.9 % [place] % (Auto) 11.8 % Eos % (Auto) 0.4 % Baso % (Auto) 0.2 % Immature Gran # (Auto) 0.01 (0.00-0.02) K/uL Neut # (Auto) 7.15 H (1.4-6.5) K/uL Lymph # (Auto) 2.53 (1.2-3.4) K/uL [place] # (Auto) 1.30 H (0.11-0.59) K/uL Eos # (Auto) 0.04 (0-0.5) K/uL Baso # (Auto) 0.02 (0-0.2) K/uL Sodium 139 (136-145) mmol/L Potassium 3.9 (3.5-5.1) mmol/L Chloride 108 H (98-107) mmol/L Carbon Dioxide 24 (21-32) mmol/L Anion Gap 8.0 (3-11) BUN 10 D (7-18) mg/dl Creatinine 0.86 (0.6-1.2) mg/dl Est Cr Clr Drug Dosing 72.8 ml/min Est GFR ( Amer) 85.1 Est GFR (Non-Af Amer) 73.4 BUN/Creatinine Ratio 11.8 (10-20) Glucose 96 (70-99) mg/dl POC Glucose 109 H (70-99) Calcium 9.4 (8.5-10.1) mg/dl Phosphorus 3.1 (2.5-4.9) mg/dl Magnesium 2.0 (1.8-2.4) mg/dl 05/30/19 Range/Units 17:54 WBC (4.8-10.8) K/uL RBC (4.2-5.4) M/uL Hgb (12.0-16.0) g/dL Hct (37-47) % MCV (80-100) fL MCH (25-34) pg MCHC (32-36) g/dL RDW Std Deviation (36.4-46.3) fL RDW Coeff of Jaymie (11.5-14.5) % Plt Count (130-400) K/uL MPV (7.4-10.4) fL Immature Gran % (Auto) % Neut % (Auto) % Lymph % (Auto) % [place] % (Auto) % Eos % (Auto) % Baso % (Auto) % Immature Gran # (Auto) (0.00-0.02) K/uL Neut # (Auto) (1.4-6.5) K/uL Lymph # (Auto) (1.2-3.4) K/uL [place] # (Auto) (0.11-0.59) K/uL Eos # (Auto) (0-0.5) K/uL Baso # (Auto) (0-0.2) K/uL Sodium (136-145) mmol/L Potassium (3.5-5.1) mmol/L Chloride (98-107) mmol/L Carbon Dioxide (21-32) mmol/L Anion Gap (3-11) BUN (7-18) mg/dl Creatinine (0.6-1.2) mg/dl Est Cr Clr Drug Dosing ml/min Est GFR ( Amer) Est GFR (Non-Af Amer) BUN/Creatinine Ratio (10-20) Glucose (70-99) mg/dl POC Glucose 114 H (70-99) Calcium (8.5-10.1) mg/dl Phosphorus (2.5-4.9) mg/dl Magnesium (1.8-2.4) mg/dl Medications Administered Current Inpatient Medications Acetaminophen (Tylenol) 650 mg PO Q4H PRN PRN Reason: Pain or Fever Stop: 06/28/19 18:22 Al Hydrox/Mg Hydrox/Simethicone (Maalox) 15 ml PO Q4H PRN PRN Reason: Dyspepsia Stop: 06/28/19 18:22 Ascorbic Acid (Vitamin C) [facility] [place]: 06/29/19 08:59 Last Admin: 05/31/19 09:00 Dose: 1,000 mg Documented by: Aspirin (Ecotrin Ectab) 81 mg PO [facility] Stop: 06/29/19 08:59 Last Admin: 05/31/19 09:00 Dose: 81 mg Documented by: Atorvastatin Calcium (Lipitor) 40 mg PO [facility] Stop: 06/30/19 08:59 Last Admin: 05/31/19 09:00 Dose: 40 mg Documented by: Clopidogrel Bisulfate (Plavix) 75 mg PO [facility] Stop: 06/30/19 08:59 Last Admin: 05/31/19 08:59 Dose: 75 mg Documented by: Lisinopril (Zestril) 5 mg PO [facility] Stop: 06/30/19 08:59 Last Admin: 05/31/19 09:02 Dose: 5 mg Documented by: Lorazepam (Ativan) 1 mg PO BID PRN PRN Reason: Anxiety Stop: 06/28/19 18:22 Magnesium Hydroxide (Milk Of Magnesia) 30 ml PO Q12H PRN PRN Reason: Constipation Stop: 06/28/19 18:22 Metoprolol Tartrate (Lopressor) 12.5 mg PO BID [facility] Stop: 06/28/19 20:59 Last Admin: 05/31/19 09:02 Dose: 12.5 mg Documented by: Miscellaneous (Icu Protocol For Hyperglycemia) 1 ea N/A PRN PRN; Protocol PRN Reason: Hyperglycemia Protocol Stop: 06/01/19 05:28 Morphine Sulfate (Morphine Sulfate) 2 mg IV Q30M PRN PRN Reason: Chest Pain Stop: 06/12/19 18:22 Last Admin: 05/30/19 04:12 Dose: 2 mg Documented by: Multivitamins/Minerals (Caltrate Plus) 1 tab PO BID JOSE LUIS Stop: 06/28/19 20:59 Last Admin: 05/31/19 08:59 Dose: 1 tab Documented by: Mupirocin (Bactroban 2%) 1 appln EXT BID PRN PRN Reason: eczema Stop: 06/28/19 18:22 Nitroglycerin (Nitrostat) 0.4 mg SL UD PRN PRN Reason: Chest Pain Stop: 06/28/19 18:22 Ondansetron HCl (Zofran) 4 mg IV Q6H PRN PRN Reason: Nausea Stop: 06/28/19 18:22 Last Admin: 05/30/19 07:15 Dose: 4 mg Documented by: Polyethylene Glycol (Miralax Powder Packet) 17 gm PO DAILY PRN PRN Reason: Constipation Stop: 06/28/19 18:22 Vitamin B Complex (Vitamin B Complex) 1 tab PO QPM JOSE LUIS Stop: 06/28/19 20:59 Last Admin: 05/30/19 20:30 Dose: 1 tab Documented by: Vitamin E (Vitamin E) 400 units PO HS JOSE LUIS Stop: 06/28/19 20:59 Last Admin: 05/30/19 20:30 Dose: 400 units Documented by: Zolpidem Tartrate (Ambien) 5 mg PO HS PRN PRN Reason: Sleep Stop: 06/28/19 18:22 Resident Activity Tracking Resident Involvement: Resident Care Provided Care Provided: Adult Hospital Medicine
--- NOTE | 2019-05-31 12:44 | Discharge Summary ---
Date of Service May 31, 2019 Admission HPI Per Admitting Provider This is a 58-year-old woman who has a history of borderline hypertension as well as a strong family history of heart disease. She developed chest discomfort in October 2018 and presented here, her symptoms were relieved after about 2 hours in the ED. Her troponin measurements at that time were unremarkable and she went on to have a treadmill stress echocardiogram which was normal. She presents now with recurrent chest discomfort which she describes as a burning sensation in her chest, which started last evening. It had been relieved after her initial presentation, and her initial troponins were below the abnormal range although the second was slightly increased compared to the first therefore we contemplated a stress test following a third enzyme. The enzymes were drawn close together, however the third enzyme reading is 0.047, technically positive. She is complaining of the substernal burning type sensation. This started several days ago, however this morning she noticed that it was much more pr onounced and if she would exert herself such as walking it would tend to be present, if she stopped and rested and did not move it would tend to resolve. She therefore came into the emergency room. The episodes would probably last about 20 minutes or less when she had them. Recently she was in [place] and was bike riding and did not have any difficulty, she has not been walking very much because she is having trouble with her feet at the moment. She will be admitted for further evaluation and management. Cardiology was consulted and plan is for cardiac cath in the a.m. Admission Exam Per Admitting Provider GENERAL : No acute distress EYES: No icterus, gaze conjugate NOSE: No evidence of epistaxis MOUTH: No lesions or candidiasis, mucosa moist NECK: Supple LUNGS: CTA B/L, no wheezes, rales or rhonchi HEART: Regular, rate controlled ABDOMEN: Soft, NT, ND, BS Present EXTREMITIES: No LE edema, pedal pulses intact NEURO: A&OX3 Principal Diagnosis NSTEMI Discharge Exam General: No acute distress HEENT: Normocephalic atraumatic Neck: No significant lymphadenopathy, trachea midline, normal to visual inspection Cardiac: Regular rate and rhythm, normal S1, normal S2, I did not appreciated any significant murmurs rubs or gallops, I did not appreciate any significant pedal edema, No calf tenderness, capillary refill is less than 3 seconds Respiratory: Clear to auscultation bilaterally with symmetrical chest rise, I did not appreciate any significant wheezes, rales, rhonchi, no increased work of breathing GI: Normal bowel sounds, soft, nontender in all 4 quadrants, nondistended MSK: No sensory or motor changes, moves all extremities without issue, extremities are warm and well-perfused Skin: [place], clean, dry, intact. Surgical site clean dry and intact Neuro: Alert and oriented x4 Psych: Calm, cooperative, logical thought process Discharge Data Allergies Allergy/AdvReac Type Severity Reaction Status Date / Time iodine Allergy Intermediate rash Verified 05/29/19 13:51 adhesive Allergy Mild SKIN Verified 05/29/19 13:51 IRRITATION Consultations 05/29/19 17:00 ED Decision to Admit Stat 05/30/19 05:30 Consult Case Management - Discharge Planning Routine 05/30/19 05:49 Consult Hot Header Operator Routine 05/30/19 10:55 Consult Cardiac Rehabilitation Routine 05/30/19 15:04 Consult Cardiology Routine Procedures Performed Operation Date: 05/30/19 12:00 Actual Procedures s Cineradiography w/Routine Exam - Juanjo Iniguez MD p Cath, Left with Cors and Vent - Juanjo Iniguez MD p Drug Eluting Stent SGl Vessel - Juanjo Burgos MD Ordered Studies 05/30/19 07:19 CL Cath Imgs for PACS use only Routine 05/30/19 13:22 CT head/brain wo con Stat Hospital Course (1) Non-ST elevation OK (NSTEMI): 59 yo F no PMHx here for chest pain and found to have NSTEMI. NSTEMI s/p PCI with placement to the CLARISA RCA Patient was evaluated in the emergency department for chest pain on 05/30 cardiac enzymes showed demonstrated elevated troponin to 0.291 [address] was negative for ST changes. Cardiology was consulted and recommended cardiac catheterization which demonstrated 99% occlusion of the RCA. Interventional cardiology was consulted for successful placement of a drug-eluting stent to the RCA. Patient received a loading dose of Plavix 300 mg intraoperatively, she reported being chest pain-free postoperatively. Cardiology recommends she co ntinue dual antiplatelet therapy for at least one year with Plavix and a baby aspirin, atorvastatin 40 mg p.o. daily, lisinopril 5 mg daily, metoprolol 12.5 mg p.o. twice daily. Patient was monitored overnight in the ICU where she did well and was subsequently transferred to the telemetry floor. -Continue metoprolol 12.5mg PO BID, lisinopril 5mg PO daily, Plavix 75mg PO daily, atorvastatin 40mg PO daily, asa 81 PO daily. -Postop care per cardiology -Downgrade to telemetry Dysarthria / Slurred Speech due to Atypical Migraine In the immediate postoperative. Patient experienced dysarthria, CT head was obtained and was negative for intracranial pathology. Patient symptoms have completely resolved at times CT head was completed. Patient then reported symptoms of photo and phonophobia along with head pain and nausea and vomiting all symptoms of migraine. She was provided with Compazine and Benadryl and her symptoms improved. Given negative CT head and improvement with traditional migraine therapy her symptoms were most likely secondary to an atypical migraine. -Monitor for signs and symptoms of recurrence Code Status: FULL CODE Diet: Heart Healthy DVT ppx: Heparin Dispo: tele d/c per cards Total Time Total Time Spent Total Time Spent (In Minutes): see attestation Discharge Plan Discharge Items Patient Disposition: Home - Self-Care Reason For Visit: CHEST PAIN Discharge Diagnosis: And STEMI with successful PCI with CLARISA to RCA Activity: Per Instructions section Non-emergency contact: Primary Care Provider and Body Team Member Call non-emergency contact if: you have any medication questions, your pain is not controlled, your pain is worsening, your temperature is above 101 and your wound has increased redness Follow-up/Referrals: Eugene Sutton, [Primary Care Provider] - Diet: Heart Healthy Addtl Attending Provider Instructions: Care instructions: You were admitted to [facility] for treatment of non-ST elevation myocardial infarction. A discharge summary will be sent to your primary care physician to ensure continuity of care. Please bring this discharge summary with you to your next office appointment so that your provider can review it at that time. Follow-up appointments: - Keep all your follow-up appointments as already scheduled. If you cannot make an appointment, notify your provider. - Please call to request a follow-up appointment with your primary care physic stoney within one week of discharge. Please let us know if you are unable to obtain an appointment Medications: Your medications have been called into the [facility] on [facility] - Your medication list has been reviewed and reconciled upon discharge to ensure accuracy and continuity of care. - You are provided with a list of all your current medications at this time. Please review this list closely and make note of any changes. - Please take all of your medications exactly as prescribed. - Tell your primary care provider if you cannot afford your medications. - Call your primary care provider if you are having any side effects or any other problems. - Call your primary care provider before taking any over the counter medications or supplements, including herbals and vitamins, because some of these may interact with your current medications and/or make your symptoms worse. Symptoms: Please call your primary care provider for symptoms including, but not limited to: fevers (temperatures greater than 100.4), chills, intractable nausea or vomiting, diarrhea, rash, shortness of breath, bleeding, pain, or if you experience any worsening of the symptoms that brought you to the hospital. For EMERGENCY and VERY SERIOUS health-related issues, such as chest pain, shortness of breath, or sudden onset of the symptoms that brought you to the hospital, you may need to call 911 or go directly to the Emergency Room It has been our privilege to take care of you during your hospital stay. And Above All Else Feel Better! Best Wishes, Luis Manuel Reyna MD PGY2 Resident, Family & Community Medicine [facility] - [address], [address] : [place] [address] Pending Studies at Discharge: No Stand-Alone Forms: Call Back Authorization, [facility], Smoking Cessation Medications and DC Order Prescriptions: New atorvastatin 40 mg Tablet 40 mg PO QAM 30 Days Qty: 30 RF: 0 clopidogrel 75 mg Tablet 75 mg PO QAM 30 Days Qty: 30 RF: 0 lisinopril [Zestril] 5 mg Tablet 5 mg PO QAM 30 Days Qty: 30 RF: 0 nitroglycerin [Nitrostat] 0.4 mg Tablet, Sublingual 0.4 mg sublingual UD PRN (Reason: chest pain) Qty: 5 RF: 0 metoprolol tartrate 25 mg Tablet 12.5 mg PO BID 30 Days Qty: 30 RF: 0 aspirin [Ecotrin Low Strength] 81 mg Tablet,Delayed Release (Dr/Ec) 81 mg PO QAM 30 Days Qty: 30 RF: 0 Continued calcium carb-mag oxide-vit D3 [id number] mg-mg-unit tablet 1 tab PO BID RF: 0 coenzyme Q10 100 mg capsule 100 mg PO QAM RF: 0 vitamin A 8,000 unit capsule 8,000 unit PO QAM RF: 0 vitamin B complex [Super B-50 Complex] capsule 1 cap PO QPM RF: 0 vitamin E (dl, acetate) 400 unit capsule 400 units PO HS RF: 0 Emergen-C 1,000 mg Powder Effervescent In Packet 1,000 mg PO QAM RF: 0 Vitamin D Drops 1 drp PO DAILY RF: 0 Premarin 0.625 mg/gram Cream 1 dose vaginal 2XWK RF: 0 mupirocin 2 % Ointment 1 applic TOPICAL BID PRN (Reason: eczema) RF: 0 Discharge Orders: Discharge Order (Routine); Ordered 05/31/19 Ordered By: Luis Manuel Ko/Other Patient Handouts: Stent Coronary, Catheterization Cardiac, Meds Taking, Atorvastatin Calcium Oral tablet, Clopidogrel Bisulfate Oral tablet, Metoprolol Tartrate Oral tablet, Nitroglycerin Sublingual tablet, Lisinopril Oral tablet, Aspirin Oral tablet Admission Data Admit Date/Time: 05/29/19 17:25 Attending Provider: Radha Butler Admit Provider: Michael Chang Primary Care Provider: Eugene Sutton Other Providers: Michael Chagn ; Yoni Aiken ; Jose Butterfield Other Interventions: Discharge Summary Assessment (RN) Last Done: 05/31/19 12:52 DC Date/Time DO NOT enter until pt leaves facility: 05/31/19 13:25 Supervising Physician Co-Signing Physician Notes Resident Physician Supervision Note: I independently interviewed and examined the patient and verified the spencer history and physical, reviewed labs and image studies, discussed the case with the resident Dr. Reyna and agree with the findings and care plan. Resident Activity Tracking Resident Involvement: Resident Care Provided Care Provided: Adult Hospital Medicine
== END 2019-05-31 13:25 | disposition home or self-care (01) | DRG 247 ==
LOC: ED 12:00 → SUATTDRO 17:25 → 2E 17:25 → 1E 05-30 04:59 → 2E 05-31 09:54

== ENCOUNTER 2024-08-12 14:27 | Observation (INO) ==
--- NOTE | 2024-08-12 14:50 | Emergency Department Note ---
Impression & Plan Stroke-like symptoms, Acute hyponatremia, LOLIS (acute kidney injury) ED Provider Note HISTORY OF PRESENT ILLNESS: Patient is a 64-year-old female presenting with intermittent confusion and word finding difficulties. Patient reports that she has been having symptoms intermittently for the last 4 days. States that she has "a migraine headache without the headache." She describes this as having an aura like she is going to have a migraine headache but does not get the headache portion. States that Tammy has difficulties finding words and notices some blurry vision. She states that she has intermittently had some weakness in her right lower extremity. She states the symptoms seem to come and go over the last 4 days. She had another episode while out with lunch for a friend about 2 hours prior to arrival in the emergency department. She is not on any anticoagulation, but is on an 81 mg aspirin daily. Denies any chest pain or shortness of breath. Denies any recent falls or recent head injuries. Denies any fevers. ROS: as above PHYSICAL EXAM: Constitutional: Patient appears in no acute distress. HENT: Head: Normocephalic and atraumatic. Eyes: EOMI, PERRL Mouth/Throat: Mucous membranes moist. Neck: Trachea midline. Neck supple. Cardiovascular: RRR, No murmurs, rubs or gallops. Intact distal pulses. Pulmonary/Chest: No respiratory distress. Breath sounds clear and equal bilaterally. No wheezes or rales. Abdominal: Abdomen soft, no tenderness, rebound or guarding. Musculoskeletal: No edema, tenderness or deformity noted. Skin: Warm and dry. No rash, erythema, pallor or cyanosis Psychiatric: Appropriate mood and affect for situation. Neurological: Alert and keenly responsive. Facies symmetric. Able to raise eyebrows, close eyes, smile, puff mouth, stick out tongue, move tongue left and right and raise palate symmetrically. Able to shrug shoulders. PERRLA. SILT to forehead below eye and at jawline. Can hear soft noise bilaterally. Good finger to nose. Strength 5/5 in bilateral upper and lower extremities. SILT throughout bilateral upper and lower extremities. MDM: - Vitals signs showed hypertension - History obtained via patient. History as above. - Chronic conditions affecting care: HTN; HLD; CAD (s/p PCI); paroxysmal Afib - Differential diagnoses include, but are not limited to: hypertensive urgency; CVA; intracranial hemorrhage; ACS; pneumonia; complex migraine - Order placed for continuous cardiac monitoring. At this time, monitor showed rate of 71 bpm with normal sinus rhythm, per my interpretation. - External medical records reviewed. Primary care office visit note dated 06/25/2024 was reviewed. Patient was seen for acute left leg pain. She had an ultrasound Doppler ordered at that time. - EKG interpreted by myself showed normal sinus rhythm. Rate 73 bpm. QT 378. No acute ischemic changes. - Laboratory workup interpreted by myself showed leukopenia (WBC 3.97); elevated INR (1.3); hyponatremia (Na 126); LOLIS (Cr 1.28); normal troponin - CXR negative for pneumonia, per my interpretation - CT head wo contrast negative for acute pathology - Patient has allergy to iodine. She was given 50 mg IV Benadryl and 40 mg IV Solu-Medrol for pretreatment for contrast bolus. - CTA head negative for acute abnormality - CTA neck negative for acute abnormality. Noted to have some moderate stenosis of the left vertebral artery at the C6-C7 level. - Given 500 cc NS. - Viral respiratory panel negative - Patient is on a TNK candidate, given that she has an NIH stroke scale of 0 on arrival and has been having intermittent symptoms for multiple days. CT imaging is negative for a large vessel occlusion, so no intravascular thrombectomy is warranted. However, unclear if patient is having word finding difficulty secondary to her hyponatremia. It does not appear that her sodium has been this low in the past. Ordered further laboratory testing, including serum osmole's, urine osmole's and TSH. Will admit to hospitalist service for further evaluation and management. - Discussion was had with case advocate about patient's case and need for admission - Hospitalist consulted for admission - Patient admitted to [facility] hospitalist service for further evaluation and management. ASSESSMENT AND PLAN: Diagnosis: stroke like symptoms; acute hyponatremia; LOLIS Plan: admit Past Med/Surg History Problem List (Updated 08/12/24 @ 16:27 by Gabby Reid MD) LOLIS (acute kidney injury) (Acute) Acute hyponatremia (Acute) Stroke-like symptoms (Acute) Vaginal odor Eye pressure Nasal trauma Chronic sinusitis Upper airway cough syndrome Cough Postmenopausal atrophic vaginitis Eczema Arthritis PAF (paroxysmal atrial fibrillation) Postmenopausal status Coronary artery disease s/p cardiac catheterization on 05/30/2019, single CLARISA to mid RCA Dyslipidemia Anxiety Spinal stenosis (Acute) Spondylolisthesis, acquired (Acute) Heart palpitations (Acute) HTN (hypertension) (Chronic) Medical History Nasal septal deviation Seborrheic keratosis Seborrheic dermatitis Rosacea Multiple benign nevi Milia Ganglion cyst of finger of right hand Dermatofibroma Carpal tunnel syndrome of right wrist Bunion of great toe Angioma Macular edema Migraine Dysfunctional uterine bleeding Anorexia nervosa Diverticulosis Hypercholesterolemia Finger fracture, left Surgical History S/P cardiac catheterization History of heart artery stent H/O foot surgery S/P tubal ligation S/P tonsillectomy H/O hand surgery History of dilation and curettage History of dental surgery History of colposcopy Cataract Family History Aunt Breast cancer Uncle Breast cancer Mother Heart disease Hypertension Kidney disease Myocardial infarction Sister Kidney disease Heart disease New onset a-fib Father Lung cancer Denies family history of Ovarian cancer Prostate cancer Colorectal cancer Social History Smoking Status: Never smoker Tobacco Type: Cigarettes Age Started Using Tobacco: 16; Age Quit Using Tobacco: 17; packs per day: 0.15; Second Hand Exposure: No; Do You Dip or Chew Tobacco: No; Hx Alcohol Use: Yes Alcohol type: wine Alcohol Intake Frequency: 2-3 x/Week Hx Substance Use: No Preferred Language: Paraguayan Communication Ability: Effective Visual Impairment: No Limitations Hearing Ability: Normal 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 Beliefs That Will Affect Care: None marital status: Current Living Situation: Spouse Current Living Situation Comment: Van Walter (Son) current occupational status: other current occupation: has rental properties How many Children do You have: 1 Feels Safe at Home: Yes Childhood Exposure to Second-Hand Smoke: Yes Diet: regular caffeine: Yes during the past year weight has: remained stable Dental Care, Regularly: Yes Physical Activity Frequency: 3-4 Times per Week Seatbelt Use: always Sunscreen Use: Yes Assistive Devices: Glasses Allergies Allergies Allergy/AdvReac Type Severity Reaction Status Date / Time iodine Allergy Intermediate rash Verified 07/31/24 12:55 adhesive Allergy Mild SKIN Verified 07/31/24 12:55 IRRITATION latex Allergy Unknown Unknown Verified 07/31/24 12:55 No Known Drug Allergies Allergy Verified 07/31/24 12:55 Home Meds Home Medications Medication Instructions Recorded Confirmed calcium 400 mg 1 tab PO BID 04/01/19 07/31/24 (carbonate)-magnesium 167 mg (oxide)-D3 133 unit tablet coenzyme Q10 100 mg capsule 100 mg PO QAM 04/01/19 07/31/24 aspirin 81 mg tablet,delayed 81 mg PO DAILY 09/30/20 07/31/24 release (Adult Low Dose Aspirin) multivitamin (Daily Multi-Vitamin 1 tab PO BID 09/30/20 07/16/24 tablet) omega-3 fatty acids 1,000 mg 1,000 mg PO DAILY 11/12/20 07/31/24 capsule (Fish Oil Concentrate) Previous Rx's Medication Instructions Recorded betamethasone dipropionate 0.05 % 1 applic topical BID PRN itching 08/17/23 topical ointment 14 days #45 grams ketoconazole 2 % shampoo 1 applic topical .COMPLEX #120 mL 08/17/23 sodium chloride, sodium See Rx Instructions .Route 01/03/24 bicarb-nasal rinse squeeze bottle .COMPLEX #50 ea with packet (Neilmed Sinus Rinse Complete with packet) fluticasone propionate 50 1 spray intranasal DAILY #16 grams 01/04/24 mcg/actuation nasal spray,suspension rosuvastatin 10 mg tablet See Rx Instructions .Route 02/11/24 .COMPLEX #90 tabs ondansetron 4 mg disintegrating 4 mg PO Q8H PRN nausea and 04/29/24 tablet vomiting #10 tabs sumatriptan succinate 50 mg tablet See Rx Instructions PO .COMPLEX 04/29/24 #10 tabs evolocumab 140 mg/mL subcutaneous 140 mg subcut .w0pchrs #1 mL 06/02/24 pen injector (Liv Frederick) pneumoc 20-gavin conj-dip cr(PF) 0.5 0.5 ml IM ONCE #0.5 mL 06/02/24 mL IM syringe (Prevnar 20 (PF)) ipratropium bromide 21 mcg (0.03 See Rx Instructions .Route 06/04/24 %) nasal spray .COMPLEX #30 mL citalopram 10 mg tablet 10 mg PO DAILY #90 tabs 06/09/24 metronidazole 0.75 % topical gel 1 applic topical .COMPLEX #45 grams 07/31/24 Results & Data (ED) Vital Signs Vital Signs - 24 hr 08/12/24 14:34 08/12/24 15:02 08/12/24 16:00 Temperature 36.8 C Temperature Source Oral Pulse Rate 71 71 Pulse Rate [Left Finger] 71 Pulse Rhythm Regular Pulse Strength Normal Respiratory Rate 20 26 H Respiratory Effort / Characteristics Non-Labored Respiratory Depth Normal Respiratory Pattern Regular Blood Pressure 186/116 H Blood Pressure [Left Arm] 177/126 H Blood Pressure Mean 139 Blood Pressure Mean [Left Arm] 143 Blood Pressure Position Sitting Pulse Oximetry 99 97 Oxygen Delivery Method Room Air Sepsis Recent Fever Within 48 Hours No Sepsis New/Unexplained Change in Mental Status No Sepsis Action Taken by Nursing No Action Required Laboratory Data 08/12/24 14:38 08/12/24 14:38 Lab Results 08/12/24 08/12/24 08/12/24 Range/Units 14:38 14:56 15:50 WBC 3.97 L (4.8-10.8) K/ul RBC 4.42 (4.20-5.40) M/uL Hgb 13.4 (12.0-16.0) g/dl POC Hgb 13.6 (12.0-16.0) g/dl Hct 38.4 (37.0-47.0) % POC Hct 40 (37-47) % MCV 86.9 (80.0-100.0) fL MCH 30.3 (25.0-34.0) pg MCHC 34.9 (32.0-36.0) g/dL RDW Std Deviation 40.8 (36.4-46.3) fL RDW Coeff of Jaymie 12.8 (11.5-14.5) % Plt Count 253 (130-400) K/uL MPV 10.2 (9.4-12.4) fL PT 13.7 H (9.0-12.0) Seconds INR 1.3 H (0.9-1.1) APTT 31 (21-31) Seconds PTT Ratio 1.2 POC Sodium 127 L (135-144) mmol/L Sodium 126 L (136-145) mmol/L POC Potassium 3.5 (3.3-5.0) mmol/L Potassium 3.5 (3.5-5.1) mmol/L POC Chloride 92 L (101-112) mmol/L Chloride 92 L (98-107) mmol/L Carbon Dioxide 26 (21-32) mmol/L POC Total CO2 22 L (24-31) mmol/L Anion Gap 8 (3-11) POC Anion Gap 18.0 (16-25) mmol/L POC BUN 13 (7-18) mg/dl BUN 14 (6-23) mg/dl Creatinine 1.28 H (0.6-1.2) mg/dl POC Creatinine 1.3 (0.6-1.3) mg/dl Est Cr Clr Drug Dosing 45.7 ml/min eGFR 46.49 BUN/Creatinine Ratio 10.9 (10-20) Glucose 126 H (70-99(Fasting)) mg/dl POC Glucose (other) 125 H (70-99) mg/dl Osmolality 264 L (280-300) mOsm/kg Calcium 9.3 (8.6-10.3) mg/dl POC Ioniz Calcium Monique 1.14 (1.12-1.32) mmol/l Magnesium 1.7 (1.7-2.4) mg/dl Total Bilirubin 0.4 (0.2-1.0) mg/dl AST 33 (13-39) U/L ALT 28 (7-52) U/L Alkaline Phosphatase 77 (34-104) U/L Troponin I High Sens (0-14) pg/ml Total Protein 7.2 (6.0-8.3) gm/dl Albumin 4.4 (3.4-5.0) gm/dl Globulin 2.8 (2.5-4.0) gm/dl Albumin/Globulin Ratio 1.6 (0.9-2) TSH (0.300-4.500) uIu/ml Adenovirus (PCR) Not Detected (NotDetected) B. pertussis DNA (PCR) Not Detected (NotDetected) B.parapertussis DNA PCR Not Detected (NotDetected) C. pneumoniae DNA (PCR) Not Detected (NotDetected) Coronavirus OC43 (PCR) Not Detected (NotDetected) Coronavirus HKU1 (PCR) Not Detected (NotDetected) Coronavirus 229E (PCR) Not Detected (NotDetected) SARS-CoV-2 (PCR) Not Detected (NotDetected) Coronavirus NL63 (PCR) Not Detected (NotDetected) Human Metapneumovir PCR Not Detected (NotDetected) Influenza Type A (PCR) Not Detected (NotDetected) Influenza Type B (PCR) Not Detected (NotDetected) M. pneumoniae (PCR) Not Detected (NotDetected) Parainfluenza 1 (PCR) Not Detected (NotDetected) Parainfluenza 2 (PCR) Not Detected (NotDetected) Parainfluenza 3 (PCR) Not Detected (NotDetected) Parainfluenza 4 (PCR) Not Detected (NotDetected) RSV (PCR) Not Detected (NotDetected) Entero/Rhino (PCR) Not Detected (NotDetected) 08/12/24 Range/Units 16:30 WBC (4.8-10.8) K/ul RBC (4.20-5.40) M/uL Hgb (12.0-16.0) g/dl POC Hgb (12.0-16.0) g/dl Hct (37.0-47.0) % POC Hct (37-47) % MCV (80.0-100.0) fL MCH (25.0-34.0) pg MCHC (32.0-36.0) g/dL RDW Std Deviation (36.4-46.3) fL RDW Coeff of Jaymie (11.5-14.5) % Plt Count (130-400) K/uL MPV (9.4-12.4) fL PT (9.0-12.0) Seconds INR (0.9-1.1) APTT (21-31) Seconds PTT Ratio POC Sodium (135-144) mmol/L Sodium (136-145) mmol/L POC Potassium (3.3-5.0) mmol/L Potassium (3.5-5.1) mmol/L POC Chloride (101-112) mmol/L Chloride (98-107) mmol/L Carbon Dioxide (21-32) mmol/L POC Total CO2 (24-31) mmol/L Anion Gap (3-11) POC Anion Gap (16-25) mmol/L POC BUN (7-18) mg/dl BUN (6-23) mg/dl Creatinine (0.6-1.2) mg/dl POC Creatinine (0.6-1.3) mg/dl Est Cr Clr Drug Dosing ml/min eGFR BUN/Creatinine Ratio (10-20) Glucose (70-99(Fasting)) mg/dl POC Glucose (other) (70-99) mg/dl Osmolality (280-300) mOsm/kg Calcium (8.6-10.3) mg/dl POC Ioniz Calcium Monique (1.12-1.32) mmol/l Magnesium (1.7-2.4) mg/dl Total Bilirubin (0.2-1.0) mg/dl AST (13-39) U/L ALT (7-52) U/L Alkaline Phosphatase (34-104) U/L Troponin I High Sens 9.6 (0-14) pg/ml Total Protein (6.0-8.3) gm/dl Albumin (3.4-5.0) gm/dl Globulin (2.5-4.0) gm/dl Albumin/Globulin Ratio (0.9-2) TSH 1.551 (0.300-4.500) uIu/ml Adenovirus (PCR) (NotDetected) B. pertussis DNA (PCR) (NotDetected) B.parapertussis DNA PCR (NotDetected) C. pneumoniae DNA (PCR) (NotDetected) Coronavirus OC43 (PCR) (NotDetected) Coronavirus HKU1 (PCR) (NotDetected) Coronavirus 229E (PCR) (NotDetected) SARS-CoV-2 (PCR) (NotDetected) Coronavirus NL63 (PCR) (NotDetected) Human Metapneumovir PCR (NotDetected) Influenza Type A (PCR) (NotDetected) Influenza Type B (PCR) (NotDetected) M. pneumoniae (PCR) (NotDetected) Parainfluenza 1 (PCR) (NotDetected) Parainfluenza 2 (PCR) (NotDetected) Parainfluenza 3 (PCR) (NotDetected) Parainfluenza 4 (PCR) (NotDetected) RSV (PCR) (NotDetected) Entero/Rhino (PCR) (NotDetected) Administered Medications Discontinued Medications Diphenhydramine HCl (Diphenhydramine 50 Mg/Ml Vial) 50 mg IV ONE ONE Stop: 08/12/24 14:47 Last Admin: 08/12/24 15:01 Dose: 50 mg Documented By: YNA Sodium Chloride (Nss) 500 mls @ 999 mls/hr IV .Q31M ONE Stop: 08/12/24 16:47 Last Admin: 08/12/24 16:31 Dose: 999 mls/hr Documented By: YAN Ioversol (Optiray 320 125ml) 120 ml IV ONCE ONE Stop: 08/12/24 15:23 Last Admin: 08/12/24 15:23 Dose: 120 ml Documented By: DAINA Methylprednisolone (Methylprednisolone 125 Mg/2 Ml Vial) 40 mg IV NOW ONE Stop: 08/12/24 14:47 Last Admin: 08/12/24 15:01 Dose: 40 mg Documented By: YAN Imaging Data Radiologist's Impression: Chest X-Ray 08/12/24 14:46 XR chest 1V portable CLINICAL HISTORY: stroke like symptoms COMPARISON STUDY: Chest radiograph April 22, 2024. FINDINGS: Lung volumes are normal. Lungs are clear. There is no pneumothorax or pleural effusion. Cardiac size is normal. Mediastinal contours are normal. There is no evidence for pulmonary edema. IMPRESSION: No acute cardiopulmonary findings. ACT 112: Negative or not required by law. Electronically signed by: Abisai Fraire M.D. 08/12/2024 3:[address] 08/12/24 14:46 CT head/brain wo con CLINICAL HISTORY: word finding difficuulties. TECHNIQUE: Multiple axial CT images of the head were obtained without contrast. A dose lowering technique was utilized adhering to the principles of ALARA. CT DOSE: 2481.64 mGy.cm COMPARISON: 04/22/2024 FINDINGS: No intracranial hemorrhage seen. No mass effect, midline shift, or hydrocephalus. There is stable moderate patchy periventricular hypodensity which is nonspecific but usually represents chronic small vessel ischemic changes. No skull fracture seen. Visualized paranasal sinuses and mastoid air cells are clear. IMPRESSION: No acute findings. ACT 112: Negative or not required by law. The above report was generated using voice recognition software. It may contain grammatical, syntax or spelling errors. Electronically signed by: Maximus Rojas M.D. 08/12/2024 3:40 PM Head CTA 08/12/24 14:46 CT angio head w con CLINICAL HISTORY: 64 years-old Female with word finding difficulities. Acute stroke like symptoms COMPARISON STUDY: Head CT of same day and CTA head 04/22/2024 TECHNIQUE: Unenhanced following the IV administration of 120 cc of Optiray, CT angiogram of the brain was performed from the skull base to the vertex. Images are reviewed in the axial, sagittal, and coronal planes. 3-D MIPS images are created and assessed. IV contrast was administered without complication. All measurements were obtained according to NASCET criteria. A dose lowering technique was utilized adhering to the principles of ALARA. FINDINGS: CT BRAIN: Dictated separately. Involutional changes with chronic microvascular ischemic disease. CT ANGIOGRAM OF THE BRAIN: The imaged bilateral internal carotid arteries are patent. The bilateral anterior and middle cerebral arteries are also patent. The vertebrobasilar system and posterior cerebral arteries are widely patent. The origin of the left posterior cerebral artery. There is no aneurysm, high-grade stenosis, or proximal branch occlusion identified. Dural sinuses appear patent. IMPRESSION: Unremarkable CTA of the head. ACT 112: Negative or not required by law. The above report was generated using voice recognition software. It may contain grammatical, syntax or spelling errors. Electronically signed by: Harjeet Ken M.D. 08/12/2024 3:45 PM Neck CTA 08/12/24 14:46 CT ANGIOGRAPHY OF THE NECK WITH CONTRAST CLINICAL HISTORY: word finding difficulties COMPARISON STUDY: CTA of the neck June 15, 2022. Technique: CT angiography of the carotid and vertebral arteries was obtained using Optiray and 3D reconstruction on an independent workstation. NASCET criteria was utilized. Automated exposure control was utilized for the study. A dose lowering technique was utilized adhering to the principles of ALARA. Findings: This exam is mildly compromised by artifact. Visualized portions of the lung apices are unremarkable. There are no cervical spine fractures. There is no cervical lymphadenopathy. The bilateral common carotid, cervical internal carotid and vertebral arteries are patent. Moderate extrinsic narrowing of the left vertebral artery at the C6-C7 level due to osteophytic spurring is unchanged. There is mild plaque within the proximal left internal carotid artery without stenosis. There is no aneurysm or dissection within the neck. IMPRESSION: 1. No stenosis within the bilateral common carotid or cervical internal carotid arteries. Exam mildly compromised by artifact. 2. No change in moderate stenosis of the left vertebral artery at the C6-C7 level due to degenerative spurring of the cervical spine. ACT 112: Negative or not required by law. Electronically signed by: Abisai Fraire M.D. 08/12/2024 3:43 PM Discharge Plan Visit Data Chief Complaint: Hypertension Stated Complaint: AMS ED Provider: Gabby Reid Discharge Problem: Stroke-like symptoms, Acute hyponatremia, LOLIS (acute kidney injury) Forms Stand Alone Forms: My [facility] Prescriptions Prescriptions: No Action rosuvastatin 10 mg tablet See Rx Instructions .ROUTE .COMPLEX Qty: 90 3RF Dose Instruction: TAKE 1 TABLET BY MOUTH EVERY DAY Rx Instructions: TAKE 1 TABLET BY MOUTH EVERY DAY Repatha SureClick 140 mg/mL pen injector 140 mg subcut .[id number] Qty: 1 0RF ipratropium bromide 21 mcg (0.03 %) spray,non-aerosol See Rx Instructions .ROUTE .COMPLEX Qty: 30 5RF Rx Instructions: USE 1-2 SPRAYS EACH NOSTRIL 1-2 TIMES DAILY FOR POST NASAL DRIP; administer into each nostril citalopram 10 mg tablet 10 mg PO DAILY Qty: 90 3RF ketoconazole 2 % shampoo 1 applic topical .COMPLEX Qty: 120 2RF Rx Instructions: 1 applic topical to the scalp 2-3 times a week. Allow to sit on the scalp for 5 minutes before rinsing. betamethasone dipropionate 0.05 % ointment 1 applic topical BID PRN (Reason: itching) 14 Days Qty: 45 1RF Rx Instructions: Apply to affected areas on arms twice a day up to 14 days as needed. calcium carb-mag oxide-vit D3 400-167-133 mg-mg-unit tablet 1 tab PO BID coenzyme Q10 100 mg capsule 100 mg PO QAM aspirin [Adult Low Dose Aspirin] 81 mg tablet,delayed release (DR/EC) 81 mg PO DAILY multivitamin [Daily Multi-Vitamin] Tablet 1 tab PO BID omega-3 fatty acids [Fish Oil Concentrate] 1,000 mg capsule 1,000 mg PO DAILY Prevnar 20 (PF) 0.5 mL syringe 0.5 ml IM ONCE Qty: 0.5 0RF Neilmed Sinus Rinse Complete Packet With Rinse Device See Rx Instructions .Route .COMPLEX Qty: 50 3RF Rx Instructions: use daily; fluticasone propionate 50 mcg/actuation spray,suspension 1 spray intranasal DAILY Qty: 16 11RF Rx Instructions: administer into each nostril sumatriptan succinate 50 mg tablet See Rx Instructions PO .COMPLEX Qty: 10 1RF Rx Instructions: take 1 tab at onset of headache; if no relief may repeat 1 tab after at least 2 hrs; max = 4 tabs/24 hr PO ondansetron 4 mg tablet,disintegrating 4 mg PO Q8H PRN (Reason: nausea and vomiting) Qty: 10 1RF metronidazole 0.75 % gel 1 applic topical .COMPLEX Qty: 45 0RF Rx Instructions: 1 applic topically one applicator at night for 5 days.; Referrals Referrals: Eugene Sutton, [Primary Care Provider] -
[2024-08-12] MEDS: diphenhydrAMINE 50 MG/ML VIAL IV ONE (15:01)
[2024-08-12] MEDS: methylPREDNISolone 125 MG/2 ML VIAL IV ONE (15:01)
[2024-08-12 15:07] LABS: iSTAT Creatinine 1.3 mg/dl (0.6-1.3); iSTAT Hemoglobin 13.6 g/dl (12.0-16.0); iSTAT Ionized Calcium 1.14 mmol/l (1.12-1.32); iSTAT Potassium 3.5 mmol/L (3.3-5.0)
[2024-08-12 15:13] LABS: Hematocrit (blood only) 38.4 % (37.0-47.0); Hemoglobin 13.4 g/dl (12.0-16.0); Mean Corpuscular Hemoglobin 30.3 pg (25.0-34.0); Mean Corpuscular Hgb Conc 34.9 g/dL (32.0-36.0); Mean Corpuscular Volume 86.9 fL (80.0-100.0); Mean Platelet Volume 10.2 fL (9.4-12.4); Platelet Count 253 K/uL (130-400); RDW Coefficient of Variation 12.8 % (11.5-14.5); RDW Standard Deviation 40.8 fL (36.4-46.3); Red Blood Count 4.42 M/uL (4.20-5.40); White Blood Count 3.97 K/ul (4.8-10.8)
--- NOTE | 2024-08-12 15:13 | XRay Report ---
XR chest 1V portable CLINICAL HISTORY: stroke like symptoms COMPARISON STUDY: Chest radiograph April 22, 2024. FINDINGS: Lung volumes are normal. Lungs are clear. There is no pneumothorax or pleural effusion. Car diac size is normal. Mediastinal contours are normal. There is no evidence for pulmonary edema. IMPRESSION: No acute cardiopulmonary findings. ACT 112: Negative or not required by law. Electronically signed by: Abisai Fraire M.D. 08/12/2024 3:12 PM
--- NOTE | 2024-08-12 15:21 | Electrocardiogram Report ---
Test Reason : Blood Pressure : */* mmHG Vent. Rate : 73 BPM Atrial Rate : 73 BPM P-R Int : 150 ms QRS Dur : 82 ms QT Int : 378 ms P-R-T Axes : 34 29 31 degrees QTcB Int : 416 ms Normal sinus rhythm Low voltage QRS Borderline ECG When compared with ECG of 22-Apr-2024 19:15, Criteria for Anterior infarct are no longer Present Confirmed by Michael Gomes ([id number]) on 08/12/2024 3:20:41 PM Referred By: Confirmed By: Michael Gomes
[2024-08-12] MEDS: OPTIRAY 320 125ml IV ONE (15:23)
[2024-08-12 15:34] LABS: Albumin Globulin Ratio 1.6 (0.9-2); Albumin Level 4.4 gm/dl (3.4-5.0); BUN Creatinine Ratio 10.9 (10-20); Bilirubin,Total 0.4 mg/dl (0.2-1.0); Calcium 9.3 mg/dl (8.6-10.3); Creatinine Clr Calc Pharmacy 45.7 ml/min; Globulin 2.8 gm/dl (2.5-4.0); Magnesium 1.7 mg/dl (1.7-2.4); Potassium 3.5 mmol/L (3.5-5.1); Total Protein 7.2 gm/dl (6.0-8.3)
--- NOTE | 2024-08-12 15:41 | CT Scan Report ---
CT head/brain wo con CLINICAL HISTORY: word finding difficuulties. TECHNIQUE: Multiple axial CT images of the head were obtained without contrast. A dose lowering tech nique was utilized adhering to the principles of ALARA. CT DOSE: 2481.64 mGy.cm COMPARISON: 04/22/2024 FINDINGS: No intracranial hemorrhage seen. No mass effect, midline shift, or hydrocephalus. There is stable moderate patchy periventricular hypodensity which is nonspecific but usually represents chroni c small vessel ischemic changes. No skull fracture seen. Visualized paranasal sinuses and mastoid air cells are clear. IMPRESSION: No acute findings. ACT 112: Negative or not required by law. The above report was generated using voice recognition software. It may contain grammatical, syntax o r spelling errors. Electronically signed by: Maximus Rojas M.D. 08/12/2024 3:40 PM
[2024-08-12 15:44] LABS: INR 1.3 (0.9-1.1); Partial Thromboplastin Ratio 1.2; Partial Thromboplastin Time 31 Seconds (21-31); Prothrombin Time 13.7 Seconds (9.0-12.0)
--- NOTE | 2024-08-12 15:45 | CT Scan Report ---
CT ANGIOGRAPHY OF THE NECK WITH CONTRAST CLINICAL HISTORY: word finding difficulties COMPARISON STUDY: CTA of the neck June 15, 2022. Technique: CT angiography of the carotid and vertebral arteries was obtained using Optiray and 3D rec onstruction on an independent workstation. NASCET criteria was utilized. Automated exposure control was utilized for the study. A dose lowering technique was utilized adhering to the principles of ALA RA. Findings: This exam is mildly compromised by artifact. Visualized portions of the lung apices are unr emarkable. There are no cervical spine fractures. There is no cervical lymphadenopathy. The bilateral common carotid, cervical internal carotid and vertebral arteries are patent. Moderate extrinsic narr owing of the left vertebral artery at the C6-C7 level due to osteophytic spurring is unchanged. There is mild plaque within the proximal left internal carotid artery without stenosis. There is no aneury sm or dissection within the neck. IMPRESSION: 1. No stenosis within the bilateral common carotid or cervical internal carotid arteries. Exam mildly compromised by artifact. 2. No change in moderate stenosis of the left vertebral artery at the C6-C7 level due to degenerative spurring of the cervical spine. ACT 112: Negative or not required by law. Electronically signed by: Abisai Fraire M.D. 08/12/2024 3:43 PM
--- NOTE | 2024-08-12 15:47 | CT Scan Report ---
CT angio head w con CLINICAL HISTORY: 64 years-old Female with word finding difficulities. Acute stroke like symptoms COMPARISON STUDY: Head CT of same day and CTA head 04/22/2024 TECHNIQUE: Unenhanced following the IV administration of 120 cc of Optiray, CT angiogram of the brain was performed from the skull base to the vertex. Images are reviewed in the axial, sagittal, and cor onal planes. 3-D MIPS images are created and assessed. IV contrast was administered without complicat ion. All measurements were obtained according to NASCET criteria. A dose lowering technique was utili zed adhering to the principles of ALARA. FINDINGS: CT BRAIN: Dictated separately. Involutional changes with chronic microvascular ischemic disease. CT ANGIOGRAM OF THE BRAIN: The imaged bilateral internal carotid arteries are patent. The bilateral anterior and middle cerebral arteries are also patent. The vertebrobasilar system and posterior cerebral arteries are widely mcmullen nt. The origin of the left posterior cerebral artery. There is no aneurysm, high-grade stenosis, or p roximal branch occlusion identified. Dural sinuses appear patent. IMPRESSION: Unremarkable CTA of the head. ACT 112: Negative or not required by law. The above report was generated using voice recognition software. It may contain grammatical, syntax o r spelling errors. Electronically signed by: Harjeet Ken M.D. 08/12/2024 3:45 PM
[2024-08-12] MEDS: SODIUM CHLORIDE 0.9% 500 ML IV ONE (16:31)
[2024-08-12 17:02] LABS: Adenovirus PCR Not Detected (NotDetected); Bordetella parapertussis PCR Not Detected (NotDetected); Bordetella pertussis PCR Not Detected (NotDetected); Chlamydia pneumoniae PCR Not Detected (NotDetected); Coronavirus 229E PCR Not Detected (NotDetected); Coronavirus CoV-2 (COVID19)PCR Not Detected (NotDetected); Coronavirus HKU1 PCR Not Detected (NotDetected); Coronavirus NL63 PCR Not Detected (NotDetected); Coronavirus OC43PCR Not Detected (NotDetected); Human Metapneumovirus PCR Not Detected (NotDetected); Influenza A PCR Not Detected (NotDetected); Influenza B PCR Not Detected (NotDetected); Mycoplasma pneumoniae PCR Not Detected (NotDetected); Parainfluenza Virus 1 PCR Not Detected (NotDetected); Parainfluenza Virus 2 PCR Not Detected (NotDetected); Parainfluenza Virus 3 PCR Not Detected (NotDetected); Parainfluenza Virus 4 PCR Not Detected (NotDetected); Respiratory Syncytial VirusPCR Not Detected (NotDetected); Rhinovirus/Enterovirus PCR Not Detected (NotDetected)
[2024-08-12 17:05] LABS: Troponin I High Sensitivity 9.6 pg/ml (0-14)
[2024-08-12 17:12] LABS: Thyroid Stimulating Hormone 1.551 uIu/ml (0.300-4.500)
--- NOTE | 2024-08-12 17:26 | History & Physical Report ---
Date of Service August 12, 2024 Assessment & Plan (1) Acute hyponatremia: (2) Dysarthria: (3) PAF (paroxysmal atrial fibrillation): (4) Coronary artery disease: Plan 64-year-old female with a past history of hyperlipidemia on Repatha, A-fib not on anticoagulation, hypertension, anxiety, and CAD with history of CLARISA 05/2019 denies clinical CHF, and chronic migraine/headaches who presents with intermittent word finding difficulty, some dysarthria and waxing waning confusion over the preceding 4 days. She is hyponatremic. DDx includes TIA/CVA, complex migraine, and symptomatic hyponatremia? Polydipsia. Word-finding difficulties, confusion - DDx includes TIA/CVA, migraine, and symptomatic hyponatremia Intermittent over the last 4 days. NIHSS 0 on ER exam, patient does have dysarthria on hospitalist exam NIHSS 1. Otherwise no focal deficits strength, sensation, coordination are all intact in upper and lower extremities. No cranial nerve deficits CThead: No acute findings - CTAhead/neck: No acute findings -Hyponatremia management as noted Patient is at increased risk with a history of hyperlipidemia on Repatha, history of hypertension, and prior ischemic events. Will treat with Plavix and continued DAPT. Reviewed with neurology, agree with DAPT and continuing treatment for hyponatremia as below. Ultimately will need an MRI when this is available. If worsening w order interval CT scan Hyponatremia, suspect polydipsia Patient reports she drinks multiple pints of water before breakfast, throughout the day, and at least 1 before bed. She denies increased thirst but notes she just likes the taste of water. 126 on admission. Serum osmolality is low BioFire negative No signs or symptoms of pneumonia No diarrhea/constipation/GI losses Urine sodium pending. If urine sodium is conserved can add salt tablets. If urine sodium is elevated consistent with SIADH then continue fluid restriction - She does have significant dysarthria on exam struggle some word finding and degree of her symptoms seems disproportionate from relatively mild hyponatremia. Will continue to treat this, but high concern for TIA/CVA Hx [place] with PCI in 1999, Hx p afib - s/p PCI - NO chest pain - Continue home meds - not on anticoag due to hx of dysmenorrhea Diet: Liberalized regular with fluid restriction 1300 cc Disposition: M/T CODE STATUS: Full code DVT prophylaxis: SCDs, may add Lovenox 2/5 if no large territory infarct and otherwise appears well. patient have history of dysfunctional uterine bleeding although tolerated ASA/Plavix well in the past. History of Present Illness Primary Care Provider: Eugene Sutton DO Jazzy is a 64-year-old female with a past medical history of paroxysmal atrial fibrillation not on anticoagulation, hyperlipidemia, spinal stenosis, palpitations, hypertension who presents with confusion, word finding difficulties, and an oral like sensation similar to prior migraine but without an actual headache over the last 4 days. She has had blurry vision, right lower extremity weakness, and waxing and waning symptoms for the last 4 days. Patient was not felt to be a TNK candidate given NIH stroke scale of 0 on arrival and intermittent symptoms over several days. She is not a candidate for intravascular procedures given normal angios. Differential was thought to be TIA/CVA and hyponatremia. She was recommended for further admission and workup. Jazzy reports over the weekend she felt 'off' and had difficulty speaking. [place] like she did with a migraine except no hedache, and had trouble finding her words. completely resolved after a few hours, but symptoms occured again the next day. Took he rmigraine medication which seemed to help, but then symptoms again recurred in the evening when having dinner with a friend. Came out of [facility] but felt acutely disoriented and very confused. OVerall thought it felt similar to migraine, bu tno headache and having more speech difficulty than usual. Has felt weakner lately in her arms bilaterally, noticed this more sunday. Today has noticed some numbness/tingling in both arms. No numbness/tingling currently. Strength and sensation currently feel normal in arms and legs bilaterally. Hx L4-S1 disease and some pain intermittently but no pain currently. Had a similar episode 1.5 months ago which felt similar and lasted 4 days. Sunday lasted 12-8pm then resolved. Speech has never returned completely to baseline since the weekend. +dysarthria, +word finding difficulty Takes aspirin 81mg daily. Took aspirin today Pt drinks 'oh my god, a ton of water.' 3 pints of water before breakfast, 3 cups of coffee. Throughout the day will drink 5-6 glasses of water through the day. in the evening will have a soda. Will have a glass of water before bed sometimes in the evening. "I just enjoy water, I don't have enquenchable thirst I just enjoy drinking water.". Feels thirsty at time of assessment History of high lipoprotein levels on Repatha Medical History: Reviewed Medications: Reviewed Surgical History: Reviewed Family history: Reviewed Allergies: Reviewed Social History: No tobacco,rare social EOTH use Code Status: Full Allergies Allergy/AdvReac Type Severity Reaction Status Date / Time iodine Allergy Intermediate rash Verified 07/31/24 12:55 adhesive Allergy Mild SKIN Verified 07/31/24 12:55 IRRITATION latex Allergy Unknown Unknown Verified 07/31/24 12:55 No Known Drug Allergies Allergy Verified 07/31/24 12:55 Home Medications Medication Instructions Recorded Confirmed Type calcium 400 mg 1 tab PO HS 04/01/19 08/12/24 History (carbonate)-magnesium 167 mg (oxide)-D3 133 unit tablet coenzyme Q10 100 mg capsule 100 mg PO QAM 04/01/19 08/12/24 History aspirin 81 mg tablet,delayed 81 mg PO QAM 09/30/20 08/12/24 History release (Adult Low Dose Aspirin) multivitamin (Daily Multi-Vitamin 1 tab PO UD 09/30/20 08/12/24 History tablet) omega-3 fatty acids 1,000 mg 1,000 mg PO HS 11/12/20 08/12/24 History capsule (Fish Oil Concentrate) betamethasone dipropionate 0.05 % 1 applic topical BID PRN itching 08/17/23 08/12/24 Rx topical ointment 14 days #45 grams sodium chloride, sodium See Rx Instructions .Route 01/03/24 08/12/24 Rx bicarb-nasal rinse squeeze bottle .COMPLEX #50 ea with packet (Neilmed Sinus Rinse Complete with packet) ondansetron 4 mg disintegrating 4 mg PO Q8H PRN nausea and 04/29/24 08/12/24 Rx tablet vomiting #10 tabs evolocumab 140 mg/mL subcutaneous 140 mg subcut .[id number] #1 mL 06/02/24 08/12/24 Rx pen injector (Liv Frederick) citalopram 10 mg tablet 10 mg PO HS 08/12/24 08/12/24 History fluticasone propionate 50 1 spray intranasal DAILY PRN Other 08/12/24 08/12/24 History mcg/actuation nasal spray,suspension ipratropium bromide 21 mcg (0.03 1 - 2 spray intranasal .1-2X DAILY 08/12/24 08/12/24 History %) nasal spray ketoconazole 2 % shampoo 1 applic topical .COMPLEX PRN Other 08/12/24 08/12/24 History metronidazole 0.75 % topical gel 1 applic topical UD 08/12/24 08/12/24 History rosuvastatin 10 mg tablet 10 mg PO QAM 08/12/24 08/12/24 History sumatriptan succinate 50 mg tablet 50 mg PO DAILY PRN Migraine 08/12/24 08/12/24 History Headache Past Med/Surg History Problem List (Updated 08/12/24 @ 16:27 by Gabby Reid MD) LOLIS (acute kidney injury) (Acute) Acute hyponatremia (Acute) Stroke-like symptoms (Acute) Vaginal odor Eye pressure Nasal trauma Chronic sinusitis Upper airway cough syndrome Cough Postmenopausal atrophic vaginitis Eczema Arthritis PAF (paroxysmal atrial fibrillation) Postmenopausal status Coronary artery disease s/p cardiac catheterization on 05/30/2019, single CLARISA to mid RCA Dyslipidemia Anxiety Spinal stenosis (Acute) Spondylolisthesis, acquired (Acute) Heart palpitations (Acute) HTN (hypertension) (Chronic) Medical History Nasal septal deviation Seborrheic keratosis Seborrheic dermatitis Rosacea Multiple benign nevi Milia Ganglion cyst of finger of right hand Dermatofibroma Carpal tunnel syndrome of right wrist Bunion of great toe Angioma Macular edema Migraine Dysfunctional uterine bleeding Anorexia nervosa Diverticulosis Hypercholesterolemia Finger fracture, left Surgical History S/P cardiac catheterization History of heart artery stent H/O foot surgery S/P tubal ligation S/P tonsillectomy H/O hand surgery History of dilation and curettage History of dental surgery History of colposcopy Cataract Family History Aunt Breast cancer Uncle Breast cancer Mother Heart disease Hypertension Kidney disease Myocardial infarction Sister Kidney disease Heart disease New onset a-fib Father Lung cancer Denies family history of Ovarian cancer Prostate cancer Colorectal cancer Social History Smoking Status: Never smoker Tobacco Type: Cigarettes Age Started Using Tobacco: 16; Age Quit Using Tobacco: 17; packs per day: 0.15; Second Hand Exposure: No; Do You Dip or Chew Tobacco: No; Hx Alcohol Use: Yes Alcohol type: wine Alcohol Intake Frequency: 2-3 x/Week Hx Substance Use: No Preferred Language: Tajik Communication Ability: Effective Visual Impairment: No Limitations Hearing Ability: Normal Soft Hat Binder Required: No Beliefs That Will Affect Care: None marital status: Current Living Situation: Spouse Current Living Situation Comment: [employer] Walter (Son) current occupational status: other current occupation: has rental properties How many Children do You have: 1 Feels Safe at Home: Yes Childhood Exposure to Second-Hand Smoke: Yes Diet: regular caffeine: Yes during the past year weight has: remained stable Dental Care, Regularly: Yes Physical Activity Frequency: 3-4 Times per Week Seatbelt Use: always Sunscreen Use: Yes Assistive Devices: Glasses Physical Exam Physical Exam: General: A&Ox3. NAD. Cooperative. Dysarthric HEENT: Atraumatic, normocephalic. Vision/hearing grossly intact. Pulm: CTAB A&P. -wheezes, -rales, -rhonchi. Symmetrical chest rise. No increased work of breathing. No respiratory distress. Cardiac: RRR, -mrg. Radial pulses intact and symmetrical. Abdominal: Nontender, nondistended, soft. BS present. CRANIAL NERVES: II: Pupils equal and reactive, no relative afferent pupillary defect, no VF cuts III, IV, : EOM intact, no gaze preference or deviation, no nystagmus. V: normal sensation in V1, V2, and V3 segments bilaterally VII: no asymmetry, no nasolabial fold flattening VIII: normal hearing to speech IX, X: normal palatal elevation, no uvular deviation XI: 5/5 head turn and 5/5 shoulder shrug bilaterally XII: midline tongue protrusion MOTOR: RUE: 5/5 Shoulder internal rotation, external rotation, flexion, extension, abduction, adduction 5/5 Elbow flexion/extension, wrist flexi on/extension 5/5 quality control engineering technician strength, finger flexion/extens ion, interosseus LUE: 5/5 Shoulder internal rotation, external rotation, flexion, extension, abduction, adduction 5/5 Elbow flexion/extension, wrist flexi on/extension 5/5 quality control engineering technician strength, finger flexion/extens ion, interosseus RLE: 5/5 to hip flexion knee flexion/extensio n, ankle dorsiflexion/plantarflexion LLE: 5/5 to hip flexion knee flexion/extensio n, ankle dorsiflexion/plantarflexion SENSORY: Normal to touch, pinprick, vibration, temp in upper and lower extremities without deficit or asymmetry No hemineglect, no extinction to double sided stimulation (visual & tactile) Romberg absent COORD: Normal finger to nose and heel to harding, no tremor, no dysmetria Results & Data Results & Data Vital Signs (Past 12 Hours) Vital Signs Temp Pulse Pulse Resp BP BP Pulse Ox 08/12/24 16:00 71 08/12/24 15:02 71 26 H 177/126 H 97 08/12/24 14:34 36.8 C 71 20 186/116 H 99 O2 Del Method 08/12/24 16:00 08/12/24 15:02 08/12/24 14:34 Room Air PG Care Time/CCT Total # of Minutes Spent Total Time Spent with Patient: Total time spent is greater than 50% in coordination of care (as documented) at patient's floor/unit and/or counseling patient: Coding Level of Care Code 65823 INT INP/OBS CARE 3/75MIN Diagnoses Acute hyponatremia E87.1 Dysarthria R47.1 PAF (paroxysmal atrial fibrillation) I48.0 Coronary artery disease I25.10
[2024-08-12] MEDS ORDERED: ACETAMINOPHEN 325 MG TAB PO PRN (20:17)
[2024-08-12 21:36] LABS: Anion Gap 6 (3-11); BUN Creatinine Ratio 10.5 (10-20); Blood Urea Nitrogen 12 mg/dl (6-23); Calcium 9.4 mg/dl (8.6-10.3); Carbon Dioxide 26 mmol/L (21-32); Chloride 96 mmol/L (98-107); Glucose 133 mg/dl (70-99(Fasting)); Sodium 128 mmol/L (136-145)
[2024-08-12] MEDS: CITALOPRAM 20 MG TAB PO SCH (22:51)
[2024-08-13 01:25] LABS: Calcium 9.8 mg/dl (8.6-10.3); Creatinine Clr Calc Pharmacy 52.9 ml/min; Potassium 4.3 mmol/L (3.5-5.1)
[2024-08-13 04:35] VITALS: TEMP 97.7
[2024-08-13 04:46] LABS: Basophils # (auto) 0.04 K/uL (0.00-0.20); Basophils % (auto) 1.1 %; Eosinophils # (auto) 0.07 K/uL (0.00-0.50); Eosinophils % (auto) 1.9 %; Hematocrit (blood only) 41.6 % (37.0-47.0); Hemoglobin 14.3 g/dl (12.0-16.0); Lymphocytes # (auto) 1.42 K/uL (1.20-3.40); Lymphocytes % (auto) 39.2 %; Mean Corpuscular Hemoglobin 29.8 pg (25.0-34.0); Mean Corpuscular Hgb Conc 34.4 g/dL (32.0-36.0); Mean Corpuscular Volume 86.7 fL (80.0-100.0); Mean Platelet Volume 9.7 fL (9.4-12.4); Monocytes % (auto) 13.8 %; Neutrophils # (auto) 1.59 K/uL (1.40-6.50); Platelet Count 294 K/uL (130-400); RDW Coefficient of Variation 12.8 % (11.5-14.5); RDW Standard Deviation 40.7 fL (36.4-46.3); White Blood Count 3.62 K/ul (4.8-10.8)
[2024-08-13 04:59] LABS: BUN Creatinine Ratio 9.6 (10-20); Calcium 10.2 mg/dl (8.6-10.3); Creatinine Clr Calc Pharmacy 50.6 ml/min
[2024-08-13 07:44] VITALS: RESP 16
--- NOTE | 2024-08-13 07:54 | Hospitalist Progress Note ---
Date of Service August 13, 2024 Assessment & Plan (1) Acute hyponatremia: (2) Dysarthria: (3) PAF (paroxysmal atrial fibrillation): (4) Coronary artery disease: Plan 64-year-old female with a past history of hyperlipidemia on Repatha, A-fib not on anticoagulation, hypertension, anxiety, and CAD with history of CLARISA 05/2019 denies clinical CHF, and chronic migraine/headaches who presents with intermittent word finding difficulty, some dysarthria and waxing waning confusion over the preceding 4 days. She is hyponatremic. DDx includes TIA/CVA, complex migraine, and symptomatic hyponatremia? Polydipsia. Word-finding difficulties, confusion - DDx includes TIA/CVA, migraine, and symptomatic hyponatremia Intermittent over the last 4 days. NIHSS 0 on ER exam, patient does have dysarthria on hospitalist exam NIHSS 1. Otherwise no focal deficits strength, sensation, coordination are all intact in upper and lower extremities. No cranial nerve deficits CThead: No acute findings - CTAhead/neck: No acute findings -Hyponatremia management as noted Patient is at increased risk with a history of hyperlipidemia on Repatha, history of hypertension, and prior ischemic events. Will treat with Plavix and continued DAPT. Reviewed with neurology, agree with DAPT and continuing treatment for hyponatremia as below. Ultimately will need an MRI when this is available. If worsening w order interval CT scan Check ECHO w/ bubble Hyponatremia, suspect polydipsia Patient reports she drinks multiple pints of water before breakfast, throughout the day, and at least 1 before bed. She denies increased thirst but notes she just likes the taste of water. She is on citalopram 10mg daily, but no other significant medications to cause hyponatremia Na 126 on admission. Serum osmolality is low BioFire negative No signs or symptoms of pneumonia No diarrhea/constipation/GI losses Urine sodium pending.--> urine osm 248, urine Na 58. On fluid restrictions 1200cc/daily If urine sodium is conserved can add salt tablets. If urine sodium is elevated consistent with SIADH then continue fluid restriction NA improved 132, continue to monitor. TSH wnl - She did have significant dysarthria on exam struggle some word finding and degree of her symptoms seems disproportionate from relatively mild hyponatremia. Will continue to treat this, but high concern for TIA/CVA Hx [place] with PCI in 1999, Hx p afib - s/p PCI - NO chest pain - Continue home meds - not on anticoag due to hx of dysmenorrhea repeat mag w/ labs from today, 1.7 on admission. Will order 1gm IV for now/additional to keep closer to 2 pending results. EKG on admission w/ NSR. TSH wl Notable patient w/ [facility] appt in July, noted atrophy --> cx w/ Ecoli Note communication note from [employer] [employer] w/ rx for Bactrim DS BID x 7 days (which would have ended08/11) Diet: Liberalized regular with fluid restriction 1300 cc Disposition: M/T CODE STATUS: Full code DVT prophylaxis: SCDs, may add Lovenox 2/5 if no large territory infarct and otherwise appears well. patient have history of dysfunctional uterine bleeding although tolerated ASA/Plavix well in the past. Admission and Anticipated Discharge Date Admission Date: August 12, 2024 Results & Data Results & Data Vital Signs (Past 12 Hours) Vital Signs Temp Pulse Pulse Resp BP BP Pulse Ox 08/13/24 07:43 95 H 16 127/91 94 08/13/24 07:12 57 L 08/13/24 04:34 36.5 C 60 19 124/77 96 08/12/24 23:31 67 08/12/24 23:00 36.6 C 67 23 127/76 96 08/12/24 23:00 08/12/24 22:30 71 22 144/90 H 92 08/12/24 21:00 73 24 142/86 H 93 08/12/24 20:32 75 26 H 167/96 H 95 08/12/24 20:25 88 20 163/88 H 95 08/12/24 20:17 08/12/24 20:00 68 20 163/88 H 98 Pulse Ox O2 Del Method O2 Del Method 08/13/24 07:43 Room Air 08/13/24 07:12 08/13/24 04:34 Room Air 08/12/24 23:31 08/12/24 23:00 Room Air 08/12/24 23:00 96 Room Air 08/12/24 22:30 Room Air 08/12/24 21:00 Room Air 08/12/24 20:32 Room Air 08/12/24 20:25 Room Air 08/12/24 20:17 95 Room Air 08/12/24 20:00 Room Air PG Care Time/CCT Total # of Minutes Spent Total Time Spent with Patient: Total time spent is greater than 50% in coordination of care (as documented) at patient's floor/unit and/or counseling patient: Coding Diagnoses Acute hyponatremia E87.1 Dysarthria R47.1 PAF (paroxysmal atrial fibrillation) I48.0 Coronary artery disease I25.10
[2024-08-13] MEDS: ROSUVASTATIN CALCIUM 10 MG TAB PO SCH (09:20)
[2024-08-13] MEDS: CLOPIDOGREL BISULFATE 75 MG TAB PO SCH (09:21)
[2024-08-13] MEDS: ASPIRIN 81 MG ECTAB PO SCH (09:21)
[2024-08-13] MEDS: FLUTICASONE PROPIONATE NA SPR 16 GM BTL NAE SCH (09:21)
[2024-08-13] MEDS: MAGNESIUM SULFATE / D5W 1 GM/100 ML BAG IV ONE (09:24)
--- NOTE | 2024-08-13 12:28 | Discharge Summary ---
Discharge Summary Date of Service August 13, 2024 Principal Dx & Hospital Course #1 = Principal Diagnosis (1) Acute hyponatremia: (2) Dysarthria: (3) PAF (paroxysmal atrial fibrillation): (4) Coronary artery disease: (5) LOLIS (acute kidney injury): Plan 64-year-old female with a past history of hyperlipidemia on Repatha, A-fib (not on anticoagulation 2nd to uterine bleeding), HTN, anxiety, CAD w/ hx CLARISA in 2019 on ASA, chronic migraine/headaches presented with intermittent word finding difficulty, some dysarthria and waxing waning confusion over the preceding 4 days. Found to be hyponatremic on admission w/ Na 126 and low serum osm. DDx TIA/CVA, complex migraine, symptomatic hyponatremia. Does report significant water intake, polydipsia not excluded. Biofire negative CT head aas well as CTA head/neck without acute findings. NIHSS 0 on ER exam, some dysarthria w/ NIHSS 1 for admission team but otherwise no focal deficits of strength/sensation and coordination intake. No CN deficits noted MRI brain not able to be completed however being arranged outpatient. Does have aura/hx of migraine, not excluded. ECHO w/ bubble ordered (not resulted prior to dc) -- results noting no significant change from 2020, LV sy stolic function normal 60-65%, no wma, LV wall motion is normal. RV is normal in size/function. mild MR. RVSP is normal. Discussed w/ Neurology on admission and rec w/ DAPT w/ ASA 81mg (already on) and Plavix 75mg daily. Continued at dc x 21 days, noting was on in the past. Rec discussion w/ PCP about switching from aspirin to plavix. Also was fluid restricted and Na improved to132 prior to discharge. TSH wnl, NSR on telemetry --Notable on citalopram 10mg daily as well which can contribute as well as increased free water intake. Also notable, patient had been given BACTRIM BID for ecoli from FINANCIAL ACCOUNTING ANALYST cx and was on this medication up until day of admission and can cause severe symptomatic hyponatremia and suspect this may have actually been what caused worsening hyponatremia on admission/symptoms. Cannot rule out polydipsia at baseline could have worsened such. Notable was found to drinking from sink per nursing in ER, does admit to excessive water intake at baseline and discussed limiting free water/increasing solutes/powerade/etc in follow up and rec for repeat BMP w/ PCP as well as ref to Neurology given hx migraines for consideration for verapamil for prevention vs other abortive therapies as has rx for sumatriptan prn at baseline. Also reports poor sleep lately and also rec improvement in sleep for sx. Stable mentation/wanting to go home. CM navigator to arrange for MRI brain as outpatient. To return to ER with any return/worsening of symptoms. Notes For Next Care Provider Rec repeat BMP/Mag this upcoming week to ensure stable. Encouraged less free water intake/increase solute intake Discussed w/ patient to note possible reaction to bactrim w/ symptomatic hypon atremia and would avoid use w/ this abx in the future but no rash/true allergic reaction/deferred adding to her allergy list at this time but could be considered Ensure f/u MRI brain as outpatient Consider switching from ASA to Plavix for prevention Rec ref to Neuro for consideration prevention medication for migraines, ?verapamil Medication Changes From Visit Plavix 75mg daily Admission HPI Per Admitting Provider Jazzy is a 64-year-old female with a past medical history of paroxysmal atrial fibrillation not on anticoagulation, hyperlipidemia, spinal stenosis, palpitations, hypertension who presents with confusion, word finding difficulties, and an oral like sensation similar to prior migraine but without an actual headache over the last 4 days. She has had blurry vision, right lower extremity weakness, and waxing and waning symptoms for the last 4 days. Patient was not felt to be a TNK candidate given NIH stroke scale of 0 on arrival and intermittent symptoms over several days. She is not a candidate for intravascular procedures given normal angios. Differential was thought to be TIA/CVA and hyponatremia. She was recommended for further admission and workup. Jazzy reports over the weekend she felt 'off' and had difficulty speaking. Pyote like she did with a migraine except no hedache, and had trouble finding her words. completely resolved after a few hours, but symptoms occured again the next day. Took he rmigraine medication which seemed to help, but then symptoms again recurred in the evening when having dinner with a friend. Came out of [place] but felt acutely disoriented and very confused. OVerall thought it felt similar to migraine, bu tno headache and having more speech difficulty than usual. Has felt weakner lately in her arms bilaterally, noticed this more sunday. Today has noticed some numbness/tingling in both arms. No numb ness/tingling currently. Strength and sensation currently feel normal in arms and legs bilaterally. Hx L4-S1 disease and some pain intermittently but no pain currently. Had a similar episode 1.5 months ago which felt similar and lasted 4 days. Sunday lasted 12-8pm then resolved. Speech has never returned completely to baseline since the weekend. +dysarthria, +word finding difficulty Takes aspirin 81mg daily. Took aspirin today Pt drinks 'oh my god, a ton of water.' 3 pints of water before breakfast, 3 cups of coffee. Throughout the day will drink 5-6 glasses of water through the day. in the evening will have a soda. Will have a glass of water before bed sometimes in the evening. "I just enjoy water, I don't have enquenchable thirst I just enjoy drinking water.". Feels thirsty at time of assessment History of high lipoprotein levels on Repatha Medical History: Reviewed Medications: Reviewed Surgical History: Reviewed Family history: Reviewed Allergies: Reviewed Social History: No tobacco,rare social EOTH use Code Status: Full Admission Exam Per Admitting Provider General: A&Ox3. NAD. Cooperative. Dysarthric HEENT: Atraumatic, normocephalic. Vision/hearing grossly intact. Pulm: CTAB A&P. -wheezes, -rales, -rhonchi. Symmetrical chest rise. No increased work of breathing. No respiratory distress. Cardiac: RRR, -mrg. Radial pulses intact and symmetrical. Abdominal: Nontender, nondistended, soft. BS present. CRANIAL NERVES: II: Pupils equal and reactive, no relative afferent pupillary defect, no VF cuts III, IV, : EOM intact, no gaze preference or deviation, no nystagmus. V: normal sensation in V1, V2, and V3 segments bilaterally VII: no asymmetry, no nasolabial fold flattening VIII: normal hearing to speech IX, X: normal palatal elevation, no uvular deviation XI: 5/5 head turn and 5/5 shoulder shrug bilaterally XII: midline tongue protrusion MOTOR: RUE: 5/5 Shoulder internal rotation, external rotation, flexion, extension, abduction, adduction 5/5 Elbow flexion/extension, wrist flexion/extension 5/5 business services sales agent strength, finger flexion/extension, interosseus LUE: 5/5 Shoulder internal rotation, external rotation, flexion, extension, abduction, adduction 5/5 Elbow flexion/extension, wrist flexion/extension 5/5 business services sales agent strength, finger flexion/extension, interosseus RLE: 5/5 to hip flexion knee flexion/extension, ankle dorsiflexion/plantarflexion LLE: 5/5 to hip flexion knee flexion/extension, ankle dorsiflexion/plantarflexion SENSORY: Normal to touch, pinprick, vibration, temp in upper and lower extremities without deficit or asymmetry No hemineglect, no extinction to double sided stimulation (visual & tactile) Romberg absent COORD: Normal finger to nose and heel to harding, no tremor, no dysmetria Discharge Exam General: 64yo female ambulating in the room, initially laying in bed, aura of migraine but much improved, NAD/wanting to go home HEENT: head atraumatic, normocephalic, mmm, pupils equal in size/reactive, trachea midline Resp: even/unlabored, no wheezing/rales, no cough, on room air CV: NSR on telemetry, rates stable, no significant m/r/g, no pitting edema GI: +BS, soft/NT : no lopez, voiding in bathroom MSK/Neuro: full strength, no slurred speech, coordination intact/ambulating in the room, no focal loss of strength, no confusion, speech clear/no slurred speech, no further dysarthria Psych: AOx3, cooperative, anxious at times but wanting to go home Discharge Plan Discharge Items Patient Disposition: Home - Self-Care Reason For Visit: DYSARTHRIA, CONFUSION, HYPONATREMIA Discharge Diagnosis: Dysarthria, Hyponatremia, ?migraine vs other Goals: You have been hospitalized for an acute medical problem. During your stay at [facility], we have made an effort to correct the problem that brought you to the hospital while keeping you as comfortable as possible. Medications were used to bring your condition under control and your discharge instructions will include directions for any medications you should take after leaving the hospital. Please make sure you see your Primary Care Provider as part of your follow up plan. Activity: As commented below Non-emergency contact: Primary Care Provider Call non-emergency contact if: you have any medication questions, your symptoms worsen, your pain is not controlled, your pain is concerning for you and you have a fever Follow-up/Referrals: Chuck Cortez MD [Physician] - Eugene Sutton DO [Primary Care Provider] - Diet: Heart Healthy Addtl Attending Provider Instructions: You have been hospitalized for confusion and difficulty with word finding. CT head and neck were negative for acute stroke. Telemetry was without afib although you do have that history. We have placed you on Aspirin/Plavix and are continuing dual therapy for 21 days and recommend discussing with primary care about continuing solo agent with Plavix over aspirin in follow up. It could be related to low sodium from excessive water intake as discussed and recommend decreasing free water intake and increasing your oral intake with powerade/gatorade/etc to prevent diluting sodium level. This could also be related to migraine and recommend getting good sleep but also working to arrange outpatient follow up with Neurology as you may benefit from medications for migraine in the future if recurrence. We are arranging for outpatient MRI which was unable to be completed while in patient. Please follow up with primary care in the next 7-10 days to monitor your progress. I recommend having repeat BMP (chemistries) this upcoming week on Sunday or Sunday to make sure your sodium level has improved/staying stable. Please return to the ER with any repeat confusion, fever/chills, chest pain, shortness of breath or for any other symptoms concerning for you. Take care! Pending Studies at Discharge: No Stand-Alone Forms: [facility] Medications and DC Order Prescriptions: New clopidogrel 75 mg Tablet 75 mg PO QAM Qty: 21 0RF Continued Repatha SureClick 140 mg/mL pen injector 140 mg subcut .[id number] Qty: 1 0RF betamethasone dipropionate 0.05 % ointment 1 applic topical BID PRN (Reason: itching) 14 Days Qty: 45 1RF Rx Instructions: Apply to affected areas on arms twice a day up to 14 days as needed. calcium carb-mag oxide-vit D3 [id number] mg-mg-unit tablet 1 tab PO HS coenzyme Q10 100 mg capsule 100 mg PO QAM aspirin [Adult Low Dose Aspirin] 81 mg tablet,delayed release (DR/EC) 81 mg PO QAM multivitamin [Daily Multi-Vitamin] Tablet 1 tab PO UD Rx Instructions: doesnt take it everyday. Takes po qam when she does take it omega-3 fatty acids [Fish Oil Concentrate] 1,000 mg capsule 1,000 mg PO HS Neilmed Sinus Rinse Complete Packet With Rinse Device See Rx Instructions .Route .COMPLEX Qty: 50 3RF Rx Instructions: use daily; ondansetron 4 mg tablet,disintegrating 4 mg PO Q8H PRN (Reason: nausea and vomiting) Qty: 10 1RF ketoconazole 2 % shampoo 1 applic topical .COMPLEX PRN (Reason: Other) Rx Instructions: 1 applic topical to the scalp 2-3 times a week. Allow to sit on the scalp for 5 minutes before rinsing. citalopram 10 mg tablet 10 mg PO HS sumatriptan succinate 50 mg tablet 50 mg PO DAILY MDD 4tabs PRN (Reason: Migraine Headache) Rx Instructions: take 1 tab at onset of headache; if no relief may repeat 1 tab after at least 2 hrs; max = 4 tabs/24 hr PO fluticasone propionate 50 mcg/actuation spray,suspension 1 spray intranasal DAILY PRN (Reason: Other) Rx Instructions: administer into each nostril metronidazole 0.75 % gel 1 applic topical UD Rx Instructions: hasnt started medication. 1 applic topically one applicator at night for 5 days.; ipratropium bromide 21 mcg (0.03 %) spray,non-aerosol 1 - 2 spray intranasal .1-2X DAILY Rx Instructions: USE 1-2 SPRAYS EACH NOSTRIL 1-2 TIMES DAILY FOR POST NASAL DRIP; administer into each nostril rosuvastatin 10 mg tablet 10 mg PO QAM Rx Instructions: TAKE 1 TABLET BY MOUTH EVERY DAY Discharge Orders: Discharge Order (Routine); Ordered 08/13/24 Ordered By: Loida Childers Admission Data Admit Date/Time: 08/12/24 17:57 Attending Provider: Pablo Garcia Admit Provider: Narciso Hernandez Primary Care Provider: Eugene Sutton Other Providers: Narciso Hernandez Other Interventions: Discharge Summary Assessment (RN) Last Done: 08/13/24 13:00 Hospital Stay Data Consultations 08/12/24 16:33 ED Decision to Admit Stat Diagnostic Imagining Performed Chest X-Ray 08/12/24 14:46 XR chest 1V portable CLINICAL HISTORY: stroke like symptoms COMPARISON STUDY: Chest radiograph April 22, 2024. FINDINGS: Lung volumes are normal. Lungs are clear. There is no pneumothorax or pleural effusion. Cardiac size is normal. Mediastinal contours are normal. There is no evidence for pulmonary edema. IMPRESSION: No acute cardiopulmonary findings. ACT 112: Negative or not required by law. Electronically signed by: Abisai Fraire M.D. 08/12/2024 3:[address] 08/12/24 14:46 CT head/brain wo con CLINICAL HISTORY: word finding difficuulties. TECHNIQUE: Multiple axial CT images of the head were obtained without contrast. A dose lowering technique was utilized adhering to the principles of ALARA. CT DOSE: 2481.64 mGy.cm COMPARISON: 04/22/2024 FINDINGS: No intracranial hemorrhage seen. No mass effect, midline shift, or hydrocephalus. There is stable moderate patchy periventricular hypodensity which is nonspecific but usually represents chronic small vessel ischemic changes. No skull fracture seen. Visualized paranasal sinuses and mastoid air cells are clear. IMPRESSION: No acute findings. ACT 112: Negative or not required by law. The above report was generated using voice recognition software. It may contain grammatical, syntax or spelling errors. Electronically signed by: Maximus Rojas M.D. 08/12/2024 3:40 PM Head CTA 08/12/24 14:46 CT angio head w con CLINICAL HISTORY: 64 years-old Female with word finding difficulities. Acute stroke like symptoms COMPARISON STUDY: Head CT of same day and CTA head 04/22/2024 TECHNIQUE: Unenhanced following the IV administration of 120 cc of Optiray, CT angiogram of the brain was performed from the skull base to the vertex. Images are reviewed in the axial, sagittal, and coronal planes. 3-D MIPS images are created and assessed. IV contrast was administered without complication. All measurements were obtained according to NASCET criteria. A dose lowering technique was utilized adhering to the principles of ALARA. FINDINGS: CT BRAIN: Dictated separately. Involutional changes with chronic microvascular ischemic disease. CT ANGIOGRAM OF THE BRAIN: The imaged bilateral internal carotid arteries are patent. The bilateral anterior and middle cerebral arteries are also patent. The vertebrobasilar system and posterior cerebral arteries are widely patent. The origin of the left posterior cerebral artery. There is no aneurysm, high-grade stenosis, or proximal branch occlusion identified. Dural sinuses appear patent. IMPRESSION: Unremarkable CTA of the head. ACT 112: Negative or not required by law. The above report was generated using voice recognition software. It may contain grammatical, syntax or spelling errors. Electronically signed by: Harjeet Ken M.D. 08/12/2024 3:45 PM Neck CTA 08/12/24 14:46 CT ANGIOGRAPHY OF THE NECK WITH CONTRAST CLINICAL HISTORY: word finding difficulties COMPARISON STUDY: CTA of the neck June 15, 2022. Technique: CT angiography of the carotid and vertebral arteries was obtained using Optiray and 3D reconstruction on an independent workstation. NASCET criteria was utilized. Automated exposure control was utilized for the study. A dose lowering technique was utilized adhering to the principles of ALARA. Findings: This exam is mildly compromised by artifact. Visualized portions of the lung apices are unremarkable. There are no cervical spine fractures. There is no cervical lymphadenopathy. The bilateral common carotid, cervical internal carotid and vertebral arteries are patent. Moderate extrinsic narrowing of the left vertebral artery at the C6-C7 level due to osteophytic spurring is unchanged. There is mild plaque within the proximal left internal carotid artery without stenosis. There is no aneurysm or dissection within the neck. IMPRESSION: 1. No stenosis within the bilateral common carotid or cervical internal carotid arteries. Exam mildly compromised by artifact. 2. No change in moderate stenosis of the left vertebral artery at the C6-C7 level due to degenerative spurring of the cervical spine. ACT 112: Negative or not required by law. Electronically signed by: Abisai Fraire M.D. 08/12/2024 3:43 PM ECHOCARDIOGRAM 08/13/2024 Compared with 10/12/2020 study, no significant change. Injection of contrast documented NO interatrial shunt. LV systolic function is normal The left ventricular wall motion is normal. The right ventricle is normal in size and function. There is mild mitral regurgitation RVSP is normal Discharge Instructions Given to Patient (Per Discharging Provider) You have been hospitalized for confusion and difficulty with word finding. CT head and neck were negative for acute stroke. Telemetry was without afib although you do have that history. We have placed you on Aspirin/Plavix and are continuing dual therapy for 21 days and recommend discussing with primary care about continuing solo agent with Plavix over aspirin in follow up. It could be related to low sodium from excessive water intake as discussed and recommend decreasing free water intake and increasing your oral intake with powerade/gatorade/etc to prevent diluting sodium level. This could also be related to migraine and recommend getting good sleep but also working to arrange outpatient follow up with Neurology as you may benefit from medications for migraine in the future if recurrence. We are arranging for outpatient MRI which was unable to be completed while inpatient. Please follow up with primary care in the next 7-10 days to monitor your progress. I recommend having repeat BMP (chemistries) this upcoming week on Sunday or Sunday to make sure your sodium level has improved/staying stable. Please return to the ER with any repeat confusion, fever/chills, chest pain, shortness of breath or for any other symptoms concerning for you. Take care! Supervising Physician Co-Signing Physician Notes The patient was not seen by me. The chart was reviewed. Case discussed with LAURA Albright. Agree with assessment and plan Total Time Total Time Spent Total Time Spent (In Minutes): 45 Coding Level of Care Code 83419 INP/OBS DISCH >30 MIN Diagnoses Acute hyponatremia E87.1 Dysarthria R47.1 PAF (paroxysmal atrial fibrillation) I48.0 Coronary artery disease I25.10 LOLIS (acute kidney injury) N17.9
[2024-08-13 13:04] VITALS: BP 121/80; PULSE 81; O2SAT 96
--- NOTE | 2024-08-13 15:05 | XCELERA ---
[id number] [id number]
== END 2024-08-13 14:07 | disposition home or self-care (01) | DRG 641 ==
LOC: ED 14:27 → SUATTDRO 17:57 → INTOOBSV 17:57 → EDINP 17:57

== ENCOUNTER 2025-03-18 11:20 | Observation (INO) ==
[2025-03-18] MEDS: OPTIRAY 320 125ml IV ONE (11:42)
[2025-03-18 12:06] LABS: Hematocrit (blood only) 38.6 % (37.0-47.0); Hemoglobin 13.0 g/dl (12.0-16.0); Immature Granulocytes # (auto) 0.01 K/uL (0.01-0.20); Immature Granulocytes % (auto) 0.1 %; Mean Corpuscular Hemoglobin 29.7 pg (25.0-34.0); Mean Corpuscular Volume 88.1 fL (80.0-100.0); Platelet Count 285 K/uL (130-400); RDW Standard Deviation 40.8 fL (36.4-46.3); Red Blood Count 4.38 M/uL (4.20-5.40); White Blood Count 7.33 K/ul (4.8-10.8)
--- NOTE | 2025-03-18 12:10 | CT Scan Report ---
CT angio head w con CLINICAL HISTORY: neuro deficit, acute stroke suspected. TECHNIQUE: Unenhanced axial CT scan of the brain is performed. Subsequently, following the IV adminis tration of 112 cc of Optiray, CT angiogram of the brain was performed from the skull base to the vert ex. Images are reviewed in the axial, sagittal, and coronal planes. 3-D MIPS images are created and a ssessed. IV contrast was administered without complication. All measurements were obtained according to NASCET criteria. A dose lowering technique was utilized adhering to the principles of ALARA. CT DOSE: 1058 COMPARISON STUDY: 08/12/2024 FINDINGS: Distal internal carotid and vertebral arteries are patent. Anterior, middle, and posterior cerebral arteries are patent. The cerebral venous sinuses opacify normally. IMPRESSION: No significant arterial narrowing or occlusion seen at the brain. ACT 112: Negative or not required by law. The above report was generated using voice recognition software. It may contain grammatical, syntax o r spelling errors. Electronically signed by: Maximus Rojas M.D. 03/18/2025 12:09 PM
--- NOTE | 2025-03-18 12:12 | CT Scan Report ---
CT angio neck with con CLINICAL HISTORY: 64 years-old Female with neuro deficit, acute stroke suspected. Acute stroke lik e symptoms COMPARISON STUDY: Head CT of same day TECHNIQUE: Following the IV administration of 112 mL of Optiray, CT angiogram of the neck was perform ed from the aortic arch to the skull base. Images are reviewed in the axial, sagittal, and coronal pl anes. 3-D MIPS images are created and assessed. IV contrast was administered without complication. Al l measurements were calculated based on NASCET criteria. A dose lowering technique was utilized adhe ring to the principles of ALARA. CT DOSE: 1058.44 mGy.cm FINDINGS: Three-vessel morphology of the thoracic aortic arch. There is patency of the innominate and imaged gonzalez bclavian arteries. The common carotid arteries are widely patent. Mild atherosclerosis of the left ca rotid bulb without significant stenosis. The imaged internal carotid arteries are also patent. The ve rtebral arteries are codominant and widely patent. The imaged basilar artery is widely patent. The lung apices are clear without pneumothorax. Unremarkable soft tissues. Multilevel degenerative ch anges of the cervical spine. Developmental incomplete bony fusion involves the posterior arch of C1. IMPRESSION:Unremarkable CTA of the neck. ACT 112: Negative or not required by law. The above report was generated using voice recognition software. It may contain grammatical, syntax o r spelling errors. Electronically signed by: Harjeet Ken M.D. 03/18/2025 12:11 PM
--- NOTE | 2025-03-18 12:16 | Emergency Department Note ---
Impression & Plan Stroke-like symptoms, Elevated INR, Migraine ED Provider Note NAME: HILDA CHANG AGE: 64 SEX: F : 1960 ARRIVES VIA: Walk-In INFORMANT: Patient, ED PROVIDER(S): Obed Fernandez DO CHIEF COMPLAINT: stroke like symptoms HPI: This is a 64-year-old female with the PMHx of TIA, HTN, DLD, CAD, and pAfib not on anticoagulation presenting to [facility] for further evaluation of stroke like symptoms. Patient is accompanied by her who provide additional history. reports that she has had histories of TIAs and this feels similar. He drove home from the gym this morning and brought her immediately to the emergency department. Has had symptoms for the last 3 days. She states she was nauseous this morning and had multiple episodes of emesis. Reports a left hemispheric headache. States that she has had approximately 10-12 migraines in her life but this does not feel similar. Patient states that she has high blood pressure. She offers no other complaints at this time They deny fever or chills. No cough or congestion. Denies chest pain or palpitations. No shortness of breath. They deny abdominal pain, nausea and vomiting. No urinary complaints. No recent changes in bowel movements. Patient denies recent changes in medications or OTC supplements. Patient offers no other complaints, today. ADDITIONAL HISTORY OBTAINED: Per HPI Chronic Medical/Social Conditions Affecting Care: Per HPI PAST MEDICAL HISTORY: See Below PAST SURGICAL HISTORY: See Below FAMILY HISTORY: See Below SOCIAL HISTORY: See Below HOME MEDICATIONS: See Below ALLERGIES: See Below VITALS: See Below PHYSICAL EXAMINATION: GENERAL: Sitting up in bed, alert, well appearing, well nourished, no distress, non-toxic EYE EXAM: normal conjunctiva. PERRL and EOM's grossly intact. OROPHARYNX: no exudate, no erythema, lips, buccal mucosa, and tongue normal and mucous membranes are moist NECK: supple, no nuchal rigidity, no adenopathy, non-tender LUNGS: Clear to auscultation. Normal chest wall mechanics HEART: no murmurs, regular rate, regular rhythm ABDOMEN: abdomen soft, non-tender, no masses, no rebound or guarding. BACK: Back is symmetrical on inspection and there is no deformity, no midline tenderness, no CVA tenderness. SKIN: no rashes and no bruising UPPER EXTREMITIES: upper extremities are grossly normal. LOWER EXTREMITIES: No pitting edema. NEURO EXAM: Normal sensorium, GCS 15, normal speech, no gross weakness of arms, no gross weakness of legs. No drift. Finger to nose intact. Gross sensation intact. NIHSS 0. MEDICAL DECISION MAKING: Differential diagnoses includes but not limited to intracranial hemorrhage, CVA, TIA, hydrocephalus, complex migraine, electrolyte derangements, dehydration, neurocognitive disease In summary, this is a 64 year old female who presented with stroke like symptoms. Differential as above. Nursing notes and pertinent past medical records reviewed. Vital signs reviewed and the patient is mildly hypertensive but otherwise afebrile and hemodynamically stable. History and presentation revealed prior TIA that was similar presentation. Symptoms have been ongoing for at least 3 days but Clinically worsened this morning. Unfortunately she is out of the window for significant therapies including thrombectomy and TNK. Patient could be experiencing a complex migraine as well. Patient has numerous stroke risk factors and notably paroxysmal atrial fibrillation not on anticoagulation. She also has age, hypertension and hyperlipidemia as risks. Physical examination revealed nursing reported NIH stroke scale of [address] scan[address] I did not see the patient until after CT scan. On my evaluation, it appeared the patient's symptoms have resolved. The patient currently has an NIH stroke scale is 0. Will wait for formal reads and discussed with neurology. There is high suspicion that this was a TIA but given the prolonged period of the symptoms over the past 3 days, could be a complex migraine as well. Diagnostics interpreted by me include EKG and cardiac monitoring as listed below: -Cardiac Monitoring: An order was placed for continuous cardiac monitoring. The monitor shows a rate of 60-70s with regular rhythm. -ECG: EKG independently interpreted by me reveals normal sinus rhythm at a ventricular rate of [address] segment changes to suggest STEMI. Intervals are within normal limits. Patient completed laboratory studies and imaging. Results independently interpreted by me are no significant leukocytosis or anemia. Normal electrolytes and kidney function. Patient's INR is slightly elevated with unknown etiology. The patient was managed with IV fluid resuscitation and treatment of headache. I reevaluated the patient following CT imaging. On my assessment the patient has an NIH stroke scale of 0. She currently has no complaints. Will give her a dose of Zofran to prevent further nausea and vomiting. The patient was given Tylenol for headache. Patient was discussed with telestroke and they recommended an MRI and admission for further workup of her TIAs. They will reach back out with medication changes. Ultimately, the decision was made to admit the patient for strokelike symptoms and MRI. I discussed the case with the hospitalist service via telephone/TigerText and they are agreeable to admit the patient to their services. Based on the above, including the patient's age, coexisting illnesses, labs, imaging, and exam findings the decision to treat as an inpatient. I discussed the patient with the hospitalist team who recommended admission to their services. They received the medications, treatments, interventions indicated above and their condition remained stable. I discussed my findings with the patient and their family and they understand and agree with the treatment plan. All patient / family questions were answered to their satisfaction. Consults/Care Managements Discussions: Per MDM ER treatment provided: See above Procedures:none Critical Care: None The chart was completed utilizing [employer] Speech voice recognition software. Grammatical errors, random word insertions, pronoun errors, and incomplete sentences are an occasional consequence of this system due to software limitations, ambient noise, and hardware issues. Any formal questions or concerns about the content, text, or information contained within the body of this dictation should be directly addressed to the physician for clarification. Past Med/Surg History Problem List (Updated 03/20/25 @ 12:46 by Obed Fernandez DO) Migraine (Acute) Elevated INR (Acute) Stroke-like symptoms (Acute) Retinitis pigmentosa Elevated INR Silent micro-hemorrhage of brain Lacunar stroke Complicated migraine Superficial peroneal nerve neuropathy Chronic cough Hyponatremia Stroke-like symptoms (Acute) Vaginal odor Eye pressure Nasal trauma Chronic sinusitis Upper airway cough syndrome Postmenopausal atrophic vaginitis Eczema Arthritis PAF (paroxysmal atrial fibrillation) Postmenopausal status Coronary artery disease s/p cardiac catheterization on 05/30/2019, single CLARISA to mid RCA Dyslipidemia Anxiety Spinal stenosis (Acute) Spondylolisthesis, acquired (Acute) Heart palpitations (Acute) HTN (hypertension) (Chronic) Medical History Acute hyponatremia LOLIS (acute kidney injury) Nasal septal deviation Seborrheic keratosis Seborrheic dermatitis Rosacea Multiple benign nevi Milia Ganglion cyst of finger of right hand Dermatofibroma Carpal tunnel syndrome of right wrist Bunion of great toe Angioma Macular edema Migraine Dysfunctional uterine bleeding Anorexia nervosa Diverticulosis Hypercholesterolemia Finger fracture, left Surgical History S/P cardiac catheterization History of heart artery stent H/O foot surgery S/P tubal ligation S/P tonsillectomy H/O hand surgery History of dilation and curettage History of dental surgery History of colposcopy Cataract Family History (Updated 03/19/25 @ 03:36 by Sharif Drake MD) Aunt Breast cancer paternal Uncle Breast cancer maternal Mother Heart disease Hypertension Kidney disease Myocardial infarction Sister Kidney disease Heart disease New onset a-fib Father Lung cancer Denies family history of Ovarian cancer Prostate cancer Colorectal cancer Stroke Social History (Updated 03/19/25 @ 03:37 by Sharif Drake MD) Smoking Status: Never smoker Tobacco Type: Cigarettes Age Started Using Tobacco: 15; Age Quit Using Tobacco: 16; packs per day: 0.15; Second Hand Exposure: No; Do You Dip or Chew Tobacco: No; Hx Alcohol Use: Yes Alcohol type: beer and wine Alcohol Intake Frequency: 2-3 x/Week Hx Substance Use: No Preferred Language: Dominican Communication Ability: Effective Visual Impairment: No Limitations Hearing Ability: Normal 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 Beliefs That Will Affect Care: None marital status: Current Living Situation: Spouse Current Living Situation Comment: Van Walter (Son) current occupational status: other current occupation: has rental properties How many Children do You have: 1 Feels Safe at Home: Yes Childhood Exposure to Second-Hand Smoke: Yes Diet: regular caffeine: Yes during the past year weight has: remained stable Dental Care, Regularly: Yes Physical Activity Frequency: 3-4 Times per Week Seatbelt Use: always Sunscreen Use: Yes Assistive Devices: None Allergies Allergies Allergy/AdvReac Type Severity Reaction Status Date / Time iodine Allergy Intermediate rash Verified 02/09/25 09:48 adhesive Allergy Mild SKIN Verified 02/09/25 09:48 IRRITATION latex Allergy Unknown Unknown Verified 02/09/25 09:48 No Known Drug Allergies Allergy Verified 02/09/25 09:48 Home Meds Home Medications Medication Instructions Recorded Confirmed coenzyme Q10 100 mg capsule 100 mg PO QAM 04/01/19 03/18/25 multivitamin (Daily Multi-Vitamin 1 tab PO UD 09/30/2003/18/25 tablet) ipratropium bromide 21 mcg (0.03 1 - 2 spray intranasal .1-2X DAILY 08/12/24 03/18/25 %) nasal spray ketoconazole 2 % shampoo 1 applic topical .COMPLEX PRN Other 08/12/24 03/18/25 metronidazole 0.75 % topical gel 1 applic topical UD 08/12/24 03/18/25 rosuvastatin 10 mg tablet 10 mg PO QAM 08/12/24 03/18/25 Previous Rx's Medication Instructions Recorded sodium chloride, sodium See Rx Instructions .Route 01/03/24 bicarb-nasal rinse squeeze bottle .COMPLEX #50 ea with packet (Neilmed Sinus Rinse Complete with packet) ondansetron 4 mg disintegrating 4 mg PO Q8H PRN nausea and 04/29/24 tablet vomiting #10 tabs betamethasone dipropionate 0.05 % 1 applic topical BID PRN psoriasis 08/18/24 topical ointment 14 days #45 grams clopidogrel 75 mg tablet 75 mg PO QAM #90 tabs 08/20/24 citalopram 10 mg tablet 10 mg PO HS #90 tabs 10/12/24 evolocumab 140 mg/mL subcutaneous 140 mg subcut .p3pspba #6 mL 01/20/25 pen injector (Liv Frederick) hydroxyzine HCl 25 mg tablet See Rx Instructions PO .qhs PRN 03/06/25 sleep #60 tabs famotidine 40 mg tablet 40 mg PO BID #60 tabs 03/16/25 rimegepant 75 mg disintegrating 75 mg PO DAILY PRN migraine 03/18/25 tablet (Nurtec ODT) headache #8 tabs Results & Data (ED) Vital Signs Vital Signs - 24 hr 03/18/25 11:27 03/18/25 12:16 Temperature 36.7 C Temperature Source Skin Pulse Rate 68 74 Respiratory Rate 17 Respiratory Effort / Characteristics Non-Labored Spontaneous Respiratory Depth Normal Respiratory Pattern Regular Blood Pressure 155/87 H Blood Pressure Mean 109 Pulse Oximetry 99 Oxygen Delivery Method Room Air Sepsis Recent Fever Within 48 Hours No Sepsis New/Unexplained Change in Mental Status N/A Sepsis Action Taken by Nursing No Action Required Laboratory Data 03/18/25 11:56 03/19/25 05:37 Lab Results 03/18/25 03/18/25 Range/Units 11:56 12:02 WBC 7.33 (4.8-10.8) K/ul RBC 4.38 (4.20-5.40) M/uL Hgb 13.0 (12.0-16.0) g/dl POC Hgb 13.6 (12.0-16.0) g/dl Hct 38.6 (37.0-47.0) % POC Hct 40 (37-47) % MCV 88.1 (80.0-100.0) fL MCH 29.7 (25.0-34.0) pg MCHC 33.7 (32.0-36.0) g/dL RDW Std Deviation 40.8 (36.4-46.3) fL RDW Coeff of Jaymie 12.6 (11.5-14.5) % Plt Count 285 (130-400) K/uL MPV 9.4 (9.4-12.4) fL Immature Gran % (Auto) 0.1 % Neut % (Auto) 73.4 % Lymph % (Auto) 17.2 % Sutter % (Auto) 7.0 % Eos % (Auto) 1.2 % Baso % (Auto) 1.1 % Neut # (Auto) 5.38 (1.40-6.50) K/uL Lymph # (Auto) 1.26 (1.20-3.40) K/uL Sutter # (Auto) 0.51 (0.11-0.59) K/uL Eos # (Auto) 0.09 (0.00-0.50) K/uL Baso # (Auto) 0.08 (0.00-0.20) K/uL Immature Gran # (Auto) 0.01 (0.01-0.20) K/uL PT 13.6 H (9.0-12.0) Seconds INR 1.3 H (0.9-1.1) APTT 27 (21-31) Seconds PTT Ratio 1.0 POC Sodium 134 L (135-144) mmol/L Sodium 132 L (136-145) mmol/L POC Potassium 3.8 (3.3-5.0) mmol/L Potassium 3.8 (3.5-5.1) mmol/L POC Chloride 96 L (101-112) mmol/L Chloride 99 (98-107) mmol/L Carbon Dioxide 28 (21-32) mmol/L POC Total CO2 24 (24-31) mmol/L Anion Gap 5 (3-11) POC Anion Gap 18.0 (16-25) mmol/L POC BUN 15 (7-18) mg/dl BUN 15 (6-23) mg/dl Creatinine 0.91 (0.6-1.2) mg/dl POC Creatinine 1.0 (0.6-1.3) mg/dl Est Cr Clr Drug Dosing 62.5 ml/min eGFR 70.01 BUN/Creatinine Ratio 16.5 (10-20) Glucose 110 H (70-99(Fasting)) mg/dl POC Glucose (other) 103 H (70-99) mg/dl Calcium 9.0 (8.6-10.3) mg/dl POC Ioniz Calcium Monique 1.17 (1.12-1.32) mmol/l Magnesium 1.9 (1.7-2.4) mg/dl Total Bilirubin 0.5 (0.2-1.0) mg/dl AST 24 (13-39) U/L ALT 22 (7-52) U/L Alkaline Phosphatase 76 (34-104) U/L Troponin I High Sens < 2.3 (0-14) pg/ml Total Protein 6.7 (6.0-8.3) gm/dl Albumin 4.1 (3.4-5.0) gm/dl Globulin 2.6 (2.5-4.0) gm/dl Albumin/Globulin Ratio 1.6 (0.9-2) Administered Medications Discontinued Medications Acetaminophen (Acetaminophen 500 Mg Tab) 1,000 mg PO NOW STA Stop: 03/18/25 12:32 Last Admin: 03/18/25 12:35 Dose: 1,000 mg Documented By: KIMBERLY Acetaminophen (Acetaminophen 325 Mg Tab) 650 mg PO Q4H PRN PRN Reason: Pain or Fever Stop: 04/17/25 15:30 Last Admin: 03/19/25 08:51 Dose: 650 mg Documented By: MYAH Acetaminophen/Butalbital/Caffeine (Butalbital/Acetamin/Caffeine Tab) 1 tab PO NOW STA Stop: 03/18/25 18:22 Last Admin: 03/18/25 20:06 Dose: Not Given Documented By: KIKI Citalopram Hydrobromide (Citalopram 20 Mg Tab) 10 mg PO HS JOSE LUIS Stop: 04/17/25 20:59 Last Admin: 03/18/25 20:39 Dose: 10 mg Documented By: KUNAL Clopidogrel Bisulfate (Clopidogrel Bisulfate 75 Mg Tab) 75 mg PO QAM JOSE LUIS Stop: 04/18/25 08:59 Last Admin: 03/19/25 08:49 Dose: 75 mg Documented By: MYAH Famotidine (Famotidine 20 Mg Tab) 40 mg PO BID JOSE LUIS Stop: 04/17/25 20:59 Last Admin: 03/19/25 08:51 Dose: 40 mg Documented By: Admin: 03/18/25 20:39 Dose: 40 mg Documented By: KUNAL Gadobutrol (Gadobutrol 65ml Vial) 8 ml IV ONCE ONE Stop: 03/18/25 14:48 Last Admin: 03/18/25 14:47 Dose: 8 ml Documented By: KATE Magnesium Sulfate/Dextrose (Magnesium Sulfate / D5w) 1 gm in 100 mls @ 100 mls/hr IV NOW STA Stop: 03/18/25 19:20 Last Infusion: 03/18/25 20:06 Dose: Infused Documented By: Admin: 03/18/25 18:55 Dose: 100 mls/hr Documented By: KIKI Ioversol (Optiray 320 125ml) 112 ml IV ONCE ONE Stop: 03/18/25 11:43 Last Admin: 03/18/25 11:42 Dose: 112 ml Documented By: KASANDRA Ipratropium [place] (Ipratropium [place] Nasal [place] 0.03% 30 Ml) 1 - 2 sprays NA BID JOSE LUIS Stop: 04/17/25 20:59 Last Admin: 03/19/25 08:48 Dose: 2 sprays Documented By: Admin: 03/18/25 20:40 Dose: 1 sprays Documented By: KUNAL Melatonin (Melatonin 3 Mg Tab) 3 mg PO HS PRN PRN Reason: Sleep Stop: 04/17/25 15:30 Last Admin: 03/18/25 20:07 Dose: 3 mg Documented By: KIKI Multivitamins (Multivitamin Tab) 1 tab PO DAILY JOSE LUIS Stop: 04/18/25 08:59 Last Admin: 03/19/25 08:49 Dose: 1 tab Documented By: MYAH Ondansetron HCl (Ondansetron Inj 2 Mg/Ml 2 Ml Vial) 4 mg IV NOW STA Stop: 03/18/25 12:17 Last Admin: 03/18/25 12:18 Dose: 4 mg Documented By: KIMBERLY Ondansetron HCl (Ondansetron Inj 2 Mg/Ml 2 Ml Vial) 4 mg IV Q6H PRN PRN Reason: Nausea Stop: 04/17/25 15:30 Last Admin: 03/19/25 03:33 Dose: 4 mg Documented By: KUNAL Ondansetron HCl (Ondansetron Inj 2 Mg/Ml 2 Ml Vial) 4 mg IV NOW STA Stop: 03/18/25 18:22 Last Admin: 03/18/25 18:51 Dose: Not Given Documented By: KIKI Rosuvastatin Calcium (Rosuvastatin Calcium 10 Mg Tab) 10 mg PO QAM [facility] Stop: 04/18/25 08:59 Last Admin: 03/19/25 08:49 Dose: 10 mg Documented By: MYAH Imaging Data Radiologist's Impression: Head CT 03/18/25 11:36 CT head/brain wo con CLINICAL HISTORY: neuro deficit, acute stroke suspected. TECHNIQUE: Multiple axial CT images of the head were obtained without contrast. A dose lowering technique was utilized adhering to the principles of ALARA. CT DOSE: 1058 COMPARISON: 08/12/2024 FINDINGS: There is stable moderate chronic small vessel ischemic change. No intracranial hemorrhage seen. No mass effect, midline shift, or hydrocephalus. No skull fracture seen. Visualized paranasal sinuses and mastoid air cells are clear. IMPRESSION: No acute findings. ACT 112: Negative or not required by law. The above report was generated using voice recognition software. It may contain grammatical, syntax or spelling errors. Electronically signed by: Maximus Rojas M.D. 03/18/2025 12:26 PM Head CTA 03/18/25 11:36 CT angio head w con CLINICAL HISTORY: neuro deficit, acute stroke suspected. TECHNIQUE: Unenhanced axial CT scan of the brain is performed. Subsequently, following the IV administration of 112 cc of Optiray, CT angiogram of the brain was performed from the skull base to the vertex. Images are reviewed in the axial, sagittal, and coronal planes. 3-D MIPS images are created and assessed. IV contrast was administered without complication. All measurements were obtained according to NASCET criteria. A dose lowering technique was utilized adhering to the principles of ALARA. CT DOSE: 1058 COMPARISON STUDY: 08/12/2024 FINDINGS: Distal internal carotid and vertebral arteries are patent. Anterior, middle, and posterior cerebral arteries are patent. The cerebral venous sinuses opacify normally. IMPRESSION: No significant arterial narrowing or occlusion seen at the brain. ACT 112: Negative or not required by law. The above report was generated using voice recognition software. It may contain grammatical, syntax or spelling errors. Electronically signed by: Maximus Rojas M.D. 03/18/2025 12:09 PM Neck CTA 03/18/25 11:36 CT angio neck with con CLINICAL HISTORY: 64 years-old Female with neuro deficit, acute stroke suspected. Acute stroke like symptoms COMPARISON STUDY: Head CT of same day TECHNIQUE: Following the IV administration of 112 mL of Optiray, CT angiogram of the neck was performed from the aortic arch to the skull base. Images are reviewed in the axial, sagittal, and coronal planes. 3-D MIPS images are created and assessed. IV contrast was administered without complication. All measurements were calculated based on NASCET criteria. A dose lowering technique was utilized adhering to the principles of ALARA. CT DOSE: 1058.44 mGy.cm FINDINGS: Three-vessel morphology of the thoracic aortic arch. There is patency of the innominate and imaged subclavian arteries. The common carotid arteries are widely patent. Mild atherosclerosis of the left carotid bulb without significant stenosis. The imaged internal carotid arteries are also patent. The vertebral arteries are codominant and widely patent. The imaged basilar artery is widely patent. The lung apices are clear without pneumothorax. Unremarkable soft tissues. Multilevel degenerative changes of the cervical spine. Developmental incomplete bony fusion involves the posterior arch of C1. IMPRESSION:Unremarkable CTA of the neck. ACT 112: Negative or not required by law. The above report was generated using voice recognition software. It may contain grammatical, syntax or spelling errors. Electronically signed by: Harjeet Ken M.D. 03/18/2025 12:11 PM Brain MRI 03/18/25 13:21 MR brain wo/w con HISTORY: 64 years-old Female Stroke workup COMPARISON: 09/08/24 TECHNIQUE: Multiplanar multisequence MRI of the brain was obtained with and without IV contrast FINDINGS: No restricted diffusion to suggest acute or subacute infarct. Midline structures appear unremarkable. No acute intracranial hemorrhage, midline shift, abnormal extra-axial collection, hydrocephalus or intra-axial mass. Involutional changes with moderate to extensive T2/FLAIR hyperintense foci throughout the white matter suggestive of chronic microvascular ischemic disease. These findings are generally unchanged from the prior study. Chronic lacunar infarcts again noted within the basal ganglia, brainstem and valiente radiata. Scattered subcentimeter foci of blooming artifact noted in the basal ganglia, left temporal lobe, brainstem and cerebellum suggestive of hemosiderin related to chronic microhemorrhages, unchanged. No abnormal enhancement. Cerebral venous sinuses and major arterial flow voids appear patent. Skull, orbits and soft tissues are unremarkable. Mastoid air cells and paranasal sinuses are generally clear. Right-sided lens repair. IMPRESSION: 1. No acute intracranial abnormality. No acute or subacute infarct. 2. No abnormal enhancement. 3. Chronic findings as above. ACT 112: Negative or not required by law. The above report was generated using voice recognition software. It may contain grammatical, syntax or spelling errors. Electronically signed by: Harjeet Ken M.D. 03/18/2025 3:10 PM Discharge Plan Visit Data Chief Complaint: TIA Symptoms Stated Complaint: DIZZINESS, CONFUSION, VOMITING, HX MINI STROKES ED Provider: Obed Fernandez Discharge Problem: Stroke-like symptoms, Elevated INR, Migraine Patient Disposition: Admitted As Inpatient Condition: Serious Discharge Instructions Interventions: ED Discharge Assessment Last Done: 03/18/25 15:32
[2025-03-18] MEDS: ONDANSETRON INJ 2 MG/ML 2 ML VIAL IV STA ×2 (12:18→18:51)
[2025-03-18 12:19] LABS: INR 1.3 (0.9-1.1); Partial Thromboplastin Time 27 Seconds (21-31); Prothrombin Time 13.6 Seconds (9.0-12.0)
--- NOTE | 2025-03-18 12:28 | CT Scan Report ---
CT head/brain wo con CLINICAL HISTORY: neuro deficit, acute stroke suspected. TECHNIQUE: Multiple axial CT images of the head were obtained without contrast. A dose lowering tech nique was utilized adhering to the principles of ALARA. CT DOSE: 1058 COMPARISON: 08/12/2024 FINDINGS: There is stable moderate chronic small vessel ischemic change. No intracranial hemorrhage s een. No mass effect, midline shift, or hydrocephalus. No skull fracture seen. Visualized paranasal si nuses and mastoid air cells are clear. IMPRESSION: No acute findings. ACT 112: Negative or not required by law. The above report was generated using voice recognition software. It may contain grammatical, syntax o r spelling errors. Electronically signed by: Maximus Rojas M.D. 03/18/2025 12:26 PM
[2025-03-18 12:35] LABS: Alanine Aminotransferase 22 U/L (7-52); Albumin Globulin Ratio 1.6 (0.9-2); Alkaline Phosphatase 76 U/L (34-104); Anion Gap 5 (3-11); Bilirubin,Total 0.5 mg/dl (0.2-1.0); Blood Urea Nitrogen 15 mg/dl (6-23); Calcium 9.0 mg/dl (8.6-10.3); Carbon Dioxide 28 mmol/L (21-32); Chloride 99 mmol/L (98-107); Creatinine Clr Calc Pharmacy 62.5 ml/min; Globulin 2.6 gm/dl (2.5-4.0); Glucose 110 mg/dl (70-99(Fasting)); Magnesium 1.9 mg/dl (1.7-2.4); Potassium 3.8 mmol/L (3.5-5.1); Sodium 132 mmol/L (136-145); Total Protein 6.7 gm/dl (6.0-8.3)
[2025-03-18] MEDS: ACETAMINOPHEN 500 MG TAB PO STA (12:35)
--- NOTE | 2025-03-18 13:48 | History & Physical Report ---
Date of Service March 18, 2025 Assessment & Plan (1) Complicated migraine: (2) Lacunar stroke: (3) Silent micro-hemorrhage of brain: (4) Hyponatremia: (5) Elevated INR: (6) PAF (paroxysmal atrial fibrillation): (7) Coronary artery disease: (8) Dyslipidemia: (9) Retinitis pigmentosa: Plan Pleasant 64yo female with history of CAD with NSTEMI 2019 s/p RCA stent, PAF, hyperlipidemia, retinitis pigmentosa, and migraine headaches presents with left- sided headache beginning AM of 03/17, "babbling" of speech off & on since Sunday afternoon/evening, right arm numbness from the hand to the elbow region occurring twice (03/18 AM and 03/17 afternoon), and nausea/vomiting this morning. #suspected complicated migraine - -known h/o migraine headaches -began with neurological symptoms Sunday pm, progressing to left-sided headache starting 03/17/25 -additional neurological symptoms (numbness right arm) since the headache began -MRI brain negative for acute CVA, acute ICH, etc. -MRI brain does show multiple old lacunar strokes as well as microhemorrhages/hemosiderin deposition in various locations which may suggest CAA (see below) -can't rule out "stroke mimic" such as infectious process (UTI, etc) but much less likely -with her CAD, HTN, etc. triptans are contraindication -thus, [facility] and have fruit picker for use while here for her headache -while awaiting the Nurtec can give IV magnesium, anti-emetics, fioricet prn -consider steroids -with her complicated migraine, old lacunes seen on imaging, ?CAA on MRI brain - will have neurology consult, and ideally should f/u with [facility] Neuro in the clinic -to complete her w/u will repeat her echo in the am -please note that previous echo in early 2024 did NOT show PFO on bubble study #CAD s/p NSTEMI 2018 with RCA stent - -follows with Dr Willie Burgos, [facility] Cardiology -no recent ischemic symptoms -cont plavix -cont statin -cont Repatha as outpatient -LDL was 46 in early January 2025 - defer on rechecking lipids while here -given her CAD, triptan therapy for migraines contraindicated; use Nurtec ODT in [place] #lacunar strokes on MRI brain - -these were seen on MRI brain earlier this year -does have h/o PAF -CHADS-VASc score is a 5 (6 if you include HTN) -previously anticoagulation was advised but patient declined such at that time -would need to revisit this possibility but would want neurology input in light of ?CAA/microhemorrhages #abnormal brain MRI - -there is considerable atrophy on brain MRI along with chronic microvascular changes as well as hemosiderin deposition/microhemorrhages -these findings were seen on prior brain MRI -CAA (cerebral amyloid angiopathy)?? -will ask neurology to formally consult and weigh in on this -if CAA is present is that an absolute contraindication to anticoagulation?? -if she does have CAA she is at considerable risk of cognitive impairment long- term #h/o PAF - -previous event monitor in 2020 confirmed she was having runs of a.fib -anticoagulation discussed at that time in 2020; AC deferred -see discussion above -place on tele while here -echo #hyperlipidemia - -cont statin -defer on repeat lipid profile -check a1c in am -TSH in February 2025 wnl #?HTN - -patient denies this diagnosis -she has fluctuating BPs looking at her chart -would simply observe for now and defer on anti-hypertensives #DVT proph - -defer on chemical means for now -early ambulation #retinitis pigmentosa - -known diagnosis -follows with [facility] -no Rx available for this progressive condition -there has been talk about doing genetic testing, however, per patient pt's updated by phone he plans to go to pharmacy for the [facility] discussed MRI findings with him History of Present Illness Chief Complaint: left-sided headache, confusion/"babbling" (speech), right arm numbness Primary Care Provider: DO Pauline Barkley 64yo female with history of CAD s/p stent, PAF, hyperlipidemia, and migraine headaches presents with left-sided headache beginning AM of 03/17, " babbling" of speech off & on since Sunday afternoon/evening, right arm numbness from the hand to the elbow region occurring twice (03/18 AM and 03/17 afternoon), and nausea/vomiting this morning. Although she has a migraine history she states this headache feels somewhat different from her other migraines over the years. No photophobia or phonophobia. No eye pain. No motor weakness. Prior to Sunday night she had been feeling well. No recent URI. No UTI symptoms. Had similar episode requiring admission earlier this year in 08/2024 - told she had "mini-strokes." Patient states she took sumatriptan on Sunday evening due to the symptoms she had been having but did not have headache at that time. Allergies Allergy/AdvReac Type Severity Reaction Status Date / Time iodine Allergy Intermediate rash Verified 02/09/25 09:48 adhesive Allergy Mild SKIN Verified 02/09/25 09:48 IRRITATION latex Allergy Unknown Unknown Verified 02/09/25 09:48 No Known Drug Allergies Allergy Verified 02/09/25 09:48 Home Medications Medication Instructions Recorded Confirmed Type coenzyme Q10 100 mg capsule 100 mg PO QAM 04/01/19 03/18/25 History multivitamin (Daily Multi-Vitamin 1 tab PO UD 09/30/20 03/18/25 History tablet) sodium chloride, sodium See Rx Instructions .Route 01/03/24 03/18/25 Rx bicarb-nasal rinse squeeze bottle .COMPLEX #50 ea with packet (Neilmed Sinus Rinse Complete with packet) ondansetron 4 mg disintegrating 4 mg PO Q8H PRN nausea and 04/29/24 03/18/25 Rx tablet vomiting #10 tabs ipratropium bromide 21 mcg (0.03 1 - 2 spray intranasal .1-2X DAILY 08/12/24 03/18/25 History %) nasal spray ketoconazole 2 % shampoo 1 applic topical .COMPLEX PRN Other 08/12/24 03/18/25 History metronidazole 0.75 % topical gel 1 applic topical UD 08/12/24 03/18/25 History rosuvastatin 10 mg tablet 10 mg PO QAM 08/12/24 03/18/25 History sumatriptan succinate 50 mg tablet 50 mg PO DAILY PRN Migraine 08/12/24 03/18/25 History Headache betamethasone dipropionate 0.05 % 1 applic topical BID PRN psoriasis 08/18/24 03/18/25 Rx topical ointment 14 days #45 grams clopidogrel 75 mg tablet 75 mg PO QAM #90 tabs 08/20/24 03/18/25 Rx citalopram 10 mg tablet 10 mg PO HS #90 tabs 10/12/24 03/18/25 Rx evolocumab 140 mg/mL subcutaneous 140 mg subcut .[id number] #6 mL 01/20/25 03/18/25 Rx pen injector (Liv Frederick) hydroxyzine HCl 25 mg tablet See Rx Instructions PO .qhs PRN 03/06/25 03/18/25 Rx sleep #60 tabs famotidine 40 mg tablet 40 mg PO BID #60 tabs 03/16/25 03/18/25 Rx rimegepant 75 mg disintegrating 75 mg PO DAILY PRN migraine 03/18/25 Rx tablet (Nurtec ODT) headache #8 tabs Past Med/Surg History Problem List (Updated 03/19/25 @ 03:49 by Sharif Drake MD) Retinitis pigmentosa Elevated INR Silent micro-hemorrhage of brain Lacunar stroke Complicated migraine Superficial peroneal nerve neuropathy Chronic cough Hyponatremia Stroke-like symptoms (Acute) Vaginal odor Eye pressure Nasal trauma Chronic sinusitis Upper airway cough syndrome Postmenopausal atrophic vaginitis Eczema Arthritis PAF (paroxysmal atrial fibrillation) Postmenopausal status Coronary artery disease s/p cardiac catheterization on 05/30/2019, single CLARISA to mid RCA Dyslipidemia Anxiety Spinal stenosis (Acute) Spondylolisthesis, acquired (Acute) Heart palpitations (Acute) HTN (hypertension) (Chronic) Medical History Acute hyponatremia LOLIS (acute kidney injury) Nasal septal deviation Seborrheic keratosis Seborrheic dermatitis Rosacea Multiple benign nevi Milia Ganglion cyst of finger of right hand Dermatofibroma Carpal tunnel syndrome of right wrist Bunion of great toe Angioma Macular edema Migraine Dysfunctional uterine bleeding Anorexia nervosa Diverticulosis Hypercholesterolemia Finger fracture, left Surgical History S/P cardiac catheterization History of heart artery stent H/O foot surgery S/P tubal ligation S/P tonsillectomy H/O hand surgery History of dilation and curettage History of dental surgery History of colposcopy Cataract Family History (Updated 03/19/25 @ 03:36 by Sharif Drake MD) Aunt Breast cancer paternal Uncle Breast cancer maternal Mother Heart disease Hypertension Kidney disease Myocardial infarction Sister Kidney disease Heart disease New onset a-fib Father Lung cancer Denies family history of Ovarian cancer Prostate cancer Colorectal cancer Stroke Social History (Updated 03/19/25 @ 03:37 by Sharif Drake MD) Smoking Status: Never smoker Tobacco Type: Cigarettes Age Started Using Tobacco: 15; Age Quit Using Tobacco: 16; packs per day: 0.15; Second Hand Exposure: No; Do You Dip or Chew Tobacco: No; Hx Alcohol Use: Yes Alcohol type: beer and wine Alcohol Intake Frequency: 2-3 x/Week Hx Substance Use: No Preferred Language: German Communication Ability: Effective Visual Impairment: No Limitations Hearing Ability: Normal Shipping Order Clerk Required: No Beliefs That Will Affect Care: None marital status: Current Living Situation: Spouse Current Living Situation Comment: Van Walter (Son) current occupational status: other current occupation: has [employer] How many Children do You have: 1 Feels Safe at Home: Yes Childhood Exposure to Second-Hand Smoke: Yes Diet: regular caffeine: Yes during the past year weight has: remained stable Dental Care, Regularly: Yes Physical Activity Frequency: 3-4 Times per Week Seatbelt Use: always Sunscreen Use: Yes Assistive Devices: None Review of Systems Review of Systems: gen - no fevers or chills; has been eating normally; no weight changes eyes - no ocular complaints; no photophobia HENT - no dysphagia, no sore throat or congestion, no ear pain CV - no chest pain, no palpitations, no edema pulm - no dyspnea, no cough GI - had nausea/vomiting this am - none since; no abd pain; no diarrhea; no blood in stool - no LUTS; no foul-smelling urine musculo - denies joint pains or myalgias neuro - left-sided headache (parietal region); headache worse with coughing; numbness from right elbow to right hand - 2 episodes last 24 hours; no focal motor weakness skin - no rash endo - denies diabetes Physical Exam Physical Exam: gen - occasional word-finding difficulties and difficulty with sentence structure but no aphasia or dysarthria; otherwise NAD, pleasant eyes - PERRL, EOMI HENT - MMM, no lesions, tongue midline neck - no JVD, no lymph nodes, no goiter heart - RRR, s1 s2, no murmur lungs - CTA b/l abd - soft NT ND BS+ ext - no edema, pulses 2+ b/l neuro - strength 5/5 x 4 exts; sensation intact to light touch x 4 exts; CN 3-12 intact; finger/nose/finger maneuver without ataxia; no dysarthria; no aphasia; occasional word-finding difficulties skin - no rash psych - a/o x 3 head - no tenderness to palpation over left scalp/temporal artery region Results & Data Results & Data Vital Signs (Past 12 Hours) Vital Signs Temp Pulse Resp BP Pulse Ox O2 Del Method 03/18/25 12:16 74 03/18/25 11:27 36.7 C 68 17 155/87 H 99 Room Air Laboratory Results Laboratory Results - last 24 hr 03/18/25 03/18/25 03/18/25 11:56 12:02 16:27 WBC 7.33 RBC 4.38 Hgb 13.0 POC Hgb 13.6 Hct 38.6 POC Hct 40 MCV 88.1 MCH 29.7 MCHC 33.7 RDW Std Deviation 40.8 RDW Coeff of Jaymie 12.6 Plt Count 285 MPV 9.4 Immature Gran % (Auto) 0.1 Neut % (Auto) 73.4 Lymph % (Auto) 17.2 [place] % (Auto) 7.0 Eos % (Auto) 1.2 Baso % (Auto) 1.1 Neut # (Auto) 5.38 Lymph # (Auto) 1.26 [place] # (Auto) 0.51 Eos # (Auto) 0.09 Baso # (Auto) 0.08 Immature Gran # (Auto) 0.01 PT 13.6 H INR 1.3 H APTT 27 PTT Ratio 1.0 POC Sodium 134 L Sodium 132 L POC Potassium 3.8 Potassium 3.8 POC Chloride 96 L Chloride 99 Carbon Dioxide 28 POC Total CO2 24 Anion Gap 5 POC Anion Gap 18.0 POC BUN 15 BUN 15 Creatinine 0.91 POC Creatinine 1.0 Est Cr Clr Drug Dosing 62.5 eGFR 70.01 BUN/Creatinine Ratio 16.5 Glucose 110 H POC Glucose (other) 103 H Calcium 9.0 POC Ioniz Calcium Monique 1.17 Magnesium 1.9 Total Bilirubin 0.5 AST 24 ALT 22 Alkaline Phosphatase 76 Troponin I High Sens < 2.3 Total Protein 6.7 Albumin 4.1 Globulin 2.6 Albumin/Globulin Ratio 1.6 Urine Color Yellow Urine Appearance Clear Urine pH 8.0 H Ur Specific [place] 1.034 H Urine Protein Negative Urine Glucose (UA) Negative Urine Ketones Negative Urine Blood Negative Urine Nitrite Negative Urine Bilirubin Negative Urine Urobilinogen Negative Ur Leukocyte Esterase Negative SARS-CoV-2 (PCR) Influenza Type A (PCR) Influenza Type B (PCR) RSV (RT-PCR) 03/18/25 16:41 WBC RBC Hgb POC Hgb Hct POC Hct MCV MCH MCHC RDW Std Deviation RDW Coeff of Jaymie Plt Count MPV Immature Gran % (Auto) Neut % (Auto) Lymph % (Auto) [place] % (Auto) Eos % (Auto) Baso % (Auto) Neut # (Auto) Lymph # (Auto) [place] # (Auto) Eos # (Auto) Baso # (Auto) Immature Gran # (Auto) PT INR APTT PTT Ratio POC Sodium Sodium POC Potassium Potassium POC Chloride Chloride Carbon Dioxide POC Total CO2 Anion Gap POC Anion Gap POC BUN BUN Creatinine POC Creatinine Est Cr Clr Drug Dosing eGFR BUN/Creatinine Ratio Glucose POC Glucose (other) Calcium POC Ioniz Calcium Monique Magnesium Total Bilirubin AST ALT Alkaline Phosphatase Troponin I High Sens Total Protein Albumin Globulin Albumin/Globulin Ratio Urine Color Urine Appearance Urine pH Ur Specific [place] Urine Protein Urine Glucose (UA) Urine Ketones Urine Blood Urine Nitrite Urine Bilirubin Urine Urobilinogen Ur Leukocyte Esterase SARS-CoV-2 (PCR) NEGATIVE Influenza Type A (PCR) Negative Influenza Type B (PCR) Negative RSV (RT-PCR) Negative Diagnostic Findings Head CT 03/18/25 11:36 CT head/brain wo con CLINICAL HISTORY: neuro deficit, acute stroke suspected. TECHNIQUE: Multiple axial CT images of the head were obtained without contrast. A dose lowering technique was utilized adhering to the principles of ALARA. CT DOSE: 1058 COMPARISON: 08/12/2024 FINDINGS: There is stable moderate chronic small vessel ischemic change. No intracranial hemorrhage seen. No mass effect, midline shift, or hydrocephalus. No skull fracture seen. Visualized paranasal sinuses and mastoid air cells are clear. IMPRESSION: No acute findings. ACT 112: Negative or not required by law. The above report was generated using voice recognition software. It may contain grammatical, syntax or spelling errors. Electronically signed by: Maximus Rojas M.D. 03/18/2025 12:26 PM Head CTA 03/18/25 11:36 CT angio head w con CLINICAL HISTORY: neuro deficit, acute stroke suspected. TECHNIQUE: Unenhanced axial CT scan of the brain is performed. Subsequently, following the IV administration of 112 cc of Optiray, CT angiogram of the brain was performed from the skull base to the vertex. Images are reviewed in the axial, sagittal, and coronal planes. 3-D MIPS images are created and assessed. IV contrast was administered without complication. All measurements were obtained according to NASCET criteria. A dose lowering technique was utilized adhering to the principles of ALARA. CT DOSE: 1058 COMPARISON STUDY: 08/12/2024 FINDINGS: Distal internal carotid and vertebral arteries are patent. Anterior, middle, and posterior cerebral arteries are patent. The cerebral venous sinuses opacify normally. IMPRESSION: No significant arterial narrowing or occlusion seen at the brain. ACT 112: Negative or not required by law. The above report was generated using voice recognition software. It may contain grammatical, syntax or spelling errors. Electronically signed by: Maximus Rojas M.D. 03/18/2025 12:09 PM Neck CTA 03/18/25 11:36 CT angio neck with con CLINICAL HISTORY: 64 years-old Female with neuro deficit, acute stroke suspected. Acute stroke like symptoms COMPARISON STUDY: Head CT of same day TECHNIQUE: Following the IV administration of 112 mL of Optiray, CT angiogram of the neck was performed from the aortic arch to the skull base. Images are reviewed in the axial, sagittal, and coronal planes. 3-D MIPS images are created and assessed. IV contrast was administered without complication. All measurements were calculated based on NASCET criteria. A dose lowering technique was utilized adhering to the principles of ALARA. CT DOSE: 1058.44 mGy.cm FINDINGS: Three-vessel morphology of the thoracic aortic arch. There is patency of the innominate and imaged subclavian arteries. The common carotid arteries are widely patent. Mild atherosclerosis of the left carotid bulb without significant stenosis. The imaged internal carotid arteries are also patent. The vertebral arteries are codominant and widely patent. The imaged basilar artery is widely patent. The lung apices are clear without pneumothorax. Unremarkable soft tissues. Multilevel degenerative changes of the cervical spine. Developmental incomplete bony fusion involves the posterior arch of C1. IMPRESSION:Unremarkable CTA of the neck. ACT 112: Negative or not required by law. The above report was generated using voice recognition software. It may contain grammatical, syntax or spelling errors. Electronically signed by: Harjeet Ken M.D. 03/18/2025 12:11 PM Brain MRI 03/18/25 13:21 MR brain wo/w con HISTORY: 64 years-old Female Stroke workup COMPARISON: 09/08/24 TECHNIQUE: Multiplanar multisequence MRI of the brain was obtained with and without IV contrast FINDINGS: No restricted diffusion to suggest acute or subacute infarct. Midline structures appear unremarkable. No acute intracranial hemorrhage, midline shift, abnormal extra-axial collection, hydrocephalus or intra-axial mass. Involutional changes with moderate to extensive T2/FLAIR hyperintense foci throughout the white matter suggestive of chronic microvascular ischemic disease. These findings are generally unchanged from the prior study. Chronic lacunar infarcts again noted within the basal ganglia, brainstem and valiente radiata. Scattered subcentimeter foci of blooming artifact noted in the basal ganglia, left temporal lobe, brainstem and cerebellum suggestive of hemosiderin related to chronic microhemorrhages, unchanged. No abnormal enhancement. Cerebral venous sinuses and major arterial flow voids appear patent. Skull, orbits and soft tissues are unremarkable. Mastoid air cells and paranasal sinuses are generally clear. Right-sided lens repair. IMPRESSION: 1. No acute intracranial abnormality. No acute or subacute infarct. 2. No abnormal enhancement. 3. Chronic findings as above. ACT 112: Negative or not required by law. The above report was generated using voice recognition software. It may contain grammatical, syntax or spelling errors. Electronically signed by: Harjeet Ken M.D. 03/18/2025 3:10 PM ECG Additional Comments: my reading - NSR, nonspecific ST changes III/AVF - otherwise no ST changes, normal intervals Code Status & VTE Plan Code Status full code PG Care Time/CCT Total # of Minutes Spent Total Time Spent with Patient: Total time spent is greater than 50% in coordination of care (as documented) at patient's floor/unit and/or counseling patient: Coding Level of Care Code 01510 INT INP/OBS CARE 3/75MIN Diagnoses Complicated migraine G43.109 Lacunar stroke I63.81 Silent micro-hemorrhage of brain I61.8 Hyponatremia E87.1 Elevated INR R79.1 PAF (paroxysmal atrial fibrillation) I48.0 Coronary artery disease I25.10 Dyslipidemia E78.5 Retinitis pigmentosa H35.52
[2025-03-18] MEDS: GADOBUTROL 65ML VIAL IV ONE (14:47)
--- NOTE | 2025-03-18 15:12 | Magnetic Resonance Report ---
MR brain wo/w con HISTORY: 64 years-old Female Stroke workup COMPARISON: 09/08/24 TECHNIQUE: Multiplanar multisequence MRI of the brain was obtained with and without IV contrast FINDINGS: No restricted diffusion to suggest acute or subacute infarct. Midline structures appear unremarkable. No acute intracranial hemorrhage, midline shift, abnormal extra-axial collection, hydrocephalus or i ntra-axial mass. Involutional changes with moderate to extensive T2/FLAIR hyperintense foci throughou t the white matter suggestive of chronic microvascular ischemic disease. These findings are generally unchanged from the prior study. Chronic lacunar infarcts again noted within the basal ganglia, brain stem and valiente radiata. Scattered subcentimeter foci of blooming artifact noted in the basal ganglia , left temporal lobe, brainstem and cerebellum suggestive of hemosiderin related to chronic microhemo rrhages, unchanged. No abnormal enhancement. Cerebral venous sinuses and major arterial flow voids appear patent. Skull, orbits and soft tissues are unremarkable. Mastoid air cells and paranasal sinuses are generally mitali r. Right-sided lens repair. IMPRESSION: 1. No acute intracranial abnormality. No acute or subacute infarct. 2. No abnormal enhancement. 3. Chronic findings as above. ACT 112: Negative or not required by law. The above report was generated using voice recognition software. It may contain grammatical, syntax o r spelling errors. Electronically signed by: Harjeet Ken M.D. 03/18/2025 3:10 PM
[2025-03-18] MEDS ORDERED: PHARMACIST DISCHARGE MED REC CONSULT PRN (15:31)
[2025-03-18] MEDS ORDERED: FLUOCINONIDE 0.05% OINT 15 GM TUBE EXT PRN (15:35)
--- NOTE | 2025-03-18 15:39 | Electrocardiogram Report ---
Test Reason : Blood Pressure : */* mmHG Vent. Rate : 75 BPM Atrial Rate : 75 BPM P-R Int : 186 ms QRS Dur : 90 ms QT Int : 394 ms P-R-T Axes : -6 -8 -16 degrees QTcB Int : 439 ms Normal sinus rhythm Normal ECG When compared with ECG of 12-Aug-2024 14:34, No significant change was found Confirmed by Eitan Cruz ([id number]) on 03/18/2025 3:39:17 PM Referred By: REFERRED SELF Confirmed By: Eitan Cruz
[2025-03-18 16:54] LABS: Appearance Urine Clear (Clear); Glucose Urine UA Negative (Negative)
[2025-03-18 17:38] LABS: Influenza A virus by PCR Negative (Neg); Influenza B virus by PCR Negative (Neg); SARS CoV2 RNA(COVID-19) Ceph NEGATIVE (Negative)
[2025-03-18] MEDS: MAGNESIUM SULFATE / D5W 1 GM/100 ML BAG IV STA (18:55)
[2025-03-18] MEDS: BUTALBITAL/ACETAMIN/CAFFEINE TAB PO STA (20:06)
[2025-03-18] MEDS: MELATONIN 3 MG TAB PO PRN (20:07)
[2025-03-18] MEDS: CITALOPRAM 20 MG TAB PO SCH (20:39)
[2025-03-18] MEDS: FAMOTIDINE 20 MG TAB PO SCH (20:39)
[2025-03-18] MEDS: IPRATROPIUM BROMIDE NASAL SPRAY 0.03% 30 ML SCH (20:40)
[2025-03-19] MEDS: ONDANSETRON INJ 2 MG/ML 2 ML VIAL IV PRN (03:33)
[2025-03-19 06:19] LABS: Anion Gap 5.0 (3-11); Blood Urea Nitrogen 14.0 mg/dl (6-23); Calcium 9.4 mg/dl (8.6-10.3); Carbon Dioxide 30.0 mmol/L (21-32); Chloride 102.0 mmol/L (98-107); Creatinine Clr Calc Pharmacy 56.9 ml/min; Glucose 107.0 mg/dl (70-99(Fasting)); Potassium 4.3 mmol/L (3.5-5.1); Sodium 137.0 mmol/L (136-145)
[2025-03-19 06:26] LABS: INR 1.2 (0.9-1.1); Prothrombin Time 13.0 Seconds (9.0-12.0)
[2025-03-19 07:33] LABS: Hemoglobin A1C 5.7 % (4.5-5.6)
[2025-03-19 07:56] VITALS: RESP 18
[2025-03-19] MEDS: CLOPIDOGREL BISULFATE 75 MG TAB PO SCH (08:49)
[2025-03-19] MEDS: MULTIVITAMIN TAB PO SCH (08:49)
[2025-03-19] MEDS: ROSUVASTATIN CALCIUM 10 MG TAB PO SCH (08:49)
[2025-03-19] MEDS: ACETAMINOPHEN 325 MG TAB PO PRN (08:51)
--- NOTE | 2025-03-19 09:35 | Neurology Consultation ---
Date of Consultation March 19, 2025 Assessment & Plan (1) Complicated migraine: History of Present Illness Attending Physician: Sharif Drake MD History of Present Illness S: pt feeling much better with essentially resolved symptoms. mri brain negative. pt with again hyponatremia. pt known to me as i seen her in the past for similar issues. admission HPI: This is a 64-year-old female with the PMHx of[] presenting to [facility] for further evaluation of []. Patient is accompanied by[] who provide additional history. reports that she has had histories of TIAs and this feels similar. He drove home from the gym this morning and brought her immediately to the emergency department. Has had symptoms for the last 3 days. She states she was nauseous this morning and had multiple episodes of emesis. Reports a left hemispheric headache. States that she has had approximately 10- 12 migraines in her life but this does not feel similar. Patient states that she has high blood pressure. She offers no other complaints at this time They deny fever or chills. No cough or congestion. Denies chest pain or palpitations. No shortness of breath. They deny abdominal pain, nausea and vomiting. No urinary complaints. No recent changes in bowel movements. Patient denies recent changes in medications or OTC supplements. Patient offers no other complaints, today. Allergies Allergy/AdvReac Type Severity Reaction Status Date / Time iodine Allergy Intermediate rash Verified 02/09/25 09:48 adhesive Allergy Mild SKIN Verified 02/09/25 09:48 IRRITATION latex Allergy Unknown Unknown Verified 02/09/25 09:48 No Known Drug Allergies Allergy Verified 02/09/25 09:48 Home Medications Medication Instructions Recorded Confirmed Type coenzyme Q10 100 mg capsule 100 mg PO QAM 04/01/19 03/18/25 History multivitamin (Daily Multi-Vitamin 1 tab PO UD 09/30/20 03/18/25 History tablet) sodium chloride, sodium See Rx Instructions .Route 01/03/24 03/18/25 Rx bicarb-nasal rinse squeeze bottle .COMPLEX #50 ea with packet (Neilmed Sinus Rinse Complete with packet) ondansetron 4 mg disintegrating 4 mg PO Q8H PRN nausea and 04/29/24 03/18/25 Rx tablet vomiting #10 tabs ipratropium bromide 21 mcg (0.03 1 - 2 spray intranasal .1-2X DAILY 08/12/24 03/18/25 History %) nasal spray ketoconazole 2 % shampoo 1 applic topical .COMPLEX PRN Other 08/12/24 03/18/25 History metronidazole 0.75 % topical gel 1 applic topical UD 08/12/24 03/18/25 History rosuvastatin 10 mg tablet 10 mg PO QAM 08/12/24 03/18/25 History sumatriptan succinate 50 mg tablet 50 mg PO DAILY PRN Migraine 08/12/24 03/18/25 History Headache betamethasone dipropionate 0.05 % 1 applic topical BID PRN psoriasis 08/18/24 03/18/25 Rx topical ointment 14 days #45 grams clopidogrel 75 mg tablet 75 mg PO QAM #90 tabs 08/20/24 03/18/25 Rx citalopram 10 mg tablet 10 mg PO HS #90 tabs 10/12/24 03/18/25 Rx evolocumab 140 mg/mL subcutaneous 140 mg subcut .c8vpnnw #6 mL 01/20/25 03/18/25 Rx pen injector (Liv Frederick) hydroxyzine HCl 25 mg tablet See Rx Instructions PO .qhs PRN 03/06/25 03/18/25 Rx sleep #60 tabs famotidine 40 mg tablet 40 mg PO BID #60 tabs 03/16/25 03/18/25 Rx rimegepant 75 mg disintegrating 75 mg PO DAILY PRN migraine 03/18/25 Rx tablet (Nurtec ODT) headache #8 tabs Patient History Medical History Acute hyponatremia LOLIS (acute kidney injury) Nasal septal deviation Seborrheic keratosis Seborrheic dermatitis Rosacea Multiple benign nevi Milia Ganglion cyst of finger of right hand Dermatofibroma Carpal tunnel syndrome of right wrist Bunion of great toe Angioma Macular edema Migraine Dysfunctional uterine bleeding Anorexia nervosa Diverticulosis Hypercholesterolemia Finger fracture, left Surgical History S/P cardiac catheterization History of heart artery stent H/O foot surgery S/P tubal ligation S/P tonsillectomy H/O hand surgery History of dilation and curettage History of dental surgery History of colposcopy Cataract Family History (Updated 03/19/25 @ 03:36 by Sharif Drake MD) Aunt Breast cancer paternal Uncle Breast cancer maternal Mother Heart disease Hypertension Kidney disease Myocardial infarction Sister Kidney disease Heart disease New onset a-fib Father Lung cancer Denies family history of Ovarian cancer Prostate cancer Colorectal cancer Stroke Social History (Updated 03/19/25 @ 03:37 by Sharif Drake MD) Smoking Status: Never smoker Tobacco Type: Cigarettes Age Started Using Tobacco: 15; Age Quit Using Tobacco: 16; packs per day: 0.15; Second Hand Exposure: No; Do You Dip or Chew Tobacco: No; Hx Alcohol Use: Yes Alcohol type: beer and wine Alcohol Intake Frequency: 2-3 x/Week Hx Substance Use: No Preferred Language: Malay Communication Ability: Effective Visual Impairment: No Limitations Hearing Ability: Normal Risk Professional Required: No Beliefs That Will Affect Care: None marital status: Current Living Situation: Spouse Current Living Situation Comment: Van Walter (Son) current occupational status: other current occupation: has [employer] How many Children do You have: 1 Other Information That Helps Us Care for You: No Feels Safe at Home: Yes Safety Concerns: Feels Safe At This Time Childhood Exposure to Second-Hand Smoke: Yes Diet: regular caffeine: Yes during the past year weight has: remained stable Dental Care, Regularly: Yes Physical Activity Frequency: 3-4 Times per Week Seatbelt Use: always Sunscreen Use: Yes Assistive Devices: None Exam (Neuro) Physical Exam: HEENT: normocephalic grossly Neuro: Mental: AOx4, fluent speech, normal comprehension, no apraxia, no L/R confusion, no neglect CN: PERRL, Full EOM, symmetric face, Motor: No abnormal movements, normal tone, 5/5 t/o bilaterally Coord: intact Impression: 64 yo female with now essentially resolved migraine syndrome in setting of hyponatremia (recurrent). Recommendations: avoid triptan as pt has CAD MRI finding of small hemorrhage lesions is nonspecific and does not quite fit the typical CAA condition, but does need follow up scan, repeat mri brain in 1 yr. recommend trial of Mg L-threonate OTC med for migraine prevention. ([facility]tec not [facility] improve sleep as her chronic insomnia likely contributing also. no further work up need from neurology as this point. close monitoring for hyponatremia call again if new question. Chart reviewed I have spent more than 50% educating patient about potential diagnosis and neurological evaluation and coordinating care with patient's treatment team. Total time spent (including chart review and coordination of care): 45 min (this includes chart review). Results & Data Vital Signs (Past 12 Hours) Vital Signs Temp Pulse Pulse Resp BP Pulse Ox O2 Del Method 03/19/25 08:00 56 L 03/19/25 07:53 57 L 18 121/72 95 Room Air 03/19/25 04:18 36.6 C 56 L 15 115/74 96 Room Air 03/18/25 23:08 36.8 C 57 L 16 116/73 95 Room Air PG Care Time/CCT Total # of Minutes Spent Total Time Spent with Patient: Total time spent is greater than 50% in coordination of care (as documented) at patient's floor/unit and/or counseling patient: Coding Level of Care Code 84546 IN/OBS CONSULT LVL 3,45M Diagnoses Complicated migraine G43.109
--- NOTE | 2025-03-19 10:52 | XCELERA ---
[id number] [id number]
[2025-03-19 11:20] VITALS: BP 137/81; TEMP 98.6; O2SAT 94
[2025-03-19 13:52] VITALS: PULSE 67
--- NOTE | 2025-03-19 14:43 | Communication Note ---
Date of Service: March 19, 2025 By CMS guidelines, a determination that the admission or continued stay is not medically necessary has been made by a member of the UR committee and a physician for this hospital stay, therefore a Code 44 will be completed and the Inpatient admission will be changed to outpatient. Sharif Drake MD Attending physician
--- NOTE | 2025-03-19 14:45 | Discharge Summary ---
Discharge Summary Date of Service March 19, 2025 Principal Dx & Hospital Course #1 = Principal Diagnosis (1) Complicated migraine: (2) Lacunar stroke: (3) Silent micro-hemorrhage of brain: (4) Hyponatremia: (5) Elevated INR: (6) PAF (paroxysmal atrial fibrillation): (7) Coronary artery disease: (8) Dyslipidemia: (9) Retinitis pigmentosa: Plan Pleasant 64yo female with history of CAD with NSTEMI 2019 s/p RCA stent, PAF, hyperlipidemia, retinitis pigmentosa, and migraine headaches presents with left- sided headache beginning AM of 03/17, "babbling" of speech off & on since Sunday afternoon/evening, right arm numbness from the hand to the elbow region occurring twice (03/18 AM and 03/17 afternoon), and nausea/vomiting this morning. #suspected complicated migraine - -known h/o migraine headaches -began with neurological symptoms Sunday pm, progressing to left-sided headache starting 03/17/25 -additional neurological symptoms (numbness right arm) since the headache began -MRI brain negative for acute CVA, acute ICH, etc. -MRI brain does show multiple old lacunar strokes as well as microhemorrhages/hemosiderin deposition in various locations which may suggest CAA (see below) -can't rule out "stroke mimic" such as infectious process (UTI, etc) but much less likely -with her CAD, HTN, etc. triptans are contraindication -thus, [facility] and have order picker/assembler for use while here for her headache -while awaiting the Nurtec can give IV magnesium, anti-emetics, fioricet prn -consider steroids -with her complicated migraine, old lacunes seen on imaging, ?CAA on MRI brain - will have neurology consult, and ideally should f/u with [facility] in the clinic -to complete her w/u will repeat her echo in the am -please note that previous echo in early 2024 did NOT show PFO on bubble study #CAD s/p NSTEMI 2018 with RCA stent - -follows with Dr Willie Burgos, [facility] -no recent ischemic symptoms -cont plavix -cont statin -cont Repatha as outpatient -LDL was 46 in early January 2025 - defer on rechecking lipids while here -given her CAD, triptan therapy for migraines contraindicated; use [facility] ODT in [place] #lacunar strokes on MRI brain - -these were seen on MRI brain earlier this year -does have h/o PAF -CHADS-VASc score is a 5 (6 if you include HTN) -previously anticoagulation was advised but patient declined such at that time -would need to revisit this possibility but would want neurology input in light of ?CAA/microhemorrhages #abnormal brain MRI - -there is considerable atrophy on brain MRI along with chronic microvascular changes as well as hemosiderin deposition/microhemorrhages -these findings were seen on prior brain MRI -CAA (cerebral amyloid angiopathy)?? -will ask neurology to formally consult and weigh in on this -if CAA is present is that an absolute contraindication to anticoagulation?? -if she does have CAA she is at considerable risk of cognitive impairment long- term #h/o PAF - -previous event monitor in 2020 confirmed she was having runs of a.fib -anticoagulation discussed at that time in 2020; AC deferred -see discussion above -place on tele while here -echo #hyperlipidemia - -cont statin -defer on repeat lipid profile -check a1c in am -TSH in February 2025 wnl #?HTN - -patient denies this diagnosis -she has fluctuating BPs looking at her chart -would simply observe for now and defer on anti-hypertensives #DVT proph - -defer on chemical means for now -early ambulation #retinitis pigmentosa - -known diagnosis -follows with [facility] -no Rx available for this progressive condition -there has been talk about doing genetic testing, however, per patient pt's updated by phone he plans to go to pharmacy for the [facility] discussed MRI findings with him Admission HPI Per Admitting Provider Pleasant 64yo female with history of CAD s/p stent, PAF, hyperlipidemia, and migraine headaches presents with left-sided headache beginning AM of 03/17, "babbling" of speech off & on since Sunday afternoon/evening, right arm numbness from the hand to the elbow region occurring twice (03/18 AM and 03/17 afternoon), and nausea/vomiting this morning. Although she has a migraine history she states this headache feels somewhat different from her other migraines over the years. No photophobia or phonophobia. No eye pain. No motor weakness. Prior to [place] night she had been feeling well. No recent URI. No UTI symptoms. Had similar episode requiring admission earlier this year in 08/2024 - told she had "mini-strokes." Patient states she took sumatriptan on Sunday evening due to the symptoms she had been having but did not have headache at that time. Discharge Exam gen - occasional word-finding difficulties and difficulty with sentence structure but no aphasia or dysarthria; otherwise NAD, pleasant eyes - PERRL, EOMI HENT - MMM, no lesions, tongue midline neck - no JVD, no lymph nodes, no goiter heart - RRR, s1 s2, no murmur lungs - CTA b/l abd - soft NT ND BS+ ext - no edema, pulses 2+ b/l neuro - strength 5/5 x 4 exts; sensation intact to light touch x 4 exts; CN 3-12 intact; finger/nose/finger maneuver without ataxia; no dysarthria; no aphasia; occasional word-finding difficulties skin - no rash psych - a/o x 3 head - no tenderness to palpation over left scalp/temporal artery region Discharge Plan Discharge Items Reason For Visit: POSSIBLE TIA Follow-up/Referrals: Eugene Sutton, [Primary Care Provider] - Medications and DC Order Prescriptions: New Nurtec ODT 75 mg tablet,disintegrating 75 mg PO DAILY PRN (Reason: migraine headache) Qty: 8 1RF No Action citalopram 10 mg tablet 10 mg PO HS Qty: 90 1RF Repatha SureClick 140 mg/mL pen injector 140 mg subcut .[id number] Qty: 6 2RF hydroxyzine HCl 25 mg tablet See Rx Instructions PO .qhs PRN (Reason: sleep) Qty: 60 3RF Rx Instructions: 1-2 tabs PO .qhs PRN; famotidine 40 mg tablet 40 mg PO BID Qty: 60 2RF coenzyme Q10 100 mg capsule 100 mg PO QAM Patient Comments: 03/18- otc unable to verify multivitamin [Daily Multi-Vitamin] Tablet 1 tab PO UD Patient Comments: 03/18- otc unable to verify Rx Instructions: doesnt take it everyday. Takes po qam when she does take it Neilmed Sinus Rinse Complete Packet With Rinse Device See Rx Instructions .Route .COMPLEX Qty: 50 3RF Patient Comments: 03/18- otc/no fill history unable to verify Rx Instructions: use daily; clopidogrel 75 mg tablet 75 mg PO QAM Qty: 90 3RF ondansetron 4 mg tablet,disintegrating 4 mg PO Q8H PRN (Reason: nausea and vomiting) Qty: 10 1RF Patient Comments: 03/18- last filled 04/29/24 4 day supply #10 betamethasone dipropionate 0.05 % ointment 1 applic topical BID PRN (Reason: psoriasis) 14 Days Qty: 45 1RF Rx Instructions: Apply to affected areas on arms twice a day for up to 14 days, as needed for flaring. tapinarof [Vtama] 1 % cream 0 applic topical UD 0RF Patient Comments: 03/18- no fill history unable to verify ketoconazole 2 % shampoo 1 applic topical .COMPLEX PRN (Reason: Other) Patient Comments: 03/18- no fill history unable to verify Rx Instructions: 1 applic topical to the scalp 2-3 times a week. Allow to sit on the scalp for 5 minutes before rinsing. sumatriptan succinate 50 mg tablet 50 mg PO DAILY MDD 4tabs PRN (Reason: Migraine Headache) Patient Comments: 03/18- last filled 04/29/24 30 day supply Rx Instructions: take 1 tab at onset of headache; if no relief may repeat 1 tab after at least 2 hrs; max = 4 tabs/24 hr PO metronidazole 0.75 % gel 1 applic topical UD Patient Comments: 03/18- last filled 07/31 30 day supply Rx Instructions: 1 applic topically one applicator at night for 5 days.; ipratropium bromide 21 mcg (0.03 %) spray,non-aerosol 1 - 2 spray intranasal .1-2X DAILY Rx Instructions: USE 1-2 SPRAYS EACH NOSTRIL 1-2 TIMES DAILY FOR POST NASAL DRIP; administer into each nostril rosuvastatin 10 mg tablet 10 mg PO QAM Rx Instructions: TAKE 1 TABLET BY MOUTH EVERY DAY Admission Data Admit Date/Time: 03/18/25 14:22 Attending Provider: Sharif Drake Admit Provider: Sharif Drake Primary Care Provider: Eugene Sutton Other Providers: Sharif Drake; Ozzie Singh Hospital Stay Data Consultations 03/18/25 13:50 ED Decision to Admit Stat 03/19/25 08:00 Consult Neurology Routine Diagnostic Imagining Performed 03/18/25 11:36 CT angio head w con Stat CT angio neck with con Stat CT head/brain wo con Stat 03/18/25 13:21 MRI Brain [MR brain wo/w con] Stat Coding Diagnoses Complicated migraine G43.109 Lacunar stroke I63.81 Silent micro-hemorrhage of brain I61.8 Hyponatremia E87.1 Elevated INR R79.1 PAF (paroxysmal atrial fibrillation) I48.0 Coronary artery disease I25.10 Dyslipidemia E78.5 Retinitis pigmentosa H35.52
== END 2025-03-19 16:02 | disposition home or self-care (01) ==
LOC: ED 11:20 → INTOOBSV 14:22 → EDINP 14:22 → 4W 15:32